=== PATIENT | female | born 1935 | race Caucasian/White ===

== ENCOUNTER 2016-10-17 10:54 | Emergency (ER) | payer MEDICARE, OTHER ==
[~2016-10-17] VITALS: Ht 167.6 cm; Wt 54.0 kg
[~2016-10-17 10:54] MED LIST: AMIO200T PO; BACT800T5 PO; CHOL400D2 PO; DOXY100C PO; HYDR-3516 PO; LOSA25TA PO
[2016-10-17 10:55] VITALS: BP 176/81; PULSE 65; RESP 15; TEMP 97.8; O2SAT 97
[2016-10-17] MEDS ORDERED: EXCETAB2 PO (12:57)
--- NOTE | 2016-10-17 13:02 | PD ---
HPI Chief Complaint: Medical Clearance Time Seen by Provider: 12:39 Travel History International Travel<30 days: No Contact w/Intl Traveler<30days: No Traveled to known affect area: No History of Present Illness HPI The patient was seen and examined in the presence of the nurse. This patient reports that she went to bed feeling fine. She woke up this morning with some bruising left side of the face. She has no injury. Not having pain. No presyncopal symptoms. She takes no blood thinners. Severity is mild. No alleviating factors. Duration 6 hours PFSH Past Medical History Arthritis: Yes Asthma: No Atrial Fibrillation: Yes Autoimmune Disease: No Blood Disorders: No Anxiety: Yes Depression: Yes Heart Rhythm Problems: Yes (AF) Cancer: Yes (skin cancer, removed) Cardiovascular Problems: Yes (AFIB) High Cholesterol: No Chemotherapy: No Chest Pain: No Congestive Heart Failure: No COPD: Yes Cerebrovascular Accident: No Diabetes: No Diminished Hearing: No Endocrine: No Gastrointestinal Disorders: Yes GERD: Yes Genitourinary: No Headaches: Yes Hiatal Hernia: No Hypertension: Yes Immune Disorder: No Kidney Stones: No Musculoskeletal: Yes (Torn rotator cuff (R)) Neurologic: No Psychiatric: Yes Reproductive: No Respiratory: Yes Migraines: No Radiation Therapy: No Renal Failure: No Seizures: No Sickle Cell Disease: No Sleep Apnea: No Thyroid Disease: No Ulcer: No Menopausal: Yes : 2 Para: 2 Past Surgical History Abdominal Surgery: No AICD: No Arteriovenous Shunt: No Cardiac Surgery: No Ear Surgery: No Endocrine Surgery: No Eye Surgery: No Genitourinary Surgery: No Gynecologic Surgery: No Insulin Pump: No Joint Replacement: Yes (BL hips) Oral Surgery: No Pacemaker: No Thoracic Surgery: No Tonsillectomy: Yes Other Surgery: Yes Social History Alcohol Use: No Tobacco Use: No (QUIT 1966) Substance Use: No Allergies-Medications (Allergen,Severity, Reaction): Coded Allergies: Codeine (Verified Allergy, Severe, Itching, 10/17/16) Reported Meds & Prescriptions Reported Meds & Active Scripts Active Reported Excedrin Extra Strength (Fvgstpl-Jwgfhxuaxvovd-Heplzvog) 250-250-65 Mg Tab 2 Tab PO DAILY PRN Vitamin D (Cholecalciferol) 400 Unit/Ml Drops 400 Units PO DAILY Losartan (Losartan Potassium) 25 Mg Tab 25 Mg PO DAILY Hydrocodone-Acetaminophen 5-325 mg Tab 1 Tab PO Q6H PRN Amiodarone (Amiodarone HCl) 200 Mg Tab 200 Mg PO DAILY Review of Systems General / Constitutional: No: Fever Eyes: No: Visual changes HENT: No: Headaches Cardiovascular: No: Chest Pain or Discomfort Respiratory: No: Shortness of Breath Gastrointestinal: No: Abdominal Pain Genitourinary: No: Dysuria Musculoskeletal: No: Pain Skin: Positive Change in Pigmentation, No Rash Neurologic: No: Weakness Psychiatric: No: Depression Endocrine: No: Polydipsia Hematologic/Lymphatic: No: Easy Bruising Physical Exam Narrative GENERAL: Well-nourished, well-developed patient in no apparent distress. SKIN: Warm and dry. HEAD: There is some left medial periorbital ecchymosis. Normocephalic. No nasal bridge or orbital tenderness. EYES: Pupils equal and round. No scleral icterus. No injection or drainage. ENT: No nasal bleeding or discharge. Mucous membranes pink and moist. NECK: Trachea midline. No JVD. CARDIOVASCULAR: Regular rate and rhythm. No murmur appreciated. RESPIRATORY: No accessory muscle use. Clear to auscultation. Breath sounds equal bilaterally. GASTROINTESTINAL: Abdomen soft, non-tender, nondistended. Hepatic and splenic margins not palpable. MUSCULOSKELETAL: No obvious deformities. No clubbing. No cyanosis. No edema. NEUROLOGICAL: Awake and alert. No obvious cranial nerve deficits. Motor grossly within normal limits. Normal speech. PSYCHIATRIC: Appropriate mood and affect; insight and judgment normal. Data Data Last Documented VS Vital Signs Date Time Temp Pulse Resp B/P Pulse Ox O2 Delivery O2 Flow Rate FiO2 10/17/16 13:21 63 18 182/86 98 Room Air 10/17/16 10:55 97.8 Orders Complete Blood Count With Diff (10/17/16 12:54) Labs Laboratory Tests Test 10/17/16 13:00 White Blood Count 5.2 TH/MM3 Red Blood Count 3.57 MIL/MM3 Hemoglobin 11.7 GM/DL Hematocrit 35.1 % Mean Corpuscular Volume 98.4 FL Mean Corpuscular Hemoglobin 32.7 PG Mean Corpuscular Hemoglobin 33.2 % Concent Red Cell Distribution Width 14.9 % Platelet Count 221 TH/MM3 Mean Platelet Volume 7.2 FL Neutrophils (%) (Auto) 59.0 % Lymphocytes (%) (Auto) 27.4 % Monocytes (%) (Auto) 8.0 % Eosinophils (%) (Auto) 5.1 % Basophils (%) (Auto) 0.5 % Neutrophils # (Auto) 3.1 TH/MM3 Lymphocytes # (Auto) 1.4 TH/MM3 Monocytes # (Auto) 0.4 TH/MM3 Eosinophils # (Auto) 0.3 TH/MM3 Basophils # (Auto) 0.0 TH/MM3 CBC Comment DIFF FINAL Differential Comment MDM Medical Decision Making Medical Screen Exam Complete: Yes Emergency Medical Condition: Yes Medical Record Reviewed: Yes Differential Diagnosis ITP, critical thrombocytopenia, spontaneous ecchymosis Narrative Course I have reviewed the patient's electronic medical record. No prior lab studies on file CBC shows normal hemoglobin and normal platelet count Patient's exam other than some spontaneous ecchymosis looks normal with no tenderness or neurologic deficit. Recommend primary care follow-up to start Diagnosis Primary Impression: Facial bruising Qualified Code: S00.83XA - Facial bruising, initial encounter Additional Instructions: The patient was advised to follow up with their physician and return if they worsen. Med/Other Pt SpecificInfo: Other Disposition: 01 DISCHARGE HOME Condition: Stable Jayson Lutz MD Oct 17, 2016 13:02
[2016-10-17 13:21] VITALS: BP 182/86; PULSE 63; RESP 18; O2SAT 98
[2016-10-17 13:28] LABS: AUTOMATED NEUTROPHIL # 3.1 TH/MM3 (1.8-7.7); BASOPHIL % 0.5 % (0.0-2.0); EOSINOPHIL # 0.3 TH/MM3 (0-0.4); EOSINOPHIL % 5.1 % (0.0-4.0); HEMATOCRIT 35.1 % (35.0-46.0); HEMO FLAGS DIFF FINAL; LYMPH % 27.4 % (9.0-44.0); LYMPHOCYTE # 1.4 TH/MM3 (1.0-4.8); MEAN CELL VOLUME 98.4 FL (80.0-100.0); MEAN CORPUSCULAR HEMOGLOBIN 32.7 PG (27.0-34.0); MEAN CORPUSCULAR HGB CONC 33.2 % (32.0-36.0); PLATELET COUNT 221 TH/MM3 (150-450); RED BLOOD COUNT 3.57 MIL/MM3 (4.00-5.30); RED CELL DISTRIBUTION WIDTH 14.9 % (11.6-17.2); WHITE BLOOD COUNT 5.2 TH/MM3 (4.0-11.0)
== END 2016-10-17 14:40 | disposition home or self-care (01) ==
LOC: NEPA 10:54
DX: S00.83XA Contusion of other part of head, initial encounter (principal); I48.91 Unspecified atrial fibrillation; F32.9 Major depressive disorder, single episode, unspecified; J44.9 Chronic obstructive pulmonary disease, unspecified; K21.9 Gastro-esophageal reflux disease without esophagitis; I10 Essential (primary) hypertension; X58.XXXA Exposure to other specified factors, initial encounter; Y92.003 Bedroom of unspecified non-institutional (private) residence as the place of occurrence of the external cause
CPT/HCPCS: 85025; 99283

== ENCOUNTER 2017-09-02 23:16 | Emergency (ER) | payer MEDICARE, OTHER ==
[~2017-09-02] VITALS: Ht 167.6 cm; Wt 55.0 kg
[~2017-09-02 23:16] MED LIST changes: -BACT800T5 PO; -DOXY100C PO; +EXCETAB2 PO
[2017-09-02 23:24] VITALS: BP 150/68; PULSE 65; RESP 18; O2SAT 97
--- NOTE | 2017-09-03 00:25 | PD ---
HPI Chief Complaint: Fall Time Seen by Provider: 00:25 Travel History International Travel<30 days: No Contact w/Intl Traveler<30days: No Traveled to known affect area: No History of Present Illness HPI 82-year-old female came to the emergency room with history of trip and fall. Patient when she fell hit her head and fell on outstretched hand. Currently patient is complaining of left wrist pain and a skin tear on her right elbow area. She also is complaining of some head and neck pain. She is otherwise awake and answering questions appropriately. She was brought in by EMS and her wrist was splinted by them in the cardboard splint. [facility] Past Medical History Narrative Medical List of her past medical, surgical, social and family history is reviewed from the nursing note. Arthritis: Yes Asthma: No Atrial Fibrillation: Yes Autoimmune Disease: No Blood Disorders: No Anxiety: Yes Depression: Yes Heart Rhythm Problems: Yes (AF) Cancer: Yes (skin cancer, removed) Cardiovascular Problems: Yes (AFIB) High Cholesterol: No Chemotherapy: No Chest Pain: No Congestive Heart Failure: No COPD: Yes Cerebrovascular Accident: No Diabetes: No Diminished Hearing: No Endocrine: No Gastrointestinal Disorders: Yes GERD: Yes Genitourinary: No Headaches: Yes Hiatal Hernia: No Hypertension: Yes Immune Disorder: No Kidney Stones: No Musculoskeletal: Yes (Torn rotator cuff (R)) Neurologic: No Psychiatric: Yes Reproductive: No Respiratory: Yes Migraines: No Radiation Therapy: No Renal Failure: No Seizures: No Sickle Cell Disease: No Sleep Apnea: No Thyroid Disease: No Ulcer: No Menopausal: Yes : 2 Para: 2 Past Surgical History Abdominal Surgery: No AICD: No Arteriovenous Shunt: No Cardiac Surgery: No Ear Surgery: No Endocrine Surgery: No Eye Surgery: No Genitourinary Surgery: No Gynecologic Surgery: No Insulin Pump: No Joint Replacement: Yes (BL hips) Oral Surgery: No Pacemaker: No Thoracic Surgery: No Tonsillectomy: Yes Other Surgery: Yes Social History Alcohol Use: No Tobacco Use: No (QUIT 1966) Substance Use: No Allergies-Medications (Allergen,Severity, Reaction): Coded Allergies: codeine (Unverified Allergy, Severe, Itching, 09/02/17) Comments List of her allergies reviewed from the nursing note. Reported Meds & Prescriptions Reported Meds & Active Scripts Active Reported Mirtazapine 7.5 Mg Tab 7.5 Mg PO HS Latanoprost Opth Drops (Latanoprost) 0.005% Drops 1 Drop EACH EYE HS Refrigerate until opened. Klor-Con 10 (Potassium Chloride) 10 Meq Tab 10 Meq PO DAILY Furosemide 20 Mg Tab 20 Mg PO DAILY Folic Acid 0.8 Mg Tab 1 Mg PO DAILY Amlodipine (Amlodipine Besylate) 10 Mg Tab 10 Mg PO DAILY Xarelto (Rivaroxaban) 20 Mg Tab 20 Mg PO DAILY Vitamin B-12 (Cyanocobalamin) 1,000 Mcg Tab 1,000 Mcg PO DAILY Losartan (Losartan Potassium) 25 Mg Tab 25 Mg PO DAILY Hydrocodone-Acetaminophen 5-325 mg Tab 1 Tab PO Q6H PRN Amiodarone (Amiodarone HCl) 200 Mg Tab 200 Mg PO DAILY Narrative Medication List of her home medications reviewed from the nursing note. Review of Systems Except as stated in HPI: all other systems reviewed are Neg Physical Exam Narrative GENERAL: Awake, alert, elderly, frail, moderate distress SKIN: Focused skin assessment warm/dry. Moderate-sized skin tear on the right elbow posteriorly with some moderate oozing HEAD: Atraumatic. Normocephalic. EYES: Pupils equal and round. No scleral icterus. No injection or drainage. ENT: No nasal bleeding or discharge. Mucous membranes pink and moist. NECK: Trachea midline. No JVD. CARDIOVASCULAR: Regular rate and rhythm. No murmur appreciated. RESPIRATORY: No accessory muscle use. Clear to auscultation. Breath sounds equal bilaterally. GASTROINTESTINAL: Abdomen soft, non-tender, nondistended. Hepatic and splenic margins not palpable. MUSCULOSKELETAL: Right wrist deformity present but distal neurovascular check intact. No clubbing. No cyanosis. No edema. NEUROLOGICAL: Awake and alert. No obvious cranial nerve deficits. Motor grossly within normal limits. Normal speech. PSYCHIATRIC: Appropriate mood and affect; insight and judgment normal. Data Data Last Documented VS Orders Orders Ct Brain W/O Iv Contrast(Rout) (09/03/17 ) Ct Cerv Spine W/O Contrast (09/03/17 ) Wrist, Complete ([id number]) (09/03/17 ) Morphine Inj (Morphine Inj) (09/03/17 00:45) Ondansetron Inj (Zofran Inj) (09/03/17 00:45) Tetanus/Diphtheria Tox Adult (Tetanus/Di (09/03/17 00:45) Splinting (09/03/17 ) Wrist, Complete (Tpi2xng) (09/03/17 ) Ed Discharge Order (09/03/17 03:39) Fiberglass Sugartong Sp Ad Arm (09/03/17 ) Sling Cradle Arm (09/03/17 ) Diet Heart Healthy (09/03/17 Breakfast) MDM Medical Decision Making Medical Screen Exam Complete: Yes Emergency Medical Condition: Yes Medical Record Reviewed: Yes Differential Diagnosis Wrist fracture, intracranial bleed, cervical fracture Narrative Course 3:36 AM x-ray of the wrist was suggestive of displaced distal radius fracture. CT scan were negative for any intracranial bleed or cervical fracture. The oral surgery technician applied the sugar tong splint along with some manipulation. Postreduction x-ray shows significant anatomic alignment of the bony fragment. I discussed the case with the orthopedist Dr. Land was okay to discharge the patient home and she would follow-up in her office and decide if any surgery needed. I will discharge her home. Patient was medicated for pain. Procedures EKG Prior to Arrival: No Physician Communication Physician Communication Dr. Land Diagnosis Primary Impression: Fall Qualified Codes: W19.XXXA - Unspecified fall, initial encounter Additional Impressions: Wrist fracture Qualified Codes: S62.102A - Fracture of unspecified carpal bone, left wrist, initial encounter for closed fracture Closed head injury Qualified Codes: S09.90XA - Unspecified injury of head, initial encounter Skin tear of elbow without complication Qualified Codes: S51.011A - Laceration without foreign body of right elbow, initial encounter Referrals: Adeola Land MD 2 days Additional Instructions: Please follow-up with the orthopedist was name and number been given to you and the discharge instruction. Keep this splint clean and dry. Take Tylenol for pain. Return to the ER if the condition worsens or any other new concerns. Keep the arm elevated above the heart level to minimize the swelling. Med/Other Pt SpecificInfo: No Change to Meds Disposition: 01 DISCHARGE HOME Condition: Stable Rut Carmen MD Sep 03, 2017 00:25
[2017-09-03] MEDS ORDERED: VITA10002 PO (00:31)
[2017-09-03] MEDS ORDERED: XARE20TA PO (00:31)
[2017-09-03] MEDS ORDERED: FOLI800T PO (00:35)
[2017-09-03] MEDS ORDERED: FURO20TA PO (00:35)
[2017-09-03] MEDS ORDERED: KLOR10TA PO (00:35)
[2017-09-03] MEDS ORDERED: AMLO10TA2 PO (00:35)
[2017-09-03] MEDS ORDERED: LATA0.002 EACH EYE (00:35)
[2017-09-03] MEDS ORDERED: MIRT1TAB PO (00:35)
[2017-09-03] MEDS ORDERED: MORPHINE SULFATE 4 MG/ML INJ IV PUSH ONE (00:45)
[2017-09-03] MEDS ORDERED: ONDANSETRON HCL 4 MG/2 ML VIAL IV PUSH ONE (00:45)
[2017-09-03] MEDS ORDERED: TETANUS/DIPHTHERIA TOXOID ADULT 0.5 ML VIAL IM ONE (00:45)
--- NOTE | 2017-09-03 00:59 | RADRPT ---
EXAM DATE/TIME: 09/03/2017 00:41 [facility] COMPARISON: No previous studies available for comparison. INDICATIONS : Left wrist pain. MEDICAL HISTORY : None. SURGICAL HISTORY : None. ENCOUNTER: Initial ACUITY: 1 day PAIN SCORE: 8/10 LOCATION: Left wrist FINDINGS: AP, lateral and oblique views of the left wrist were obtained and demonstrate a transverse fracture t hrough the distal radius with slight impaction and dorsal angulation of the distal fracture fragment of approximately 40. There is a small nondisplaced fracture through the base of the ulnar styloid. T here is diffuse moderate osteopenia. Degenerative changes noted involving the first metacarpocarpal j oint and trapezium scaphoid joint with joint space loss, sclerosis and hypertrophic change. Soft tiss ue swelling is noted over the wrist. CONCLUSION: 1. Transverse fracture through the distal radius with dorsal angulation. 2. Small nondisplaced fracture through the base of the ulnar styloid. 3. Osteopenia and osteoarthritic change. Haroon Lanier MD on September 03, 2017 at 0:55 Board Certified Radiologist. This report was verified electronically.
--- NOTE | 2017-09-03 01:36 | RADRPT ---
EXAM DATE/TIME: 09/03/2017 01:14 [facility] COMPARISON: CT BRAIN W/O CONTRAST, March 21, 2015, 10:53. INDICATIONS : Trauma, fall. Left facial bruising. RADIATION DOSE: 35.33 CTDIvol (mGy) MEDICAL HISTORY : Hypertension. A-Fib. SURGICAL HISTORY : None. ENCOUNTER: Initial ACUITY: 1 day PAIN SCALE: 3/10 LOCATION: cranial TECHNIQUE: Multiple contiguous axial images were obtained of the head. Using automated exposure control and adj ustment of the mA and/or kV according to patient size, radiation dose was kept as low as reasonably a chievable to obtain optimal diagnostic quality images. DICOM format image data is available electro nically for review and comparison. FINDINGS: CEREBRUM: The ventricles are normal for age. Chronic small vessel ischemic changes are again noted in the [place] ventricular white matter. This is not significantly changed. No evidence of midline shift, mass lesio n, hemorrhage or acute infarction. No extra-axial fluid collections are seen. POSTERIOR FOSSA: The cerebellum and brainstem are intact. The 4th ventricle is midline. The cerebellopontine angle i s unremarkable. EXTRACRANIAL: The visualized portion of the orbits is intact. SKULL: The calvaria is intact. No evidence of skull fracture. CONCLUSION: 1. Soft tissue swelling over the left frontal bone with no evidence of fracture or hemorrhage. 2. Chronic small vessel ischemic change. Some report Haroon Lanier MD on September 03, 2017 at 1:33 Board Certified Radiologist. This report was verified electronically.
--- NOTE | 2017-09-03 01:51 | RADRPT ---
EXAM DATE/TIME: 09/03/2017 01:14 [facility] COMPARISON: No previous studies available for comparison. INDICATIONS : Trauma, fall. RADIATION DOSE: 12.52 CTDIvol (mGy) MEDICAL HISTORY : Hypertension. A-Fib. SURGICAL HISTORY : None. ENCOUNTER: Initial ACUITY: 1 day PAIN SCALE: 0/10 LOCATION: neck TECHNIQUE: Volumetric scanning of the cervical spine was performed. Multiplanar reconstructions in the sagittal, coronal and oblique axial planes were performed. Using automated exposure control and adjustment o f the mA and/or kV according to patient size, radiation dose was kept as low as reasonably achievable to obtain optimal diagnostic quality images. DICOM format image data is available electronically f or review and comparison. FINDINGS: The sagittal reconstructions demonstrate normal prevertebral soft tissues. The dens is intact and the re is a normal atlantoaxial relationship. There is a mild anterior spondylolisthesis of C3 on C4 and C4 on C5 of several millimeters. There is fusion of the C5 and C6 vertebral bodies. Degenerative gil ges present at the C6-7 level with disc space narrowing and hypertrophic change. There is a mild to m oderate scoliosis. There is diffuse osteopenia. The axial images demonstrate that the vertebral bodies and posterior elements are intact. The soft ti ssues are within normal limits. There is no evidence of acute fracture or malalignment. Degenerative changes are noted involving the facet joints. CONCLUSION: 1. No acute fracture. 2. Mild anterospondylolisthesis of C4 on C5-C3 on C4. 3. Osteopenia and mild to moderate scoliosis. 4. Partial fusion of the C5 and C6 vertebral bodies. 5. Degenerative disc change at the C6-7 level. Haroon Lanier MD on September 03, 2017 at 1:47 Board Certified Radiologist. This report was verified electronically.
--- NOTE | 2017-09-03 03:04 | RADRPT ---
EXAM DATE/TIME: 09/03/2017 02:25 [facility] COMPARISON: WRIST LEFT COMPLETE ([id number]), September 03, 2017, 0:41. INDICATIONS : Post reduction left wrist fracture. Pain.. MEDICAL HISTORY : None. SURGICAL HISTORY : None. ENCOUNTER: Subsequent ACUITY: 1 day PAIN SCORE: 4/10 LOCATION: Left wrist. FINDINGS: AP, lateral oblique view is of the left wrist were obtained and demonstrate overlying casting materia l obscuring the fine bony detail. The transverse fracture through the distal radius is again noted. T he previous noted dorsal angulation of the distal fracture fragment has been reduced. A small fractur e is again noted through the ulnar styloid. There is diffuse osteopenia and degenerative joint change s. CONCLUSION: Interval reduction of previously noted angulation of the fracture fragments. The frac ture fragments are now in near-anatomic alignment. Haroon Lanier MD on September 03, 2017 at 3:01 Board Certified Radiologist. This report was verified electronically.
== END 2017-09-03 10:06 | disposition home or self-care (01) ==
LOC: NEPC 23:16
DX: S52.502A Unspecified fracture of the lower end of left radius, initial encounter for closed fracture (principal); S52.615A Nondisplaced fracture of left ulna styloid process, initial encounter for closed fracture; M85.88 Other specified disorders of bone density and structure, other site; S09.90XA Unspecified injury of head, initial encounter; S51.011A Laceration without foreign body of right elbow, initial encounter; M54.2 Cervicalgia; I10 Essential (primary) hypertension; W01.0XXA Fall on same level from slipping, tripping and stumbling without subsequent striking against object, initial encounter; Z23 Encounter for immunization
CPT/HCPCS: 70450; 72125; 73110; 90471; 90714; 96374; 96375; 99285; J2270; J2405

== ENCOUNTER 2017-09-14 20:11 | Inpatient (IN) | payer MEDICARE, OTHER ==
[~2017-09-14] VITALS: Ht 167.6 cm; Wt 52.7 kg
[~2017-09-14 20:11] MED LIST changes: +AMLO10TA2 PO; -CHOL400D2 PO; -EXCETAB2 PO; +FOLI800T PO; +FURO20TA PO; +KLOR10TA PO; +LATA0.002 EACH EYE; +MIRT1TAB PO; +VITA10002 PO; +XARE20TA PO
[2017-09-14 20:14] VITALS: PULSE 118; RESP 18; TEMP 97.6; O2SAT 89
[2017-09-14] MEDS ORDERED: cefTRIAXone INJ 2,000 MG in SODIUM CHLORIDE 0.9% INJ 100 ML IV STA (20:19)
[2017-09-14] MEDS ORDERED: AZITHROMYCIN INJ 500 MG in SODIUM CHLOR 0.9% 250 ML INJ 250 ML IV STA (20:19)
--- NOTE | 2017-09-14 20:26 | PD ---
HPI Chief Complaint: Weakness Time Seen by Provider: 20:19 Travel History International Travel<30 days: No Contact w/Intl Traveler<30days: No History of Present Illness HPI The patient's 82 years old and arrives by EMS. EMS reports general weakness over the course of the day increasingly so. Nausea also reported. EMS notes applying a nonrebreather to the patient when they arrived on scene. Her O2 sat upon arrivals in the mid 90s. She complains of feeling cold and having no other upon arrival. In essence a heart rate of about 100-120 irregular consistent with a known history of A. fib. PFSH Past Medical History Arthritis: Yes Asthma: No Atrial Fibrillation: Yes Autoimmune Disease: No Blood Disorders: No Anxiety: Yes Depression: Yes Heart Rhythm Problems: Yes (AF) Cancer: Yes (skin cancer, removed) Cardiovascular Problems: Yes (AFIB) High Cholesterol: No Chemotherapy: No Chest Pain: No Congestive Heart Failure: No COPD: Yes Cerebrovascular Accident: No Diabetes: No Diminished Hearing: No Endocrine: No Gastrointestinal Disorders: Yes GERD: Yes Genitourinary: No Headaches: Yes Hiatal Hernia: No Hypertension: Yes Immune Disorder: No Kidney Stones: No Musculoskeletal: Yes (Torn rotator cuff (R)) Neurologic: No Psychiatric: Yes Reproductive: No Respiratory: Yes Migraines: No Radiation Therapy: No Renal Failure: No Seizures: No Sickle Cell Disease: No Sleep Apnea: No Thyroid Disease: No Ulcer: No Menopausal: Yes : 2 Para: 2 Past Surgical History Abdominal Surgery: No AICD: No Arteriovenous Shunt: No Cardiac Surgery: No Ear Surgery: No Endocrine Surgery: No Eye Surgery: No Genitourinary Surgery: No Gynecologic Surgery: No Insulin Pump: No Joint Replacement: Yes (BL hips) Oral Surgery: No Pacemaker: No Thoracic Surgery: No Tonsillectomy: Yes Other Surgery: Yes Social History Alcohol Use: No Tobacco Use: No (QUIT 1966) Substance Use: No Allergies-Medications (Allergen,Severity, Reaction): Coded Allergies: codeine (Unverified Allergy, Severe, Itching, 09/02/17) Reported Meds & Prescriptions Reported Meds & Active Scripts Active Reported Mirtazapine 7.5 Mg Tab 7.5 Mg PO HS Latanoprost Opth Drops (Latanoprost) 0.005% Drops 1 Drop EACH EYE HS Refrigerate until opened. Klor-Con 10 (Potassium Chloride) 10 Meq Tab 10 Meq PO DAILY Furosemide 20 Mg Tab 20 Mg PO DAILY Folic Acid 0.8 Mg Tab 1 Mg PO DAILY Amlodipine (Amlodipine Besylate) 10 Mg Tab 10 Mg PO DAILY Xarelto (Rivaroxaban) 20 Mg Tab 20 Mg PO DAILY Vitamin B-12 (Cyanocobalamin) 1,000 Mcg Tab 1,000 Mcg PO DAILY Losartan (Losartan Potassium) 25 Mg Tab 25 Mg PO DAILY Hydrocodone-Acetaminophen 5-325 mg Tab 1 Tab PO Q6H PRN Amiodarone (Amiodarone HCl) 200 Mg Tab 200 Mg PO DAILY Review of Systems Except as stated in HPI: all other systems reviewed are Neg General / Constitutional: Positive: Fever (EMS notes warm to touch) Physical Exam Narrative GENERAL: 82 yo F, well-nourished well-developed mild distress SKIN: Focused skin assessment warm/dry. HEAD: Atraumatic. Normocephalic. EYES: Pupils equal and round. No scleral icterus. No injection or drainage. ENT: No nasal bleeding or discharge. Mucous membranes pink and moist. NECK: Trachea midline. No JVD. CARDIOVASCULAR: Irregular. Heart rate about 110. RESPIRATORY: Coarse breath sounds in the left. Lungs clear in the right. GASTROINTESTINAL: Abdomen soft, non-tender, nondistended. Hepatic and splenic margins not palpable. MUSCULOSKELETAL: No obvious deformities. No clubbing. No cyanosis. No edema. Proximal medial right arm with a 2 cm skin tear. NEUROLOGICAL: Awake and alert. No obvious cranial nerve deficits. Motor grossly within normal limits. Normal speech. PSYCHIATRIC: Appropriate mood and affect; insight and judgment normal. Data Data Last Documented VS Vital Signs Date Time Temp Pulse Resp B/P (MAP) Pulse Ox O2 Delivery O2 Flow Rate FiO2 09/14/17 20:26 92 Nasal Cannula 2.00 09/14/17 20:14 97.6 118 18 Orders Orders Sepsis Workup Initiated (09/14/17 ) Electrocardiogram (09/14/17 20:19) Complete Blood Count With Diff (09/14/17 20:19) Comprehensive Metabolic Panel (09/14/17 20:19) Lactic Acid Sepsis Protocol (09/14/17 20:19) Urinalysis - C+S If Indicated (09/14/17 20:19) Influenzae A/B Antigen (09/14/17 20:19) Blood Culture (09/14/17 20:19) Chest, Single Ap (09/14/17 20:19) Blood Glucose (09/14/17 20:19) Ecg Monitoring (09/14/17 20:19) Iv Access Insert/Monitor (09/14/17 20:19) Oximetry (09/14/17 20:19) Oxygen Administration (09/14/17 20:19) Ceftriaxone Inj (Rocephin Inj) (09/14/17 20:19) Azithromycin Inj (Zithromax Inj) (09/14/17 20:19) Acetaminophen (Tylenol) (09/14/17 20:30) ^ Straight Catheter (09/14/17 21:12) B-Type Natriuretic Peptide (09/14/17 21:37) Admit Order (Ed Use Only) (09/14/17 ) Biomedical Engineering Internship / Telemetry [place].Q8H (09/14/17 21:44) Vital Signs (Adult) Q4H (09/14/17 21:44) Diet Heart Healthy (09/15/17 Breakfast) Activity Bed Rest (09/14/17 21:44) Labs Laboratory Tests Test 09/14/17 20:30 09/14/17 21:30 White Blood Count 18.9 TH/MM3 Red Blood Count 3.33 MIL/MM3 Hemoglobin 10.6 GM/DL Hematocrit 31.9 % Mean Corpuscular Volume 95.7 FL Mean Corpuscular Hemoglobin 31.8 PG Mean Corpuscular Hemoglobin Concent 33.3 % Red Cell Distribution Width 14.3 % Platelet Count 394 TH/MM3 Mean Platelet Volume 7.7 FL Neutrophils (%) (Auto) 89.4 % Lymphocytes (%) (Auto) 5.8 % Monocytes (%) (Auto) 2.4 % Eosinophils (%) (Auto) 2.1 % Basophils (%) (Auto) 0.3 % Neutrophils # (Auto) 16.9 TH/MM3 Lymphocytes # (Auto) 1.1 TH/MM3 Monocytes # (Auto) 0.5 TH/MM3 Eosinophils # (Auto) 0.4 TH/MM3 Basophils # (Auto) 0.1 TH/MM3 CBC Comment DIFF FINAL Differential Comment Blood Urea Nitrogen 37 MG/DL Creatinine 1.54 MG/DL Random Glucose 117 MG/DL Total Protein 6.2 GM/DL Albumin 2.6 GM/DL Calcium Level 8.2 MG/DL Alkaline Phosphatase 101 U/L Aspartate Amino Transf (AST/SGOT) 19 U/L Alanine Aminotransferase (ALT/SGPT) 16 U/L Total Bilirubin 0.5 MG/DL Sodium Level 141 MEQ/L Potassium Level 3.2 MEQ/L Chloride Level 108 MEQ/L Carbon Dioxide Level 23.5 MEQ/L Anion Gap 10 MEQ/L Estimat Glomerular Filtration Rate 32 ML/MIN Lactic Acid Level 2.0 mmol/L [facility] Medical Decision Making Medical Screen Exam Complete: Yes Emergency Medical Condition: Yes Medical Record Reviewed: Yes Differential Diagnosis Pneumonia, UTI, anemia, renal failure, electrolyte imbalance Narrative Course CBC & BMP Diagram 09/14/17 20:30 Total Protein 6.2 L, Albumin 2.6 L, Calcium Level 8.2 L, Alkaline Phosphatase 101, Aspartate Amino Transf (AST/SGOT) 19, Alanine Aminotransferase (ALT/SGPT) 16, Total Bilirubin 0.5 Lactic acid 2.0 Rocephin and azithromycin started. Concern for pneumonia potentially UTI. Influenza negative. BNP added. d/w Dr Solo Diagnosis Primary Impression: Pulmonary edema Qualified Codes: J81.0 - Acute pulmonary edema Additional Impression: Nausea Admitting Information Admitting Physician Requests: Admit Devin Martinez MD Sep 14, 2017 20:26
[2017-09-14] MEDS ORDERED: ACETAMINOPHEN 325 MG TAB PO ONE (20:30)
--- NOTE | 2017-09-14 20:47 | RADRPT ---
EXAM DATE/TIME: 09/14/2017 20:37 [facility] COMPARISON: CHEST SINGLE AP, July 14, 2014, 15:17. INDICATIONS : General weakness and possible fever. MEDICAL HISTORY : None. SURGICAL HISTORY : None. ENCOUNTER: Initial ACUITY: 1 day PAIN SCORE: 0/10 LOCATION: Bilateral chest FINDINGS: The heart size is upper limits of normal. The lungs demonstrate diffuse increased interstitial markin gs. There is focal alveolar density seen at the bases bilaterally. There is also some increased densi ty at the lateral right upper lung. There is a calcified granuloma in the lateral right upper lung. T here is a dextrocurvature of the thoracic spine. CONCLUSION: Diffuse increased interstitial markings likely related to edema. There is some accompanying atelectas is or consolidation at the lung bases and lateral right upper lung. Jourdan Betancourt MD on September 14, 2017 at 20:44 Board Certified Radiologist. This report was verified electronically.
[2017-09-14 21:01] LABS: AUTOMATED NEUTROPHIL # 16.9 TH/MM3 (1.8-7.7); BASOPHIL # 0.1 TH/MM3 (0-0.2); BASOPHIL % 0.3 % (0.0-2.0); EOSINOPHIL # 0.4 TH/MM3 (0-0.4); EOSINOPHIL % 2.1 % (0.0-4.0); HEMATOCRIT 31.9 % (35.0-46.0); HEMO FLAGS DIFF FINAL; LYMPH % 5.8 % (9.0-44.0); LYMPHOCYTE # 1.1 TH/MM3 (1.0-4.8); MEAN CELL VOLUME 95.7 FL (80.0-100.0); MEAN CORPUSCULAR HEMOGLOBIN 31.8 PG (27.0-34.0); MEAN CORPUSCULAR HGB CONC 33.3 % (32.0-36.0); MONO % 2.4 % (0.0-8.0); NEUT % 89.4 % (16.0-70.0); PLATELET COUNT 394 TH/MM3 (150-450); RED BLOOD COUNT 3.33 MIL/MM3 (4.00-5.30); RED CELL DISTRIBUTION WIDTH 14.3 % (11.6-17.2); WHITE BLOOD COUNT 18.9 TH/MM3 (4.0-11.0)
[2017-09-14 21:18] LABS: ANION GAP 10 MEQ/L (5-15); AST (GOT) 19 U/L (15-37); BICARBONATE 23.5 MEQ/L (21.0-32.0); BLOOD UREA NITROGEN 37 MG/DL (7-18); CHLORIDE 108 MEQ/L (98-107); GLOMERULAR FILTRATION RATE 32 ML/MIN (>89); POTASSIUM 3.2 MEQ/L (3.5-5.1); SODIUM (NA) 141 MEQ/L (136-145)
[2017-09-14 21:22] LABS: ALKALINE PHOSPHATASE 101 U/L (45-117); ALT (GPT) 16 U/L (10-53); TOTAL BILIRUBIN ADULT 0.5 MG/DL (0.2-1.0)
[2017-09-14] MEDS ORDERED: SODIUM CHLORIDE 0.9% FLUSH 10 ML FLUSH IV FLUSH PRN (22:00)
[2017-09-14] MEDS ORDERED: BISACODYL 10 MG SUPP RECTAL PRN (22:00)
[2017-09-14] MEDS ORDERED: FUROSEMIDE 20 MG/2 ML VIAL IV PUSH ONE (22:00)
[2017-09-14] MEDS ORDERED: LACTULOSE SYRUP 20 GM/30 ML CUP PO PRN (22:00)
[2017-09-14] MEDS ORDERED: ACETAMINOPHEN 325 MG TAB PO PRN (22:00)
[2017-09-14] MEDS ORDERED: MAGNESIUM HYDROXIDE SUSP 30 ML CUP PO PRN (22:00)
[2017-09-14] MEDS ORDERED: SENNOSIDES 8.6 MG TAB PO PRN (22:00)
[2017-09-14] MEDS ORDERED: DEXT 5%-NACL 0.45% 500 ML INJ 500 ML IV ONE (22:00)
[2017-09-14] MEDS ORDERED: ONDANSETRON HCL 4 MG/2 ML VIAL IVP PRN (22:00)
--- NOTE | 2017-09-14 22:00 | HHI.HP ---
HPI Service [facility] Primary Care Physician No Primary Care Physician Admission Diagnosis PNA; CHF; Hypoxia Diagnoses: (1) PNA (pneumonia) Diagnosis: Principal (2) COPD (chronic obstructive pulmonary disease) Diagnosis: Principal (3) CHF (congestive heart failure) Diagnosis: Principal (4) Hypoxia Diagnosis: Principal (5) JH (acute kidney injury) Diagnosis: Principal (6) A-fib Diagnosis: Principal (7) Wrist fracture Diagnosis: Principal Travel History International Travel<30 Days: No Contact w/Intl Traveler <30 Da: No Traveled to Known Affected Are: No History of Present Illness This is an 82-year-old female with a PMH of HTN, A. fib on Xarelto, Anxiety, Depression and presumed CHF who was brought to the ER by EMS secondary to generalized weakness in addition to SOB. O2 sat 89% on RA upon arrival. Pt w/ no significant complaints at this time. BP 100/54, HR 118, O2 sat, 89% on RA, Afebrile. WBC 18.9. Creatinine 1.54, produces 0.901 03/07/16. BNP 163. Lactic Acid 2.0. UA positive for UTI. CXR with increased interstitial markings likely edema, possibly consolidation at the lung bases and lateral right upper lung. S/p Rocephin/Zithro in ER. Review of Systems Except as stated in HPI: all other systems reviewed are Neg ROS: 14 point review of systems otherwise negative. Past Family Social History Past Medical History PMH: HTN, A. fib on Xarelto, Anxiety, Depression and presumed CHF Past Surgical History PAST SURGICAL HISTORY: Bilateral Hip Replacements, Tonsillectomy Allergies: Coded Allergies: codeine (Unverified Allergy, Severe, Itching, 09/02/17) Family History PAST FAMILY HISTORY: Reviewed. No h/o DM or CAD Social History PAST SOCIAL HISTORY: Negative for alcohol, tobacco or drugs. Physical Exam Vital Signs Vital Signs Date Time Temp Pulse Resp B/P (MAP) Pulse Ox O2 Delivery O2 Flow Rate FiO2 09/14/17 20:26 92 Nasal Cannula 2.00 09/14/17 20:14 97.6 118 18 89 Physical Exam PE: GENERAL: Elderly white female in no acute distress, resting comfortably. HEENT: PERRLA, EOMI. No scleral icterus or conjunctival pallor. No lid lag or facial droop. CARDIOVASCULAR: A-fib, HR 90's. No obvious murmurs to auscultation. No chest tenderness to palpation. RESPIRATORY: Coarse breath sounds, few crackles. Breath sounds equal bilaterally. GASTROINTESTINAL: Abdomen soft, non-tender, nondistended. BS normal. MUSCULOSKELETAL: Extremities without clubbing, cyanosis, or edema. No obvious deformities. Right wrist fx. NEUROLOGICAL: Awake, alert. No focal neurologic deficits. Moving both upper and lower extremities spontaneously. Laboratory Laboratory Tests Test 09/14/17 20:30 White Blood Count 18.9 Red Blood Count 3.33 Hemoglobin 10.6 Hematocrit 31.9 Mean Corpuscular Volume 95.7 Mean Corpuscular Hemoglobin 31.8 Mean Corpuscular Hemoglobin Concent 33.3 Red Cell Distribution Width 14.3 Platelet Count 394 Mean Platelet Volume 7.7 Neutrophils (%) (Auto) 89.4 Lymphocytes (%) (Auto) 5.8 Monocytes (%) (Auto) 2.4 Eosinophils (%) (Auto) 2.1 Basophils (%) (Auto) 0.3 Neutrophils # (Auto) 16.9 Lymphocytes # (Auto) 1.1 Monocytes # (Auto) 0.5 Eosinophils # (Auto) 0.4 Basophils # (Auto) 0.1 CBC Comment DIFF FINAL Differential Comment Blood Urea Nitrogen 37 Creatinine 1.54 Random Glucose 117 Total Protein 6.2 Albumin 2.6 Calcium Level 8.2 Alkaline Phosphatase 101 Aspartate Amino Transf (AST/SGOT) 19 Alanine Aminotransferase (ALT/SGPT) 16 Total Bilirubin 0.5 Sodium Level 141 Potassium Level 3.2 Chloride Level 108 Carbon Dioxide Level 23.5 Anion Gap 10 Estimat Glomerular Filtration Rate 32 Lactic Acid Level 2.0 Date/Time Source Procedure Growth Status 09/14/17 20:15 Blood Peripheral Aerobic Blood Culture Pending Received 09/14/17 20:15 Blood Peripheral Anaerobic Blood Culture Pending Received 09/14/17 20:30 Nasal Aspirate Influenza Types A,B Antigen (SAMANTHA) - Final NEGATIVE FOR FLU A AND B ANTIGEN.... Complete Result Diagram: 09/14/17202909/14/172029 Caprini VTE Risk Assessment Caprini VTE Risk Assessment: Mod/High Risk (score >= 2) Caprini Risk Assessment Model Point Value = 1 Point Value = 2 Point Value = 3 Point Value = 5 Age 41-60 Minor surgery BMI > 25 kg/m2 Swollen legs Varicose veins or History of unexplained or recurrent spontaneous Oral contraceptives or hormone replacement Sepsis (< 1 month) Serious lung disease, including pneumonia (< 1 month) Abnormal pulmonary function Acute myocardial infarction Congestive heart failure (< 1 month) History of inflammatory bowel disease Medical patient at bed rest Age 61-74 Arthroscopic surgery Major open surgery (> 45 min) Laparoscopic surgery (> 45 min) Malignancy Confined to bed (> 72 hours) Immobilizing plaster cast Central venous access Age >= 75 History of VTE Family history of VTE Factor V Leiden Prothrombin 30280L Lupus anticoagulant Anticardiolipin antibodies Elevated serum homocysteine Heparin-induced thrombocytopenia Other congenital or acquired thrombophilia Stroke (< 1 month) Elective arthroplasty Hip, pelvis, or leg fracture Acute spinal cord injury (< 1 month) Prophylaxis Regimen Total Risk Factor Score Risk Level Prophylaxis Regimen 0-1 Low Early ambulation 2 Moderate Order ONE of the following: *Sequential Compression Device (SCD) *Heparin 5000 units SQ BID 3-4 Higher Order ONE of the following medications: *Heparin 5000 units SQ TID *Enoxaparin/Lovenox 40 mg SQ daily (WT < 150 kg, CrCl > 30 mL/min) *Enoxaparin/Lovenox 30 mg SQ daily (WT < 150 kg, CrCl > 10-29 mL/min) *Enoxaparin/Lovenox 30 mg SQ BID (WT < 150 kg, CrCl > 30 mL/min) AND/OR *Sequential Compression Device (SCD) 5 or more Highest Order ONE of the following medications: *Heparin 5000 units SQ TID (Preferred with Epidurals) *Enoxaparin/Lovenox 40 mg SQ daily (WT < 150 kg, CrCl > 30 mL/min) *Enoxaparin/Lovenox 30 mg SQ daily (WT < 150 kg, CrCl > 10-29 mL/min) *Enoxaparin/Lovenox 30 mg SQ BID (WT < 150 kg, CrCl > 30 mL/min) AND *Sequential Compression Device (SCD) Assessment and Plan Problem List: (1) PNA (pneumonia) ICD Code: J18.9 - Pneumonia, unspecified organism (2) COPD (chronic obstructive pulmonary disease) ICD Code: J44.9 - Chronic obstructive pulmonary disease, unspecified (3) CHF (congestive heart failure) ICD Code: I50.9 - Heart failure, unspecified (4) Hypoxia ICD Code: R09.02 - Hypoxemia (5) JH (acute kidney injury) ICD Code: N17.9 - Acute kidney failure, unspecified (6) A-fib ICD Code: I48.91 - Unspecified atrial fibrillation (7) Wrist fracture ICD Code: S62.109A - Fracture of unspecified carpal bone, unspecified wrist, initial encounter for closed fracture Assessment and Plan A/P: 1. PNA: CXR w/ likely consolidation at bases/lateral right upper lung, images reviewed by me. WBC 18. S/p Rocephin/Zithro in ER. Follow up cultures, continue w/ IV Abx. 2. COPD: Chronic Respiratory Failure per records, no wheezing on exam. Xopenex prn. 3. CHF: Echo 01/20/14 w/ EF 50-55%, on diuretics at home for recurrent edema, CXR w/ diffuse increased interstitial marking likely due to edema. Repeat Echo to eval systolic/diastolic function. Lasix 20mg IV, monitor I/O. 4. Hypoxia: Multifactorial-COPD/PNA/CHF. O2 sat 89% on RA, currently 95% on 2L NC. Monitor O2 5. JH: Creatinine 1.54, previously 0.90 on 03/07/16. Gentle IVF, caution w/ pulmonary edema. Repeat labs in am. 6. A-fib: Chronic. Resume home Metoprolol and Xarelto. 7. Wrist Fx: s/p mechanical fall 09/03/17, seen in ER at that time, Wrist X- ray w/ distal radius fx, referred to Dr. Land, plan is for surgical intervention on . Will consult for further eval. Analgesics/antiemetics as needed. 8. DVT Prophylaxis: On Xarelto. 9. Social work for d/c planning as needed. 10. Case discussed w/ ER physician at length. Physician Certification 2 Midnight Certification Type: Admission for Inpatient Services Order for Inpatient Services The services are ordered in accordance with Medicare regulations or non- Medicare payer requirements, as applicable. In the case of services not specified as inpatient-only, they are appropriately provided as inpatient services in accordance with the 2-midnight benchmark. Estimated LOS (days): 2 days is the estimated time the patient will need to remain in the hospital, assuming treatment plan goals are met and no additional complications. Post-Hospital Plan: Not yet determined Mima Solo MD Sep 14, 2017 22:00
[2017-09-14 22:14] VITALS: BP 100/54; PULSE 100; RESP 16; O2SAT 95
[2017-09-14 22:21] LABS: BACTERIA, URINE MOD /hpf; BLOOD, URINE NEG (NEG); GLUCOSE,URINE NEG (NEG); KETONE, URINE NEG (NEG); MUCUS URINE FEW /lpf (OCC); NITRITE,URINE NEG (NEG); URINE COLOR YELLOW (YELLW/STRAW)
[2017-09-14 22:22] LABS: COMMENT (UR) CATH-CULTURE IND; CULTURE IF INDICATED CATH CULTURE IND
[2017-09-14] MEDS ORDERED: RESP: LEVALBUTEROL HYDROCHLORIDE 1.25 MG/3 ML NEB (PRN) NEB (22:30)
[2017-09-14] MEDS: MIRTAZAPINE 15 MG TAB PO SCH (22:44)
[2017-09-14] MEDS ORDERED: PILL SPLITTER OTHER PRN (22:45)
[2017-09-14 23:57] VITALS: BP 111/60; PULSE 99; RESP 16; O2SAT 98
[2017-09-15] VITALS (8 sets, daily range): BP systolic 97–132; BP diastolic 50–62; PULSE 61–98; RESP 16–20; TEMP 96.1–98.7; O2SAT 94–99
[2017-09-15 05:39] LABS: AUTOMATED NEUTROPHIL # 18.8 TH/MM3 (1.8-7.7); BASOPHIL % 0.2 % (0.0-2.0); EOSINOPHIL # 0.4 TH/MM3 (0-0.4); EOSINOPHIL % 1.8 % (0.0-4.0); HEMATOCRIT 25.1 % (35.0-46.0); HEMO FLAGS DIFF FINAL; LYMPHOCYTE # 0.8 TH/MM3 (1.0-4.8); MEAN CELL VOLUME 94.2 FL (80.0-100.0); MEAN CORPUSCULAR HEMOGLOBIN 32.5 PG (27.0-34.0); MEAN CORPUSCULAR HGB CONC 34.5 % (32.0-36.0); MONO % 2.6 % (0.0-8.0); NEUT % 91.4 % (16.0-70.0); PLATELET COUNT 298 TH/MM3 (150-450); RED BLOOD COUNT 2.67 MIL/MM3 (4.00-5.30); RED CELL DISTRIBUTION WIDTH 14.7 % (11.6-17.2); WHITE BLOOD COUNT 20.5 TH/MM3 (4.0-11.0)
[2017-09-15 06:10] LABS: BICARBONATE 26.8 MEQ/L (21.0-32.0); CALCIUM-PROTEIN CORRECTED 8.7 MG/DL (8.5-10.1); POTASSIUM 3.2 MEQ/L (3.5-5.1); TOTAL BILIRUBIN ADULT 0.4 MG/DL (0.2-1.0)
--- NOTE | 2017-09-15 08:20 | PD.CONS ---
HPI Service Orthopedic Surgeons Consult Requested By Primary Care Physician No Primary Care Physician Admission Diagnosis PNA; CHF; Hypoxia Diagnoses: (1) PNA (pneumonia) Diagnosis: Principal (2) COPD (chronic obstructive pulmonary disease) (3) CHF (congestive heart failure) (4) Hypoxia (5) JH (acute kidney injury) (6) A-fib (7) Wrist fracture Diagnosis: Secondary Chief Complaint: shortness of breath and left wrist fracture History of Present Illness Patient is an 82-year-old female who presented to [place] with shortness of breath and difficulty breathing, suspicion for pneumonia. Of note, patient did have a left distal radius fracture on September 02 for which she was scheduled for surgery tomorrow, 09/16, pending medical and cardiac clearance. Patient reports she feels a little better already this morning compared to yesterday evening. Denies any new injuries. Review of Systems Constitutional: DENIES: Fever Endocrine: DENIES: Heat/cold intolerance Eyes: DENIES: Blurred vision Ears, nose, mouth, throat: DENIES: Throat pain Respiratory: COMPLAINS OF: Shortness of breath Cardiovascular: DENIES: Chest pain Gastrointestinal: DENIES: Abdominal pain Genitourinary: DENIES: Urinary incontinence Musculoskeletal: COMPLAINS OF: Joint pain, Muscle aches Integumentary: DENIES: Rash Hematologic/lymphatic: COMPLAINS OF: Bruising Immunologic/allergic: DENIES: Eczema Neurologic: DENIES: Abnormal gait Psychiatric: DENIES: Anxiety Past Family Social History Past Medical History PMH: HTN, A. fib on Xarelto, Anxiety, Depression and presumed CHF Past Surgical History PAST SURGICAL HISTORY: Bilateral Hip Replacements, Tonsillectomy Allergies: Coded Allergies: codeine (Unverified Allergy, Severe, Itching, 09/02/17) Active Ordered Medications Current Medications Medications (Trade) Dose Ordered Sig/Herlinda Route Start Time Stop Time Status Last Admin Ceftriaxone Sodium 1000 mg/ Sodium Chloride 100 ml @ 200 mls/hr Q24H IV 09/15/17 21:00 Azithromycin 500 mg/Sodium Chloride 250 ml @ 250 mls/hr Q24H IV 09/15/17 21:00 (Xopenex Neb) 1.25 mg Q4HR NEB PRN NEB 09/14/17 22:30 (Symbicort 160-4.5 Mcg Inh) 2 puff Q12HR INH 09/15/17 09:00 (NS Flush) 2 ml UNSCH PRN IV FLUSH 09/14/17 22:00 (NS Flush) 2 ml BID IV FLUSH 09/15/17 09:00 (Zofran Inj) 4 mg Q6H PRN IVP 09/14/17 22:00 (Tylenol) 650 mg Q6H PRN PO 09/14/17 22:00 (Morphine Inj) 2 mg Q3H PRN IV 09/14/17 22:45 (Velia-Colace) 1 tab BID PO 09/15/17 09:00 (Milk Of Magnesia Liq) 30 ml Q12H PRN PO 09/14/17 22:00 (Senokot) 17.2 mg Q12H PRN PO 09/14/17 22:00 (Dulcolax Supp) 10 mg DAILY PRN RECTAL 09/14/17 22:00 (Lactulose Liq) 30 ml DAILY PRN PO 09/14/17 22:00 (Cordarone) 200 mg DAILY PO 09/15/17 09:00 (Norvasc) 10 mg DAILY PO 09/15/17 09:00 (Vitamin B12) 1,000 mcg DAILY PO 09/15/17 09:00 (Folate) 1 mg DAILY PO 09/15/17 09:00 (Lasix) 20 mg DAILY PO 09/15/17 09:00 (Xalatan 0.005% Opth Soln) 1 drop HS EACH EYE 09/15/17 21:00 (Remeron) 7.5 mg HS PO 09/14/17 22:00 09/14/17 22:44 (Xarelto) 20 mg DAILY PO 09/15/17 09:00 (Pill Splitter) 1 ea UNSCH PRN OTHER 09/14/17 22:45 Reported Meds & Active Scripts Active Reported Mirtazapine 7.5 Mg Tab 7.5 Mg PO HS Latanoprost Opth Drops (Latanoprost) 0.005% Drops 1 Drop EACH EYE HS Refrigerate until opened. Klor-Con 10 (Potassium Chloride) 10 Meq Tab 10 Meq PO DAILY Furosemide 20 Mg Tab 20 Mg PO DAILY Folic Acid 0.8 Mg Tab 1 Mg PO DAILY Amlodipine (Amlodipine Besylate) 10 Mg Tab 10 Mg PO DAILY Xarelto (Rivaroxaban) 20 Mg Tab 20 Mg PO DAILY Vitamin B-12 (Cyanocobalamin) 1,000 Mcg Tab 1,000 Mcg PO DAILY Losartan (Losartan Potassium) 25 Mg Tab 25 Mg PO DAILY Hydrocodone-Acetaminophen 5-325 mg Tab 1 Tab PO Q6H PRN Amiodarone (Amiodarone HCl) 200 Mg Tab 200 Mg PO DAILY Family History PAST FAMILY HISTORY: Reviewed. No h/o DM or CAD Social History PAST SOCIAL HISTORY: Negative for alcohol, tobacco or drugs. Physical Exam Vital Signs Vital Signs Date Time Temp Pulse Resp B/P (MAP) Pulse Ox O2 Delivery O2 Flow Rate FiO2 09/15/17 03:00 98.2 84 17 123/62 (82) 94 09/15/17 02:53 09/15/17 02:51 98 16 110/60 (77) 99 Nasal Cannula 2.00 09/14/17 23:57 99 16 111/60 (77) 98 Nasal Cannula 2.00 09/14/17 22:14 100 16 100/54 (69) 95 Nasal Cannula 2.00 09/14/17 20:26 92 Nasal Cannula 2.00 09/14/17 20:14 97.6 118 18 89 Physical Exam Awake, alert, no acute distress Normocephalic with mild ecchymosis over her face, this is stable from Friday's exam in clinic Pupils equal Moist because membranes No JVD Nonlabored respirations on nasal cannula Regular rate Soft non tender abdomen Left upper extremity: In splint which remains intact. Patient does move her fingers. She has sensation intact over distal fingers. Brisk cap refill Right upper extremity and bilateral lower extremities without deformity or tenderness to palpation. Patient appears neurovascularly intact with full active range of motion and strength. Sensation intact. Radial and dorsalis pedis pulses are palpable. No rash Normal affect Laboratory Laboratory Tests Test 09/14/17 20:30 09/14/17 21:30 09/15/17 04:43 White Blood Count 18.9 20.5 Red Blood Count 3.33 2.67 Hemoglobin 10.6 8.7 Hematocrit 31.9 25.1 Mean Corpuscular Volume 95.7 94.2 Mean Corpuscular Hemoglobin 31.8 32.5 Mean Corpuscular Hemoglobin Concent 33.3 34.5 Red Cell Distribution Width 14.3 14.7 Platelet Count 394 298 Mean Platelet Volume 7.7 7.5 Neutrophils (%) (Auto) 89.4 91.4 Lymphocytes (%) (Auto) 5.8 4.0 Monocytes (%) (Auto) 2.4 2.6 Eosinophils (%) (Auto) 2.1 1.8 Basophils (%) (Auto) 0.3 0.2 Neutrophils # (Auto) 16.9 18.8 Lymphocytes # (Auto) 1.1 0.8 Monocytes # (Auto) 0.5 0.5 Eosinophils # (Auto) 0.4 0.4 Basophils # (Auto) 0.1 0.0 CBC Comment DIFF FINAL DIFF FINAL Differential Comment Blood Urea Nitrogen 37 34 Creatinine 1.54 1.50 Random Glucose 117 120 Total Protein 6.2 4.8 Albumin 2.6 1.9 Calcium Level 8.2 7.4 Alkaline Phosphatase 101 75 Aspartate Amino Transf (AST/SGOT) 19 12 Alanine Aminotransferase (ALT/SGPT) 16 12 Total Bilirubin 0.5 0.4 Sodium Level 141 143 Potassium Level 3.2 3.2 Chloride Level 108 109 Carbon Dioxide Level 23.5 26.8 Anion Gap 10 7 Estimat Glomerular Filtration Rate 32 33 Lactic Acid Level 2.0 B-Type Natriuretic Peptide 163 Urine Color YELLOW Urine Turbidity HAZY Urine pH 5.0 Urine Specific Lamont 1.009 Urine Protein TRACE Urine Glucose (UA) NEG Urine Ketones NEG Urine Occult Blood NEG Urine Nitrite NEG Urine Bilirubin NEG Urine Urobilinogen LESS THAN 2.0 Urine Leukocyte Esterase MOD Urine RBC LESS THAN 1 Urine WBC 10 Urine Amorphous Sediment FEW Urine Bacteria MOD Urine Mucus FEW Microscopic Urinalysis Comment CATH-CULTURE IND Protein Corrected Calcium 8.7 Date/Time Source Procedure Growth Status 09/14/17 20:15 Blood Peripheral Aerobic Blood Culture Pending Received 09/14/17 20:15 Blood Peripheral Anaerobic Blood Culture Pending Received 09/14/17 20:30 Nasal Aspirate Influenza Types A,B Antigen (SAMANTHA) - Final NEGATIVE FOR FLU A AND B ANTIGEN.... Complete 09/14/17 21:30 Urine Catheterized Urine Urine Culture Pending Received Result Diagram: 09/15/1744209/15/17442 Imaging Left wrist radiographs from 09/12 demonstrate a significantly dorsally angulated and displaced distal radius extra articular fracture. Assessment & Plan Assessment and Plan Patient is an 82-year-old female who presented to the hospital with shortness of breath and difficulty breathing, found to have a UTI and Pneumonia. In addition, patient does have a known distal radius fracture for which she is scheduled for surgery tomorrow. Options of management were discussed with the patient and her daughter, FAUSTINO, on Friday in my office. Decision for surgery was made at that time for open reduction internal fixation of her left distal radius. The plan was to attempt to obtain medical and cardiac clearance today. Will ask medicine to optimize and cardiology to evaluate prior to surgery, planned tomorrow afternoon. I will ask that is a relatively held with this in mind, and patient could be started on a more reversible or shorter duration half-life anticoagulation such as Lovenox or heparin. Patient will be nothing by mouth at midnight for possible surgery tomorrow. Adeola Land MD Sep 15, 2017 08:20
[2017-09-15] MEDS ORDERED: AMIODARONE 200 MG TAB PO SCH (09:00)
[2017-09-15] MEDS: BUDESONIDE-FORMOTEROL 160/4.5 MCG INHALER INH SCH ×2 (09:00→21:00)
[2017-09-15] MEDS: SODIUM CHLORIDE 0.9% FLUSH 10 ML FLUSH IV FLUSH SCH ×2 (09:00→21:00)
[2017-09-15] MEDS ORDERED: RIVAROXABAN 20 MG TAB PO SCH (09:00)
[2017-09-15] MEDS: DOCUSATE SODIUM 50 MG/SENNA 8.6 MG TAB PO SCH ×2 (09:00→22:50)
[2017-09-15] MEDS: FOLIC ACID 1 MG TAB PO SCH (10:52)
[2017-09-15] MEDS: FUROSEMIDE 20 MG TAB PO SCH (10:52)
[2017-09-15] MEDS: CYANOCOBALAMIN 1,000 MCG TAB PO SCH (10:52)
--- NOTE | 2017-09-15 14:57 | HHI.PR ---
Subjective Remarks states she was having chills - that's why she was brought in here denies any headaches, cough on admission- noted to be hypoxemic with infiltrates on XRAy with leukocytosis telemetry- episode of a fib with pause by hsitory - history of a fib S/P ablation Objective Vitals Vital Signs Date Time Temp Pulse Resp B/P (MAP) Pulse Ox O2 Delivery O2 Flow Rate FiO2 09/15/17 12:00 96.4 74 16 110/52 (71) 96 09/15/17 08:00 96.1 71 18 113/60 (77) 97 09/15/17 03:00 98.2 84 17 123/62 (82) 94 09/15/17 02:53 09/15/17 02:51 98 16 110/60 (77) 99 Nasal Cannula 2.00 09/14/17 23:57 99 16 111/60 (77) 98 Nasal Cannula 2.00 09/14/17 22:14 100 16 100/54 (69) 95 Nasal Cannula 2.00 09/14/17 20:26 92 Nasal Cannula 2.00 09/14/17 20:14 97.6 118 18 89 I/O 09/14/17 09/14/17 09/14/17 09/15/17 09/15/17 09/15/17 07:00 15:00 23:00 07:00 15:00 23:00 Intake Total 350 ml 740 ml Balance 350 ml 740 ml Intake Oral 240 ml IV Total 350 ml 500 ml # Voids 1 4 # Bowel Movements 0 Result Diagram: 09/15/17 0443 09/15/17 0443 Imaging Last Impressions Chest X-Ray 09/14/17 2019 Signed Impressions: Service Date/Time: Thursday, September 14, 2017 20:37 - CONCLUSION: Diffuse increased interstitial markings likely related to edema. There is some accompanying atelectasis or consolidation at the lung bases and lateral right upper lung. Jourdan Betancourt MD Objective Remarks awake and alert oriented to person, and place old ecchymoses left side of face + bruit left carotid anicteric decrease breath sounds, regular rhythm + 3/6 systolic murmur left sternal border abdomen soft, nontender extremities - LUE- soft cast in place LE no edema, moves both lower extremities spontanously but weak A/P Problem List: (1) PNA (pneumonia) ICD Code: J18.9 - Pneumonia, unspecified organism (2) COPD (chronic obstructive pulmonary disease) ICD Code: J44.9 - Chronic obstructive pulmonary disease, unspecified (3) CHF (congestive heart failure) ICD Code: I50.9 - Heart failure, unspecified (4) Hypoxia ICD Code: R09.02 - Hypoxemia (5) JH (acute kidney injury) ICD Code: N17.9 - Acute kidney failure, unspecified (6) A-fib ICD Code: I48.91 - Unspecified atrial fibrillation (7) Wrist fracture ICD Code: S62.109A - Fracture of unspecified carpal bone, unspecified wrist, initial encounter for closed fracture Assessment and Plan 82 years old likely with underlying dementia- she only recalls Dr. Gabriel as her PCP PNA: CXR w/ likely consolidation at bases/lateral right upper lung, images reviewed by me. WBC 18. on Rocephin/Zithro . continue w/ IV Abx. ff blood cultures UTI- gram negative rods- on IV antibiotics Leukocytosis- on IV antiibotics- ff CBC Acute respiratory failure- continue on 02 supplement CHF: Echo 01/20/14 w/ EF 50-55%, on diuretics at home for recurrent edema, CXR w / diffuse increased interstitial marking likely due to edema. Heart murmur on exam r/o History of A fib S/P ablation- RVR on admission now rate controlled on telemetry with 2 seconds pause- brief asymptomatic Repeat Echo to eval systolic/diastolic function. Lasix 20mg IV, monitor I/ O. try to get records continue on Lasix 20 mg. On Xarelto Monitor on Amiodarone d/w daughter- ff by Dr. Leon as OP - was set up to see him this week for ff up Hypoxia: Multifactorial-COPD/PNA/CHF. O2 sat 89% on RA, currently 95% on 2L NC. Monitor O2 JH: r/o underlying CKI will try to get more recent labs from clinic for comparison Creatinine 1.54, previously 0.90 on 03/07/16. - in EMR Gentle IVF, caution w/ pulmonary edema. Repeat labs in am. Anemia- drop in H- received 1L IV- recheck in am. no external signs of bleeding Hypokalemia- replace with KCL 10 meq IV x 1. KCL po x 1. BMP in am Wrist Fx: s/p mechanical fall 09/03/17, seen in ER at that time, Wrist X-ray w/ distal radius fx, referred to Dr. Land, plan is for surgical intervention. Analgesics/ antiemetics as needed. Carotid bruit Left get carotid US DVT Prophylaxis: On Xarelto. Social work for d/c planning as needed. called phone # listed on phone- no answer Bree Terrell MD Sep 15, 2017 14:57
[2017-09-15] MEDS ORDERED: POTASSIUM CHLORIDE 25 MEQ EFFERVESCENT TAB PO ONE (15:15)
[2017-09-15] MEDS ORDERED: POTASSIUM CHLOR 10 MEQ PREMIX 100 ML IV ONE (15:15)
--- NOTE | 2017-09-15 17:57 | EKG ---
Date Performed: 09/14/2017 Time Performed: 20:30:13 PTAGE: 82 years EKG: ATRIAL FIBRILLATION WITH RAPID VENTRICULAR RESPONSE NONSPECIFIC ST & T-WAVE ABNORMALITY ABN ORMAL RHYTHM ECG Since PREVIOUS TRACING , no significant change noted PREVIOUS TRACIN01/21/2014 15.36 DOCTOR: Portia Norwood Interpretating Date/Time 09/15/2017 17:55:56
--- NOTE | 2017-09-15 22:44 | RADRPT ---
EXAM DATE/TIME: 09/15/2017 18:57 [facility] COMPARISON: No previous studies available for comparison. EXTERNAL COMPARISON : [facility], MRA CAROTIDS W/ 3D PROC. W CONTRAST November 09, 2015., November 09, 2015 INDICATIONS : Bruit, left side. MEDICAL HISTORY : Chronic obstructive pulmonary disease. Hypertension. Gastroesophageal reflux disease. Atrial fibrilla tion. Dizziness. Congestive heart failure. Emphysema. Arthritis. SURGICAL HISTORY : Tonsillectomy. Bilateral hip replacement. Left knee surgery. Skin cancer removed. ENCOUNTER: Initial ACUITY: 1 day PAIN SCORE: 10/08 LOCATION: Bilateral neck PEAK SYSTOLIC VELOCITIES (cm/sec): ICA/CCA RATIO: Right: 1.1 Left: 2.2 ICA: Right: 95.0 Left: 168.9 CCA: Right: 89.1 Left: 77.4 ECA: Right: 81.4 Left: 98.8 VERTEBRAL: Right: 59.6 antegrade Left: 61.2 antegrade Elevated flow velocities and ICA/CCA ratios have been found to correlate with increased degrees of vessel stenosis, calculated as percentage of diameter relative to a normal segment of distal ICA/CCA FINDINGS: RIGHT CAROTID: No significant stenosis is visualized. The waveforms are within normal limits. LEFT CAROTID: Focal echogenic plaque in the carotid bulb and distal common carotid artery. There is mild widening of the velocity spectrum. VERTEBRAL ARTERIES: Antegrade flow is seen in both vertebral arteries. MISCELLANEOUS: None. CONCLUSION: 1. Moderate plaque formation in the left carotid bulb with hemodynamic profile characteristic of 50-6 9% stenosis. 2. Normal hemodynamic profile on the right. Enrique Wasserman MD on September 15, 2017 at 22:38 Board Certified Radiologist. This report was verified electronically.
[2017-09-15] MEDS: AZITHROMYCIN INJ 500 MG in SODIUM CHLOR 0.9% 250 ML INJ 250 ML IV SCH (22:48)
[2017-09-15] MEDS: cefTRIAXone INJ 1,000 MG in SODIUM CHLORIDE 0.9% INJ 100 ML IV SCH (22:48)
[2017-09-15] MEDS: MIRTAZAPINE 15 MG TAB PO SCH (22:49)
[2017-09-16] VITALS (9 sets, daily range): BP systolic 106–130; BP diastolic 52–57; PULSE 64–98; RESP 16–20; TEMP 96.2–98.5; O2SAT 94–98
[2017-09-16] MEDS ORDERED: LACTATED RINGER'S 1000 ML IV PRN (05:15)
[2017-09-16] MEDS ORDERED: CHLORHEXIDINE GLUCONATE 2 % 1 PACK (2 CLOTHS) TOPICAL PRN (05:15)
[2017-09-16] MEDS ORDERED: SODIUM CHLORID 0.9% 500 ML IV PRN (05:15)
[2017-09-16] MEDS ORDERED: POVIDONE IODINE 5% (ANTISEPSIS KIT) 4 APPLICATIONS EACH NARE PRN (05:15)
[2017-09-16 08:40] LABS: HEMATOCRIT 26.2 % (35.0-46.0); MEAN CORPUSCULAR HEMOGLOBIN 31.6 PG (27.0-34.0); MEAN CORPUSCULAR HGB CONC 33.6 % (32.0-36.0); PLATELET COUNT 311 TH/MM3 (150-450); RED BLOOD COUNT 2.79 MIL/MM3 (4.00-5.30); RED CELL DISTRIBUTION WIDTH 14.8 % (11.6-17.2); REVIEW FLAG FINAL; WHITE BLOOD COUNT 10.1 TH/MM3 (4.0-11.0)
[2017-09-16 08:57] LABS: BICARBONATE 28.7 MEQ/L (21.0-32.0)
[2017-09-16] MEDS: SODIUM CHLORIDE 0.9% FLUSH 10 ML FLUSH IV FLUSH SCH ×2 (09:00→21:00)
[2017-09-16] MEDS: DOCUSATE SODIUM 50 MG/SENNA 8.6 MG TAB PO SCH ×2 (09:00→20:24)
[2017-09-16 09:02] LABS: POTASSIUM 2.9 MEQ/L (3.5-5.1)
--- NOTE | 2017-09-16 09:07 | HHI.PR ---
Subjective Remarks telemetry- a fib rate controlled awake and alert, frail looking denies any pain feels weak-- agrees to sit up on chair "I would love that" Objective Vitals Vital Signs Date Time Temp Pulse Resp B/P (MAP) Pulse Ox O2 Delivery O2 Flow Rate FiO2 09/16/17 04:00 97.3 70 20 130/57 (81) 95 09/16/17 00:00 98.5 75 20 120/54 (76) 94 09/15/17 20:00 98.4 71 20 132/56 (81) 94 09/15/17 16:00 98.7 68 17 97/50 (66) 96 09/15/17 12:00 96.4 74 16 110/52 (71) 96 09/15/17 10:42 61 I/O 09/15/17 09/15/17 09/15/17 09/16/17 09/16/17 09/16/17 07:00 15:00 23:00 07:00 15:00 23:00 Intake Total 740 ml 240 ml 480 ml Balance 740 ml 240 ml 480 ml Intake Oral 240 ml 240 ml 480 ml IV Total 500 ml # Voids 4 3 3 # Bowel Movements 0 1 1 Result Diagram: 09/16/17 0757 09/15/17 0443 Imaging Last Impressions Carotid Artery Ultrasound 09/15/17 0000 Signed Impressions: Service Date/Time: Friday, September 15, 2017 18:57 - CONCLUSION: 1. Moderate plaque formation in the left carotid bulb with hemodynamic profile characteristic of 50-69%% stenosis. 2. Normal hemodynamic profile on the right. Enrique Wasserman MD Chest X-Ray 09/14/17 2019 Signed Impressions: Service Date/Time: Thursday, September 14, 2017 20:37 - CONCLUSION: Diffuse increased interstitial markings likely related to edema. There is some accompanying atelectasis or consolidation at the lung bases and lateral right upper lung. Jourdan Betancourt MD Objective Remarks awake and alert, no acute distress oriented to person, and place old ecchymoses left side of face + bruit left carotid anicteric decrease breath sounds, regular rhythm + 3/6 systolic murmur left sternal border abdomen soft, nontender extremities - LUE- soft cast in place LE no edema, moves both lower extremities spontaneously A/P Problem List: (1) PNA (pneumonia) ICD Code: J18.9 - Pneumonia, unspecified organism (2) COPD (chronic obstructive pulmonary disease) ICD Code: J44.9 - Chronic obstructive pulmonary disease, unspecified (3) CHF (congestive heart failure) ICD Code: I50.9 - Heart failure, unspecified (4) Hypoxia ICD Code: R09.02 - Hypoxemia (5) JH (acute kidney injury) ICD Code: N17.9 - Acute kidney failure, unspecified (6) A-fib ICD Code: I48.91 - Unspecified atrial fibrillation (7) Wrist fracture ICD Code: S62.109A - Fracture of unspecified carpal bone, unspecified wrist, initial encounter for closed fracture Assessment and Plan 82 years old likely with underlying dementia- she only recalls Dr. Gabriel as her PCP Sepsis-secondary to PNA: and UTI Leukocytosis improved- down to 9 from 20 CXR w/ likely consolidation at bases/lateral right upper lung, on Rocephin/Zithro . continue w/ IV Abx. ff final C and s. ID consult for recommendation repeat blood cultures UTI- gram negative rods- on IV antibiotics. ff sensitivity Acute respiratory failure- continue on supplement CHF: Echo 01/20/14 w/ EF 50-55%, on diuretics at home for recurrent edema, CXR w / diffuse increased interstitial marking likely due to edema. History of A fib S/P ablation- RVR on admission now rate controlled S/P telemetry with 2 seconds pause- brief asymptomatic- 09/15 Repeat Echo to eval systolic/diastolic function. Lasix 20mg daily, monitor I /O. continue on Lasix 20 mg. On Xarelto- held for possible surgery for the wrist Amiodarone - Discontinued - monitor Dr. Leon ff along with us- d/w him Hypokalemia- replace IV and po. check Mg level Hypoxia: Multifactorial-COPD/PNA/CHF. O2 sat 89% on RA, currently 95% on 2L NC. Monitor O2 JH: r/o underlying CKI will try to get more recent labs from clinic for comparison Creatinine 1.54, previously 0.90 on 03/07/16. - in EMR Gentle IVF, caution w/ pulmonary edema. Repeat labs this am Anemia- drop in H- received 1L IV- recheck in am. no external signs of bleeding Wrist Fx: s/p mechanical fall 09/03/17, seen in ER at that time, Wrist X-ray w/ distal radius fx, referred to Dr. Land, plan is for surgical intervention. Analgesics/ antiemetics as needed. will d/w Surgery regarding + blood cultures-- get ID consult Left carotid stenosis- on Xarelto. consider Vascular surgery consult DVT Prophylaxis: On Xarelto.- held for possible surgery. transition to [facility] for surgery Social work for d/c planning as needed. Bree Terrell MD Sep 16, 2017 09:07
[2017-09-16] MEDS ORDERED: POTASSIUM CHLOR 20 MEQ PREMIX 100 ML IV SCH (10:00)
[2017-09-16] MEDS: BUDESONIDE-FORMOTEROL 160/4.5 MCG INHALER INH SCH ×2 (10:18→20:24)
[2017-09-16] MEDS: FUROSEMIDE 20 MG TAB PO SCH (10:18)
[2017-09-16] MEDS: CYANOCOBALAMIN 1,000 MCG TAB PO SCH (10:18)
[2017-09-16] MEDS: FOLIC ACID 1 MG TAB PO SCH (10:18)
[2017-09-16] MEDS ORDERED: POTASSIUM CHLOR 10 MEQ PREMIX 100 ML IV SCH (10:30)
[2017-09-16] MEDS: POTASSIUM CHLOR 10 MEQ PREMIX 100 ML IV SCH ×3 (10:37→16:16)
--- NOTE | 2017-09-16 11:31 | MB ---
cc: KEYSHA AMIN AHMAD M.D. DATE OF CONSULTATION: 09/16/2017 REASON FOR CONSULTATION: Atrial fibrillation on Xarelto, wrist fracture, needing surgery, pneumonia, congestive heart failure. HISTORY OF PRESENT ILLNESS This is an 82 year-old female who is well-known to me, she had past medical history of chronic atrial fibrillation on Xarelto, hypertension, history of congestive heart failure, secondary to diastolic dysfunction. The patient presented after she had a fall, sustained a fracture of her left wrist. She was also found to have pneumonia and was on antibiotics. She also has history of congestive heart failure which seems to exacerbate before this admission, she is currently on Lasix. The patient denies chest pain, she also denies <<1:25>> lower extremity edema or recent weight gain. I was asked to see the patient to see if we could stop the Xarelto prior to her surgery. ALLERGIES Unknown. SOCIAL HISTORY: Nonsmoker, nondrinker. FAMILY HISTORY: Noncontributory. REVIEW OF SYSTEMS HEENT: No complaints of lightheadedness or dizziness. CARDIOVASCULAR: Episode of atrial fibrillation on coumadin and congestive heart failure secondary to diagnostic dysfunction. PULMONARY: History chronic obstructive pulmonary disease. GASTROINTESTINAL: No history of GERD or GI bleed. GENITOURINARY: History of history of polyuria, dysuria or renal failure. The remainder of her review of systems is within normal limits. PHYSICAL EXAMINATION: VITAL SIGNS: Blood pressure 100/70, with a heart rate of 60, respiratory rate 12. The patient is afebrile. NECK: Supple with no jugular venous distention. CHEST: Crackles bilateral bases. HEART: S1, normal in intensity. Irregularly irregular rate and rhythm. No S3 or S4 appreciated. No murmur heard. ABDOMEN: Benign. EXTREMITIES: No edema, clubbing or cyanosis. IMPRESSION 1. Pneumonia. 2. Positive blood culture was no fracture secondary to pneumonia. 3. History of chronic atrial fibrillation on Xarelto. 4. History of congestive heart failure secondary to diagnostic dysfunction. 5. Wrist fracture. 6. Hypertension. RECOMMENDATIONS I have discussed the case with Dr. Espinoza. We agreed to stop the Xarelto for now and amiodarone. Since the patient has bradycardia, with a heart rate in the 40s this morning. The patient is clear from a cardiovascular point to have wrist surgery when consultated. We will keep her off Xarelto for the reason. I explained the risks of having a stroke in the meantime the patient is agreeable. I will continue to follow and provide further recommendations accordingly. Ivone Leon MD / /8:01 AM /9:56 AM
--- NOTE | 2017-09-16 17:45 | ECHRPT ---
Indication: Heart Failure CONCLUSIONS The left ventricular systolic function is low normal with an estimated ejection fraction in the rang e of 50- 55%. Trace mitral valve regurgitation. There is mild to moderate tricuspid valve regurgitation. A moderate left sided pleural effusion is noted. BP: 113 / 60 HR: 71 Rhythm: MEASUREMENTS (Male / Female) Normal Values Technical Quality:Good 2D ECHO LV Diastolic Diameter PLAX 4.8 cm 4.2 - 5.9 / 3.9 - 5.3 cm LV Systolic Diameter PLAX 3.5 cm IVS Diastolic Thickness 0.7 cm 0.6 - 1.0 / 0.6 - 0.9 cm LVPW Diastolic Thickness 0.7 cm 0.6 - 1.0 / 0.6 - 0.9 cm LV Relative Wall Thickness 0.3 RV Internal Dim ED PLAX 2.1 cm LA Systolic Diameter LX 5.0 cm 3.0 - 4.0 / 2.7 - 3.8 cm M-MODE Aortic Root Diameter MM 2.9 cm AV Cusp Separation MM 1.9 cm DOPPLER AV Peak Velocity 187.0 cm/s AV Peak Gradient 14.0 mmHg LVOT Peak Velocity 118.0 cm/s LVOT Peak Gradient 5.6 mmHg Mitral E Point Velocity 88.8 cm/s Mitral A Point Velocity 97.2 cm/s Mitral E to A Ratio 0.9 TR Peak Velocity 337.0 cm/s TR Peak Gradient 45.4 mmHg Right Atrial Pressure 10.0 mmHg Pulmonary Artery Systolic Pressu 55.4 mmHg Right Ventricular Systolic Press 55.4 mmHg FINDINGS LEFT VENTRICLE Normal left ventricular size. Wall thickness is normal. The left ventricular systolic function is low normal with an estimated ejection fraction in the rang e of 50- 55%. No regional wall motion abnormalities are present. RIGHT VENTRICLE Normal right ventricular size and systolic function. LEFT ATRIUM The left atrial size is upper limits of normal. RIGHT ATRIUM The right atrial size is normal. ATRIAL SEPTUM Normal atrial septal thickness. AORTA The aortic root and proximal ascending aorta are normal in size on limited imaging. MITRAL VALVE Structurally normal mitral valve. No mitral valve stenosis. Trace mitral valve regurgitation. AORTIC VALVE No aortic valve regurgitation. No aortic valve stenosis. TRICUSPID VALVE Structurally normal tricuspid valve. There is mild to moderate tricuspid valve regurgitation. There is estimated moderate pulmonary hypertension present (55 mmHg). PULMONARY VALVE No pulmonary valve regurgitation or stenosis. VESSELS The inferior vena cava is normal in size. PERICARDIUM A moderate left sided pleural effusion is noted. Gaetano Martinez DO (Electronically Signed) Final Date:16 September 2017 17:44
[2017-09-16] MEDS: MAGNESIUM SULFATE 1 GM PREMIX 100 ML IV SCH ×2 (19:23→20:28)
[2017-09-16] MEDS: MIRTAZAPINE 15 MG TAB PO SCH (20:24)
[2017-09-16] MEDS: LATANOPROST 0.005% OPHT SOLN 2.5 ML BTL EACH EYE SCH ×2 (21:30→22:07)
[2017-09-16] MEDS: cefTRIAXone INJ 1,000 MG in SODIUM CHLORIDE 0.9% INJ 100 ML IV SCH (21:31)
[2017-09-16] MEDS: AZITHROMYCIN INJ 500 MG in SODIUM CHLOR 0.9% 250 ML INJ 250 ML IV SCH (22:07)
[2017-09-17] VITALS (13 sets, daily range): BP systolic 113–138; BP diastolic 45–59; PULSE 54–73; RESP 16–20; TEMP 97–98.4; O2SAT 95–96
--- NOTE | 2017-09-17 07:18 | PD.ORT.PN ---
Subjective Subjective Remarks Patient resting comfortably this morning. No acute events. Objective Vitals Vital Signs Date Time Temp Pulse Resp B/P (MAP) Pulse Ox O2 Delivery O2 Flow Rate FiO2 09/17/17 06:41 66 09/17/17 04:09 97.9 62 16 113/56 (75) 96 09/17/17 04:00 62 09/17/17 00:12 97.6 70 16 126/59 (81) 96 09/16/17 23:00 64 09/16/17 20:21 98.0 73 16 113/55 (74) 96 09/16/17 20:00 79 09/16/17 16:00 96.2 70 16 117/52 (73) 09/16/17 12:00 97.0 74 18 115/52 (73) 98 09/16/17 10:10 98 09/16/17 08:00 96.3 69 16 106/52 (70) 94 I/O 09/16/17 09/16/17 09/16/17 09/17/17 09/17/17 09/17/17 07:00 15:00 23:00 07:00 15:00 23:00 Intake Total 480 ml 420 ml 370 ml Balance 480 ml 420 ml 370 ml Intake Oral 480 ml 120 ml 120 ml IV Total 300 ml 250 ml # Voids 3 4 2 4 # Bowel Movements 1 0 0 0 Result Diagram: 09/16/17 0757 09/16/17 0757 Objective Remarks Drowsy but arousable. LUE: splint in place. Neuro intact over fingers, BCR Assessment & Plan Assessment and Plan Patient is an 82-year-old female who presented to the hospital with shortness of breath and difficulty breathing, found to have a UTI and Pneumonia. In addition, patient with +blood cultures yesterday. Labs improving today Will continue to plan for ORIF left hopefully tomorrow should she continue to have improvement in labs and cleared by medicine and cardiology NPO at midnight Adeola Land MD Sep 17, 2017 07:18
[2017-09-17 08:55] LABS: BICARBONATE 27.2 MEQ/L (21.0-32.0)
[2017-09-17] MEDS: BUDESONIDE-FORMOTEROL 160/4.5 MCG INHALER INH SCH ×2 (09:00→21:03)
[2017-09-17] MEDS: DOCUSATE SODIUM 50 MG/SENNA 8.6 MG TAB PO SCH ×2 (09:00→21:03)
[2017-09-17] MEDS: FUROSEMIDE 20 MG TAB PO SCH (10:43)
[2017-09-17] MEDS: SODIUM CHLORIDE 0.9% FLUSH 10 ML FLUSH IV FLUSH SCH ×2 (10:43→21:00)
[2017-09-17] MEDS: FOLIC ACID 1 MG TAB PO SCH (10:43)
[2017-09-17] MEDS: CYANOCOBALAMIN 1,000 MCG TAB PO SCH (10:43)
--- NOTE | 2017-09-17 11:29 | HHI.IDPN ---
Note Infectious Disease Note ID follow up. I saw this patient and dictated consult yesterday but the consult dictation was not recorded completely because of the phone being cut off unbeknown to me. Consult has been dictated again. Home Gandhi MD Sep 17, 2017 11:29
--- NOTE | 2017-09-17 11:37 | HHI.IDPN ---
Subjective Subjective Remarks ID follow up. I saw this patient and dictated consult yesterday but the consult dictation was not recorded completely because of the phone being cut off unbeknown to me. Patient has no complaints. Looks lethargic. Afebrile. No sputum production. No chills. Impression: Pneumonia likely secondary to aspiration. Patient has nausea and vomiting before admission per my discussion with the rn long term care at her [facility]. The positive Blood culture is most likely contamination and i do not recommend repeating it. Abnormal urinalysis - She was being treated with Macrobid at the [facility] before admission and the urine culture here has <15,000 colonies of klebsiella is resistant to Macrobid. Leukocytosis has resolved. RECOMMEND : Continue the Ceftriaxone and Zithromax and repeat the CXR on 09/18. I think she can be switched to PO antibiotic if the CXR is no worse than previous. Okay to proceed with the orthopedic surgery for the left arm fracture from ID standpoint. Antibiotics Ceftriaxone. Zithromax. Allergies: Coded Allergies: codeine (Unverified Allergy, Severe, Itching, 09/02/17) Objective . Vital Signs Date Time Temp Pulse Resp B/P (MAP) Pulse Ox O2 Delivery O2 Flow Rate FiO2 09/17/17 09:46 63 09/17/17 07:40 97.1 64 18 120/58 (78) 96 09/17/17 06:41 66 09/17/17 04:09 97.9 62 16 113/56 (75) 96 09/17/17 04:00 62 09/17/17 00:12 97.6 70 16 126/59 (81) 96 09/16/17 23:00 64 09/16/17 20:21 98.0 73 16 113/55 (74) 96 09/16/17 20:00 79 09/16/17 16:00 96.2 70 16 117/52 (73) 09/16/17 12:00 97.0 74 18 115/52 (73) 98 . Laboratory Tests Test 09/16/17 07:57 White Blood Count 10.1 TH/MM3 Red Blood Count 2.79 MIL/MM3 Hemoglobin 8.8 GM/DL Hematocrit 26.2 % Mean Corpuscular Volume 94.0 FL Mean Corpuscular Hemoglobin 31.6 PG Mean Corpuscular Hemoglobin Concent 33.6 % Red Cell Distribution Width 14.8 % Platelet Count 311 TH/MM3 Mean Platelet Volume 7.3 FL Laboratory Tests Test 09/16/17 07:57 09/17/17 07:20 Blood Urea Nitrogen 26 MG/DL 19 MG/DL Creatinine 1.12 MG/DL 0.86 MG/DL Random Glucose 73 MG/DL 71 MG/DL Calcium Level 7.7 MG/DL 7.7 MG/DL Sodium Level 146 MEQ/L 142 MEQ/L Potassium Level 2.9 MEQ/L 3.0 MEQ/L Chloride Level 108 MEQ/L 106 MEQ/L Carbon Dioxide Level 28.7 MEQ/L 27.2 MEQ/L Anion Gap 9 MEQ/L 9 MEQ/L Estimat Glomerular Filtration Rate 46 ML/MIN 63 ML/MIN Magnesium Level 1.6 MG/DL 2.0 MG/DL Microbiology Date/Time Source Procedure Growth Status 09/14/17 20:15 Blood Peripheral Aerobic Blood Culture - Preliminary NO GROWTH IN 3 DAYS Resulted 09/14/17 20:15 Blood Peripheral Anaerobic Blood Culture - Preliminary NO GROWTH IN 3 DAYS Resulted 09/14/17 20:00 Blood Peripheral Aerobic Blood Culture - Preliminary Staph Sp Coagulase Negative Resulted 09/14/17 20:00 Blood Peripheral Anaerobic Blood Culture - Preliminary NO GROWTH IN 3 DAYS Resulted 09/14/17 20:30 Nasal Aspirate Influenza Types A,B Antigen (SAMANTHA) - Final NEGATIVE FOR FLU A AND B ANTIGEN.... Complete 09/14/17 21:30 Urine Catheterized Urine Urine Culture - Final Klebsiella Pneumoniae Complete Imaging Last Impressions Carotid Artery Ultrasound 09/15/17 0000 Signed Impressions: Service Date/Time: Friday, September 15, 2017 18:57 - CONCLUSION: 1. Moderate plaque formation in the left carotid bulb with hemodynamic profile characteristic of 50-69%% stenosis. 2. Normal hemodynamic profile on the right. Enrique Wasserman MD Chest X-Ray 09/14/17 2019 Signed Impressions: Service Date/Time: Thursday, September 14, 2017 20:37 - CONCLUSION: Diffuse increased interstitial markings likely related to edema. There is some accompanying atelectasis or consolidation at the lung bases and lateral right upper lung. Jourdan Betancourt MD Physical Exam GENERAL: Frail, cachectic female in no acute distress. HEAD: Normocephalic. EYES: No scleral icterus. No injection or drainage. NECK: Supple, trachea midline. No JVD or lymphadenopathy. CARDIOVASCULAR: Irregular rate and rhythm without murmurs, gallops, or rubs. RESPIRATORY: decreased breath sounds and slight rhonchi at the left base. No accessory muscle use. GASTROINTESTINAL: Abdomen soft, non-tender, nondistended. EXTREMITIES: No cyanosis, or edema. NEUROLOGICAL: Awake, alert, and oriented x 2. Non-focal. SKIN: Warm and dry. Assessment & Plan Remarks Impression: Pneumonia likely secondary to aspiration. Patient has nausea and vomiting before admission per my discussion with the rn long term care at her [facility]. Positive Blood culture is most likely contamination and I do not recommend repeating it. Abnormal urinalysis - She was being treated with Macrobid at the [facility] before admission and the urine culture here has <15,000 colonies of klebsiella is resistant to Macrobid. Leukocytosis has resolved. RECOMMEND : Treatment for pneumonia. Continue the Ceftriaxone and Zithromax and repeat the CXR on 09/18. I think she can be switched to PO antibiotic if the CXR is no worse than previous. Okay to proceed with the orthopedic surgery for the left arm fracture from ID standpoint. Home Gandhi MD Sep 17, 2017 11:36
--- NOTE | 2017-09-17 11:37 | MB ---
cc: KEYSHA TERRELL,TYRONE Hernandez MD DATE OF CONSULTATION 09/16/[address] Terrell. REASON FOR CONSULTATION Gram-positive sepsis. Leukocytosis. Pneumonia. UTI. Antibiotic recommendation. HISTORY OF PRESENT ILLNESS This is an 82-year-old white female who was admitted to the hospital on 09/14/2017 because of weakness. The patient was brought from an assisted living facility. Prior to being brought to the emergency department on 09/14/2017 the patient had a fall on 09/02/2017 and she fractured her left ulna. She underwent splint application on that day and was returned to the assisted living facility. She subsequently was transferred to [facility] and was given hydration because she was felt to be dehydrated and was sent back again to the assisted living facility. She reportedly was on Macrobid for presumed urinary infection. She was given a seven-day course but she developed nausea and vomiting and she did not complete the seven-day course. She was evaluated this time in the emergency department on 09/14/2017 because of weakness and she also was noted to have nausea. In the emergency department she had a normal temperature, elevated heart rate, elevated white blood cell count of 18.9 and her creatinine was 1.54 with BUN of 37 and estimated GFR of 32. Work-up included urinalysis which showed 10 white cells. Urine culture was performed and showed Klebsiella pneumoniae which is resistant to Macrobid. The colony count was less than 15,000 colonies. Blood cultures on 09/14/2017 showed staph coag negative in one bottle of four. Chest x-ray on 09/14/2017 showed diffuse increased interstitial markings likely related to edema. There was some accompanying atelectasis or consolidation at the lung bases and the lateral right upper lung. The patient is lying in bed. She appears comfortable. She has no respiratory distress. She denies cough or sputum production. She states that she has difficulty holding her urine. She denies back pain. She denies chills. She states that she has had the "runs" over the past few days meaning having loose stools. She is receiving oxygen via nasal cannula and has no difficulty breathing. Her white blood cell count has decreased to normal. It is 10.1 today. PAST MEDICAL HISTORY 1. Hypertension. 2. Atrial fibrillation. 3. Anxiety. 4. Depression. 5. Bilateral hip replacement. 6. Tonsillectomy. ALLERGIES CODEINE. MEDICATIONS 1. Ceftriaxone. 2. Azithromycin. 3. Latanoprost eyedrops. 4. Symbicort. 5. Vitamin B12. 6. Norvasc. 7. Furosemide. 8. Folate. SOCIAL HISTORY No tobacco, no alcohol. No illicit drugs. FAMILY HISTORY Noncontributory. REVIEW OF SYSTEMS Nausea and vomiting and also left arm pain. Otherwise, negative on 10-point review. PHYSICAL EXAMINATION GENERAL: This is a slender frail-appearing female who is in no acute distress. She is alert and awake. VITAL SIGNS: Temperature 97.0, BP 115/52, respirations 18, heart rate 74. HEENT: Head is atraumatic. Extraocular movements grossly intact, pupils reactive to light. No icterus. No conjunctival erythema. Oropharynx moist mucosa. No visible lesions. NECK: Supple without adenopathy. LUNGS: Decreased breath sounds at the bases with slight rhonchi. HEART: Irregular rate and rhythm. No murmurs, rubs or gallops. ABDOMEN: Bowel sounds present, soft, nontender. RECTAL: Not performed. EXTREMITIES: No clubbing, cyanosis or edema. The patient has a dressing at the left forearm. SKIN: No diffuse rash. The patient has chronic brown ecchymotic changes at the tibias. PSYCHE: The patient is calm and cooperative. NEUROLOGIC: No gross focal findings. LABORATORY DATA WBC 10.1, platelets 311, hemoglobin 8.8, creatinine 0.86, BUN 19, sodium 142. LFTs normal. IMAGING STUDIES Chest x-ray on 09/14 showed diffuse interstitial markings and some accompanying atelectasis or consolidation at the lung bases and the lateral right upper lung. IMPRESSION 1. Positive blood culture with 1 of 4 bottles showing staph coagulase negative. This is very likely contamination. 2. Positive urine culture with Klebsiella pneumoniae. However, the colony count is 10-15,000 colonies. The patient however, was being treated with Macrobid but the organism is resistant to Macrobid and therefore, I would expect a higher colony count if this bacteria in the urine is significant. 3. Pneumonia based on chest x-ray findings and patient with prior elevated white blood cell count. She is currently not coughing up sputum but a chest x-ray is significant. She appears to have responded to antibiotics that has been given. 4. Left arm fracture. 5. Leukocytosis, improved and white blood cell count now down to normal. RECOMMENDATIONS 1. Continue the ceftriaxone at least until after she has surgery for the left arm. 2. Continue Zithromax. 3. Repeat the chest x-ray on 09/18 and if it is improved antibiotics can be tapered or changed to oral antibiotics. I think the patient should be stable for the orthopedic procedure that is planned for her left upper extremity fracture. Thank you for this consultation. Tyrone Gandhi MD FD/ANGELA /2:32 PM /11:33 AM
--- NOTE | 2017-09-17 12:51 | HHI.PR ---
Subjective Remarks awake and alert denies any pain "no appetite" no nausea or vomiting denies any cough , fever or chills Objective Vitals Vital Signs Date Time Temp Pulse Resp B/P (MAP) Pulse Ox O2 Delivery O2 Flow Rate FiO2 09/17/17 12:20 65 09/17/17 11:47 97.6 62 18 121/59 (79) 95 09/17/17 09:46 63 09/17/17 07:40 97.1 64 18 120/58 (78) 96 09/17/17 06:41 66 09/17/17 04:09 97.9 62 16 113/56 (75) 96 09/17/17 04:00 62 09/17/17 00:12 97.6 70 16 126/59 (81) 96 09/16/17 23:00 64 09/16/17 20:21 98.0 73 16 113/55 (74) 96 09/16/17 20:00 79 09/16/17 16:00 96.2 70 16 117/52 (73) I/O 09/16/17 09/16/17 09/16/17 09/17/17 09/17/17 09/17/17 07:00 15:00 23:00 07:00 15:00 23:00 Intake Total 480 ml 420 ml 370 ml Balance 480 ml 420 ml 370 ml Intake Oral 480 ml 120 ml 120 ml IV Total 300 ml 250 ml # Voids 3 4 2 4 # Bowel Movements 1 0 0 0 Result Diagram: 09/16/17 0757 09/17/17 0720 Imaging Last Impressions Carotid Artery Ultrasound 09/15/17 0000 Signed Impressions: Service Date/Time: Friday, September 15, 2017 18:57 - CONCLUSION: 1. Moderate plaque formation in the left carotid bulb with hemodynamic profile characteristic of 50-69%% stenosis. 2. Normal hemodynamic profile on the right. Enrique Wasserman MD Chest X-Ray 09/14/17 2019 Signed Impressions: Service Date/Time: Thursday, September 14, 2017 20:37 - CONCLUSION: Diffuse increased interstitial markings likely related to edema. There is some accompanying atelectasis or consolidation at the lung bases and lateral right upper lung. Jourdan Betancourt MD Objective Remarks awake and alert, no acute distress oriented to person, and place old ecchymoses left side of face + bruit left carotid anicteric decrease breath sounds, regular rhythm + 3/6 systolic murmur left sternal border abdomen soft, nontender extremities - LUE- soft cast in place LE no edema, moves both lower extremities spontaneously, no calf tenderness A/P Problem List: (1) PNA (pneumonia) ICD Code: J18.9 - Pneumonia, unspecified organism (2) COPD (chronic obstructive pulmonary disease) ICD Code: J44.9 - Chronic obstructive pulmonary disease, unspecified (3) CHF (congestive heart failure) ICD Code: I50.9 - Heart failure, unspecified (4) Hypoxia ICD Code: R09.02 - Hypoxemia (5) JH (acute kidney injury) ICD Code: N17.9 - Acute kidney failure, unspecified (6) A-fib ICD Code: I48.91 - Unspecified atrial fibrillation (7) Wrist fracture ICD Code: S62.109A - Fracture of unspecified carpal bone, unspecified wrist, initial encounter for closed fracture Assessment and Plan 82 years old likely with underlying dementia- she only recalls Dr. Gabriel as her PCP Sepsis-secondary to PNA: Leukocytosis improved- down to 9 CXR w/ likely consolidation at bases/lateral right upper lung, on Rocephin/Zithro . continue w/ IV Abx. repeat CXR 09/18 Pyuria - Klebsiella -- no significant colony count Acute respiratory failure- continue on supplement CHF: Echo 01/20/14 w/ EF 50-55%, on diuretics at home for recurrent edema, CXR w / diffuse increased interstitial marking likely due to edema. History of A fib S/P ablation- RVR on admission now rate controlled S/P telemetry with 2 seconds pause- brief asymptomatic- 09/15 Lasix 20mg daily, monitor I/O. continue on Lasix 20 mg. On Xarelto- held for surgery for the wrist Amiodarone - Discontinued - monitor Dr. Caroyln west along with us- d/w him 09/16 Hypokalemia- persistent replace IV and po start KCL 10 meq po bid. Mg improved- 2.0 recheck in am Hypoxia: Multifactorial-COPD/PNA/CHF. O2 sat 89% on RA, currently 95% on 2L NC. Monitor O2 JH:- resolved r/o underlying CKI creatinine improved Gentle IVF Anemia- drop in H- received 1L IV- recheck in am. no external signs of bleeding. H and H stable Wrist Fx: s/p mechanical fall 09/03/17, seen in ER at that time, Wrist X-ray w/ distal radius fx, referred to Dr. Land, plan is for surgical intervention. Analgesics/ antiemetics as needed. possibly tomorrow Left carotid stenosis. Vascular surgery consult Out of bed to chair for all meals- with assistance DVT Prophylaxis: On Xarelto.- held for possible surgery. transition to [facility] for surgery Social work for d/c planning as needed. Bree Terrell MD Sep 17, 2017 12:51
[2017-09-17] MEDS ORDERED: POTASSIUM BICARBONATE 25 MEQ EFFERVESCENT TAB PO ONE (13:00)
[2017-09-17] MEDS ORDERED: POTASSIUM CHLOR 20 MEQ PREMIX 100 ML IV ONE (13:00)
[2017-09-17] MEDS: POTASSIUM CHLOR 10 MEQ PREMIX 100 ML IV SCH ×2 (14:32→19:58)
--- NOTE | 2017-09-17 19:54 | PD.VS.CON ---
History of Present Illness Chief Complaint: carotid stenosis Consult Requested by: medical service History of Present Illness 82 yo female adm with CHF, pneumonia, UTI and L UE fracture who was incidentally found to have L carotid stenosis on duplex. Pt denies any antecedent stroke, TIA, or AF symptoms. Past/Family/Social History Past Medical History HTN A-fib CHF Pneumonia Past Surgical History tonsillectomy B hip replacement Social History lives in assisted living Family History NC Home Medications Reported Medications Mirtazapine (Mirtazapine) 7.5 Mg Tab, 7.5 MG PO HS for Depression Control, #30 TAB 0 Refills 09/03/17 Latanoprost Opth Drops (Latanoprost Opth Drops) 0.005% Drops, 1 DROP EACH EYE HS for Glaucoma, #2.5 ML 0 Refills Refrigerate until opened. 09/03/17 Potassium Chloride ER (Klor-Con 10) 10 Meq Tab, 10 MEQ PO DAILY for Electrolyte Replacement, #30 TAB 0 Refills 09/03/17 Furosemide (Furosemide) 20 Mg Tab, 20 MG PO DAILY, #30 TAB 0 Refills 09/03/17 Folic Acid (Folic Acid) 0.8 Mg Tab, 1 MG PO DAILY for Nutritional Supplement, TAB 0 Refills 09/03/17 Amlodipine (Amlodipine) 10 Mg Tab, 10 MG PO DAILY for Blood Pressure Management , #30 TAB 0 Refills 09/03/17 Rivaroxaban (Xarelto) 20 Mg Tab, 20 MG PO DAILY for Blood Clot Prevention, TAB 0 Refills 09/03/17 Cyanocobalamin (Vitamin B-12) 1,000 Mcg Tab, 1000 MCG PO DAILY for Nutritional Supplement, #1 BOTTLE 0 Refills 09/03/17 Losartan (Losartan) 25 Mg Tab, 25 MG PO DAILY for Blood Pressure Management, # 30 TAB 0 Refills 09/21/16 Hydrocodone-Acetaminophen (Hydrocodone-Acetaminophen) 5-325 mg Tab, 1 TAB PO Q6H Y for PAIN, TAB 0 Refills 09/21/16 Amiodarone (Amiodarone) 200 Mg Tab, 200 MG PO DAILY for Regulate Heart Beat, # 30 TAB 0 Refills 09/21/16 Coded Allergies: codeine (Unverified Allergy, Severe, Itching, 09/02/17) Review of Systems Eyes: DENIES: Vision loss Respiratory: COMPLAINS OF: Shortness of breath Physical Exam Vitals/I&O Date Time Temp Pulse Resp B/P (MAP) Pulse Ox O2 Delivery O2 Flow Rate FiO2 09/17/17 18:08 58 09/17/17 16:48 54 09/17/17 16:00 97.0 57 18 113/45 (67) 95 09/17/17 15:09 69 09/17/17 12:20 65 09/17/17 11:47 97.6 62 18 121/59 (79) 95 09/17/17 09:46 63 09/17/17 07:40 97.1 64 18 120/58 (78) 96 09/17/17 06:41 66 09/17/17 04:09 97.9 62 16 113/56 (75) 96 09/17/17 04:00 62 09/17/17 00:12 97.6 70 16 126/59 (81) 96 09/16/17 23:00 64 09/16/17 20:21 98.0 73 16 113/55 (74) 96 09/16/17 20:00 79 09/17/17 09/17/17 09/17/17 07:00 15:00 23:00 Intake Total 370 ml 300 ml Balance 370 ml 300 ml Neuro: elderly female, no distress, answers questions appropriately HEENT: wearing glasses, anicteric sclera Neck: no JVD Heart: irreg rate Lungs: diminished Extremities: BONILLA except L UE well because of dressing Laboratory Tests Test 09/17/17 07:20 Blood Urea Nitrogen 19 Creatinine 0.86 Random Glucose 71 Calcium Level 7.7 Magnesium Level 2.0 Sodium Level 142 Potassium Level 3.0 Chloride Level 106 Carbon Dioxide Level 27.2 Anion Gap 9 Estimat Glomerular Filtration Rate 63 Date/Time Source Procedure Growth Status 09/14/17 20:15 Blood Peripheral Aerobic Blood Culture - Preliminary NO GROWTH IN 3 DAYS Resulted 09/14/17 20:15 Blood Peripheral Anaerobic Blood Culture - Preliminary NO GROWTH IN 3 DAYS Resulted 09/14/17 20:30 Nasal Aspirate Influenza Types A,B Antigen (SAMANTHA) - Final NEGATIVE FOR FLU A AND B ANTIGEN.... Complete 09/14/17 21:30 Urine Catheterized Urine Urine Culture - Final Klebsiella Pneumoniae Complete Carotid duplex reviewed: 50-79% L ICA stenosis by velocity criteria Assessment and Plan Plan Asymptomatic mild carotid stenosis. Overall carotid based stroke rate is well less than 2% annually, and no surgical intervention needed likely ever. Best therapy is antiplatelet (ASA 81 if maintaining on anticoagulation) and statin. Please call with any questions. Jean Claude Carreno MD FACS RPVI medical assistant internal medicine [facility] - Heart and Vascular Surgery at [facility] [phone] Jean Claude Carreno MD Sep 17, 2017 19:54
[2017-09-17] MEDS: MIRTAZAPINE 15 MG TAB PO SCH (21:02)
[2017-09-17] MEDS: LATANOPROST 0.005% OPHT SOLN 2.5 ML BTL EACH EYE SCH (21:03)
[2017-09-17] MEDS: POTASSIUM CHLORIDE 10 MEQ CAP PO SCH (21:03)
[2017-09-17] MEDS: cefTRIAXone INJ 1,000 MG in SODIUM CHLORIDE 0.9% INJ 100 ML IV SCH (22:19)
[2017-09-17] MEDS: AZITHROMYCIN INJ 500 MG in SODIUM CHLOR 0.9% 250 ML INJ 250 ML IV SCH (23:07)
[2017-09-18] VITALS (11 sets, daily range): BP systolic 104–177; BP diastolic 50–64; PULSE 17–72; RESP 18–19; TEMP 95.8–99.4; O2SAT 95–98
[2017-09-18 05:10] LABS: BICARBONATE 33.8 MEQ/L (21.0-32.0); POTASSIUM 3.7 MEQ/L (3.5-5.1)
--- NOTE | 2017-09-18 08:20 | HHI.PR ---
Subjective Remarks pt denies chest pain and SOB Objective Vital Signs Date Time Temp Pulse Resp B/P (MAP) Pulse Ox O2 Delivery O2 Flow Rate FiO2 09/18/17 07:44 95.8 66 18 120/56 (77) 97 09/18/17 04:00 99.4 70 18 127/59 (81) 95 09/18/17 02:15 69 136/52 (80) 09/18/17 00:10 71 09/18/17 00:00 98.9 71 18 177/61 (99) 95 09/17/17 20:00 98.4 73 20 138/54 (82) 96 09/17/17 20:00 71 09/17/17 18:08 58 09/17/17 16:48 54 09/17/17 16:00 97.0 57 18 113/45 (67) 95 09/17/17 15:09 69 09/17/17 12:20 65 09/17/17 11:47 97.6 62 18 121/59 (79) 95 09/17/17 09:46 63 I/O 09/17/17 09/17/17 09/17/17 09/18/17 09/18/17 09/18/17 06:59 14:59 22:59 06:59 14:59 22:59 Intake Total 370 ml 300 ml 200 ml 350 ml Balance 370 ml 300 ml 200 ml 350 ml Intake Oral 120 ml 300 ml 0 ml IV Total 250 ml 200 ml 350 ml # Voids 4 3 3 # Bowel Movements 0 0 0 VSS CHEST: CTA HEART: S1,S1, AFIB ABD: ST, NT EXT: NO EDEMA Result Diagram: 09/16/17 0757 09/18/17 0417 Assessment and Plan Assessment and Plan Pt is stable cardiacwise. Xarelto is on hold. going for wrist surgery today. agree with management for PNA and UTI. I will follow Ivone Leon MD Sep 18, 2017 08:20
[2017-09-18] MEDS: DOCUSATE SODIUM 50 MG/SENNA 8.6 MG TAB PO SCH ×2 (09:00→21:00)
[2017-09-18] MEDS: CYANOCOBALAMIN 1,000 MCG TAB PO SCH (10:39)
[2017-09-18] MEDS: FOLIC ACID 1 MG TAB PO SCH (10:39)
[2017-09-18] MEDS: POTASSIUM CHLORIDE 10 MEQ CAP PO SCH ×2 (10:39→21:10)
[2017-09-18] MEDS: FUROSEMIDE 20 MG TAB PO SCH (10:40)
[2017-09-18] MEDS: SODIUM CHLORIDE 0.9% FLUSH 10 ML FLUSH IV FLUSH SCH ×3 (10:40→21:10)
[2017-09-18] MEDS: BUDESONIDE-FORMOTEROL 160/4.5 MCG INHALER INH SCH ×2 (10:41→21:11)
[2017-09-18] MEDS ORDERED: BUPIVACAINE HCL PF 0.25% 30 ML VIAL ONE (11:28)
[2017-09-18] MEDS ORDERED: GENTAMICIN SULFATE 80 MG/2 ML VIAL ONE (11:29)
[2017-09-18] MEDS ORDERED: PROPOFOL 200 MG/20 ML AMP IV ONE (12:00)
[2017-09-18] MEDS ORDERED: ONDANSETRON HCL 4 MG/2 ML VIAL IV ONE (12:00)
[2017-09-18] MEDS ORDERED: LIDOCAINE HCL 1% PF 5 ML SYRINGE OTHER ONE (12:00)
[2017-09-18] MEDS ORDERED: CHLORHEXIDINE GLUCONATE 2 % 1 PACK (2 CLOTHS) TOPICAL PRN (12:15)
[2017-09-18] MEDS ORDERED: POVIDONE IODINE 5% (ANTISEPSIS KIT) 4 APPLICATIONS EACH NARE PRN (12:15)
[2017-09-18] MEDS ORDERED: LACTATED RINGER'S 1000 ML IV PRN (12:15)
[2017-09-18] MEDS ORDERED: SODIUM CHLORID 0.9% 500 ML IV PRN (12:15)
--- NOTE | 2017-09-18 14:06 | HHI.PR ---
Subjective Remarks seen 4 pm at PACU complains of slight wrist pain no shortness of breath Objective Vitals Vital Signs Date Time Temp Pulse Resp B/P (MAP) Pulse Ox O2 Delivery O2 Flow Rate FiO2 09/18/17 11:50 96.6 70 18 114/56 (75) 97 09/18/17 10:09 70 09/18/17 07:44 95.8 66 18 120/56 (77) 97 09/18/17 04:00 99.4 70 18 127/59 (81) 95 09/18/17 02:15 69 136/52 (80) 09/18/17 00:10 71 09/18/17 00:00 98.9 71 18 177/61 (99) 95 09/17/17 20:00 98.4 73 20 138/54 (82) 96 09/17/17 20:00 71 09/17/17 18:08 58 09/17/17 16:48 54 09/17/17 16:00 97.0 57 18 113/45 (67) 95 09/17/17 15:09 69 I/O 09/17/17 09/17/17 09/17/17 09/18/17 09/18/17 09/18/17 07:00 15:00 23:00 07:00 15:00 23:00 Intake Total 370 ml 300 ml 200 ml 350 ml Balance 370 ml 300 ml 200 ml 350 ml Intake Oral 120 ml 300 ml 0 ml IV Total 250 ml 200 ml 350 ml # Voids 4 3 3 # Bowel Movements 0 0 0 Result Diagram: 09/16/17 0757 09/18/17 0417 Imaging Last Impressions Wrist X-Ray 09/18/17 0000 Signed Impressions: Service Date/Time: August 14:04 - CONCLUSION: Status post radial fracture fixation. Roque Vargas MD Carotid Artery Ultrasound 09/15/17 0000 Signed Impressions: Service Date/Time: Friday, September 15, 2017 18:57 - CONCLUSION: 1. Moderate plaque formation in the left carotid bulb with hemodynamic profile characteristic of 50-69%% stenosis. 2. Normal hemodynamic profile on the right. Enrique Wasserman MD Chest X-Ray 09/14/17 2019 Signed Impressions: Service Date/Time: Thursday, September 14, 2017 20:37 - CONCLUSION: Diffuse increased interstitial markings likely related to edema. There is some accompanying atelectasis or consolidation at the lung bases and lateral right upper lung. Jourdan Betancourt MD Objective Remarks awake and alert, no acute distress oriented to person, and place old ecchymoses left side of face + bruit left carotid anicteric decrease breath sounds, regular rhythm + 3/6 systolic murmur left sternal border abdomen soft, nontender extremities - LUE-post op dressing in place LE no edema, moves both lower extremities spontaneously, no calf tenderness A/P Problem List: (1) PNA (pneumonia) ICD Code: J18.9 - Pneumonia, unspecified organism (2) COPD (chronic obstructive pulmonary disease) ICD Code: J44.9 - Chronic obstructive pulmonary disease, unspecified (3) CHF (congestive heart failure) ICD Code: I50.9 - Heart failure, unspecified (4) Hypoxia ICD Code: R09.02 - Hypoxemia (5) JH (acute kidney injury) ICD Code: N17.9 - Acute kidney failure, unspecified (6) A-fib ICD Code: I48.91 - Unspecified atrial fibrillation (7) Wrist fracture ICD Code: S62.109A - Fracture of unspecified carpal bone, unspecified wrist, initial encounter for closed fracture Assessment and Plan 82 years old likely with underlying dementia- she only recalls Dr. Gabriel as her PCP S/P ORIF- for distal radial fracture t Fx: s/p mechanical fall 09/03/17, 09/[address] Land, plan is for surgical intervention. Analgesics/ antiemetics as needed. Sepsis-secondary to PNA: CXR w/ likely consolidation at bases/lateral right upper lung, on Rocephin/Zithro . continue w/ IV Abx. repeat CXR 09/18 Pyuria - Klebsiella -- no significant colony count Acute respiratory failure- continue on supplement CHF: Echo 01/20/14 w/ EF 50-55%, on diuretics at home for recurrent edema, CXR w / diffuse increased interstitial marking likely due to edema. History of A fib S/P ablation- RVR on admission now rate controlled- in SR S/P telemetry with 2 seconds pause- brief asymptomatic- 09/15 in sinus rhythm Lasix 20mg daily, monitor I/O. On Xarelto- held for surgery for the wrist- restart in am Amiodarone - Discontinued - monitor Dr. Leon ff along with us- d/w him 09/16 Hypokalemia- improved replace IV and po. KCL 10 meq po bid. Mg improved- 2.0 JH:- resolved r/o underlying CKI creatinine improved Gentle IVF Anemia- drop in H- received 1L IV- recheck in am. no external signs of bleeding. H and H stable Left carotid stenosis. seen by Vascular surgery consult. - mild. recommends ASa 81 mg patient on Xarelto Out of bed to chair for all meals- with assistance DVT Prophylaxis: On Xarelto.- held for possible surgery.- restart post op Social work for d/c planning as needed. Bree Terrell MD Sep 18, 2017 14:06
--- NOTE | 2017-09-18 14:35 | RADRPT ---
EXAM DATE/TIME: 09/18/2017 14:04 [facility] COMPARISON: No previous studies available for comparison. INDICATIONS : Left wrist fracture- ORIF. MEDICAL HISTORY : None. SURGICAL HISTORY : None. ENCOUNTER: Initial ACUITY: 1 day PAIN SCORE: Non-responsive. LOCATION: Left Wrist. FINDINGS: Two view examination of the left wrist demonstrates intraoperative films show placement of a distal r adial plate anteriorly with what appears to be good alignment . CONCLUSION: Status post radial fracture fixation. Roque Vargas MD on September 18, 2017 at 14:33 Board Certified Radiologist. This report was verified electronically.
[2017-09-18] MEDS ORDERED: DO NOT ADM ANY ANTICOAGULANT DRUGS PRN (14:42)
--- NOTE | 2017-09-18 16:07 | HHI.PR ---
Immediate Post Op Note Procedure Date: Sep 18, 2017 Pre Op Diagnosis: closed left distal radius fracture Post Op Diagnosis: same Surgeon: Adeola Land Judge Clerk(s): none Procedure: ORIF left distal radius fracture Complications: none Specimen(s) removed: none Estimated blood loss: minimal Anesthesia: General Drains: None IVF Patient to: PACU Patient Condition: Good Adeola Land MD Sep 18, 2017 16:07
[2017-09-18] MEDS ORDERED: SODIUM CHLORIDE 0.9% FLUSH 10 ML FLUSH IV FLUSH PRN (16:15)
[2017-09-18] MEDS ORDERED: *morphine SULFATE 4 MG/ML PERIprocedure ONLY ONE (16:18)
[2017-09-18] MEDS ORDERED: DIMETHICONE/OXYBENZONE/PADMIATE LIP BALM 4.25 GM TOPICAL ONE (16:34)
[2017-09-18] MEDS: cefTRIAXone INJ 1,000 MG in SODIUM CHLORIDE 0.9% INJ 100 ML IV SCH (21:09)
[2017-09-18] MEDS: AZITHROMYCIN INJ 500 MG in SODIUM CHLOR 0.9% 250 ML INJ 250 ML IV SCH (21:10)
[2017-09-18] MEDS: MIRTAZAPINE 15 MG TAB PO SCH (21:10)
[2017-09-18] MEDS: LATANOPROST 0.005% OPHT SOLN 2.5 ML BTL EACH EYE SCH (21:11)
[2017-09-19] VITALS (10 sets, daily range): BP systolic 112–147; BP diastolic 53–67; PULSE 52–75; RESP 17–18; TEMP 96.4–99.9; O2SAT 90–99
[2017-09-19] MEDS: MORPHINE SULFATE 2 MG/ML INJ IV PRN ×3 (01:42→17:43)
--- NOTE | 2017-09-19 08:35 | HHI.PR ---
Subjective Remarks awake and alert now states left ankle pain- states started few days ago- but never mentioned it Objective Vitals Vital Signs Date Time Temp Pulse Resp B/P (MAP) Pulse Ox O2 Delivery O2 Flow Rate FiO2 09/19/17 05:54 16 09/19/17 04:47 70 09/19/17 04:25 96.4 72 18 127/61 (83) 93 09/19/17 01:00 96.9 71 18 145/64 (91) 95 09/18/17 23:45 70 09/18/17 23:26 Nasal Cannula 2.00 09/18/17 20:15 97.7 17 19 130/64 (86) 97 09/18/17 19:47 72 09/18/17 16:55 96.7 67 18 104/50 (68) 98 09/18/17 16:28 98.4 67 15 102/52 (69) 97 Nasal Cannula 3 09/18/17 16:15 69 17 160/68 (98) 97 Nasal Cannula 3 09/18/17 15:45 71 17 156/69 (98) 97 Nasal Cannula 3 09/18/17 15:30 68 15 152/67 (95) 96 Nasal Cannula 3 09/18/17 15:15 72 17 157/68 (97) 97 Nasal Cannula 3 09/18/17 15:00 74 14 158/71 (100) 96 Nasal Cannula 3 09/18/17 14:43 97.8 74 14 163/70 (101) 96 Nasal Cannula 3 09/18/17 11:50 96.6 70 18 114/56 (75) 97 09/18/17 10:09 70 I/O 09/18/17 09/18/17 09/18/17 09/19/17 09/19/17 09/19/17 07:00 15:00 23:00 07:00 15:00 23:00 Intake Total 350 ml 0 ml 1240 ml 240 ml Output Total 10 ml Balance 350 ml 0 ml 1230 ml 240 ml Intake Oral 0 ml 0 ml 240 ml 240 ml IV Total 350 ml 350 ml Other 650 ml Estimated Blood Loss 10 ml # Voids 3 5 2 2 # Bowel Movements 0 0 0 Result Diagram: 09/16/17 0757 09/18/17 0417 Imaging Last Impressions Wrist X-Ray 09/18/17 0000 Signed Impressions: Service Date/Time: August 14:04 - CONCLUSION: Status post radial fracture fixation. Roque Vargas MD Carotid Artery Ultrasound 09/15/17 0000 Signed Impressions: Service Date/Time: Friday, September 15, 2017 18:57 - CONCLUSION: 1. Moderate plaque formation in the left carotid bulb with hemodynamic profile characteristic of 50-69%% stenosis. 2. Normal hemodynamic profile on the right. Enrique Wasserman MD Chest X-Ray 09/14/172018 Signed Impressions: Service Date/Time: Thursday, September 14, 2017 20:37 - CONCLUSION: Diffuse increased interstitial markings likely related to edema. There is some accompanying atelectasis or consolidation at the lung bases and lateral right upper lung. Jourdan Betancourt MD Objective Remarks awake and alert, no acute distress oriented to person, and place old ecchymoses left side of face + bruit left carotid anicteric decrease breath sounds, regular rhythm + 3/6 systolic murmur left sternal border abdomen soft, nontender extremities - LUE-post op dressing in place LE no edema, moves both lower extremities spontaneously, no calf tenderness -slight pain on dorsiflexion of the foot, no ankle swelling, moves toes and foot freely, able to raise foot with no difficulty Procedures 09/18- ORIF- left distal radial fracture A/P Problem List: (1) PNA (pneumonia) ICD Code: J18.9 - Pneumonia, unspecified organism (2) COPD (chronic obstructive pulmonary disease) ICD Code: J44.9 - Chronic obstructive pulmonary disease, unspecified (3) CHF (congestive heart failure) ICD Code: I50.9 - Heart failure, unspecified (4) Hypoxia ICD Code: R09.02 - Hypoxemia (5) JH (acute kidney injury) ICD Code: N17.9 - Acute kidney failure, unspecified (6) A-fib ICD Code: I48.91 - Unspecified atrial fibrillation (7) Wrist fracture ICD Code: S62.109A - Fracture of unspecified carpal bone, unspecified wrist, initial encounter for closed fracture Assessment and Plan 82 years old likely with underlying dementia- she only recalls Dr. Gabriel as her PCP S/P ORIF- for distal radial fracture t Fx: s/p mechanical fall 09/03/17, 09/[address] Lambie, plan is for surgical intervention. Analgesics/ antiemetics as needed. PT/OT consult today Left ankle pain- new complain on exam no swelling get xrays get PT consult to evaluate Sepsis-secondary to PNA: CXR w/ likely consolidation at bases/lateral right upper lung, on Rocephin/Zithro . continue w/ IV Abx. ID ff repeat CXR 09/19- today Pyuria - Klebsiella -- no significant colony count Acute respiratory failure- continue on supplement CHF: Echo 01/20/14 w/ EF 50-55%, on diuretics at home for recurrent edema, CXR w / diffuse increased interstitial marking likely due to edema. History of A fib S/P ablation- RVR on admission now rate controlled-- remains in SR since S/P telemetry with 2 seconds pause- brief asymptomatic- 09/15 in sinus rhythm Lasix 20mg daily, monitor I/O. On Xarelto- held for surgery for the wrist- restart today if cleared with Hand surgery Amiodarone - Discontinued - monitor Dr. Leon along with us- d/w him 09/16 Hypokalemia- improved KCL 10 meq po bid. Mg improved- 2.0 JH:- resolved r/o underlying CKI creatinine improved Anemia- drop in H- received 1L IV- recheck in am. no external signs of bleeding. H and H stable Left carotid stenosis. seen by Vascular surgery consult. - mild. recommends ASa 81 mg patient on Xarelto Out of bed to chair for all meals- with assistance DVT Prophylaxis: On Xarelto.- held for possible surgery.- restart post op Social work for d/c planning as needed. Bree Terrell MD Sep 19, 2017 08:35
[2017-09-19] MEDS: POTASSIUM CHLORIDE 10 MEQ CAP PO SCH ×2 (09:53→21:52)
[2017-09-19] MEDS: CYANOCOBALAMIN 1,000 MCG TAB PO SCH (09:53)
[2017-09-19] MEDS: SODIUM CHLORIDE 0.9% FLUSH 10 ML FLUSH IV FLUSH SCH ×3 (09:53→21:53)
[2017-09-19] MEDS: FOLIC ACID 1 MG TAB PO SCH (09:53)
[2017-09-19] MEDS: FUROSEMIDE 20 MG TAB PO SCH (09:53)
[2017-09-19] MEDS: DOCUSATE SODIUM 50 MG/SENNA 8.6 MG TAB PO SCH ×2 (09:53→21:53)
[2017-09-19] MEDS: BUDESONIDE-FORMOTEROL 160/4.5 MCG INHALER INH SCH ×2 (09:54→21:53)
--- NOTE | 2017-09-19 10:06 | RADRPT ---
EXAM DATE/TIME: 09/19/2017 09:35 [facility] COMPARISON: CHEST SINGLE AP, September 14, 2017, 20:37. INDICATIONS : Cough. MEDICAL HISTORY : None. SURGICAL HISTORY : Left wrist ENCOUNTER: Initial ACUITY: 3 days PAIN SCORE: 0/10 LOCATION: Bilateral chest FINDINGS: Redemonstration of bilateral lower lobe airspace disease and likely trace pleural effusions. Improved aeration in the right upper lung zone. Slightly improved interstitial prominence. Cardiomediastinal contours are stable. Remainder of exam is unchanged. CONCLUSION: 1. Slightly improved positive fluid balance. 2. Improved aeration in the lateral right upper lobe. 3. Stable bilateral lower lobe airspace disease and likely trace bilateral pleural effusions. Ivan Leahy MD on September 19, 2017 at 10:01 Board Certified Radiologist. This report was verified electronically.
--- NOTE | 2017-09-19 10:07 | RADRPT ---
EXAM DATE/TIME: 09/19/2017 09:37 [facility] COMPARISON: No previous studies available for comparison. INDICATIONS : Complains of pain in left foot when flexing. MEDICAL HISTORY : None. SURGICAL HISTORY : None. ENCOUNTER: Initial ACUITY: 3 days PAIN SCORE: 2/10 LOCATION: Left foot FINDINGS: Three view examination of the left foot demonstrates no soft tissue swelling, dislocation, or fractur e. The tarsal bones appear intact. The interphalangeal and metatarsophalangeal joints are intact. The calcaneus is intact. Mild osteopenia. CONCLUSION: 1. No acute fracture or dislocation. Ivan Leahy MD on September 19, 2017 at 10:03 Board Certified Radiologist. This report was verified electronically.
--- NOTE | 2017-09-19 11:12 | HHI.PR ---
Subjective Remarks pt denies chest pain and SOB Objective Vital Signs Date Time Temp Pulse Resp B/P (MAP) Pulse Ox O2 Delivery O2 Flow Rate FiO2 09/19/17 08:00 96.6 74 18 118/56 (76) 90 09/19/17 05:54 16 09/19/17 04:47 70 09/19/17 04:25 96.4 72 18 127/61 (83) 93 09/19/17 01:00 96.9 71 18 145/64 (91) 95 VSS 09/18/17 23:45 70 09/18/17 23:26 Nasal Cannula 2.00 09/18/17 20:15 97.7 17 19 130/64 (86) 97 09/18/17 19:47 72 09/18/17 16:55 96.7 67 18 104/50 (68) 98 09/18/17 16:28 98.4 67 15 102/52 (69) 97 Nasal Cannula 3 09/18/17 16:15 69 17 160/68 (98) 97 Nasal Cannula 3 09/18/17 15:45 71 17 156/69 (98) 97 Nasal Cannula 3 09/18/17 15:30 68 15 152/67 (95) 96 Nasal Cannula 3 09/18/17 15:15 72 17 157/68 (97) 97 Nasal Cannula 3 09/18/17 15:00 74 14 158/71 (100) 96 Nasal Cannula 3 09/18/17 14:43 97.8 74 14 163/70 (101) 96 Nasal Cannula 3 09/18/17 11:50 96.6 70 18 114/56 (75) 97 I/O 09/18/17 09/18/17 09/18/17 09/19/17 09/19/17 09/19/17 07:00 15:00 23:00 07:00 15:00 23:00 Intake Total 350 ml 0 ml 1240 ml 240 ml Output Total 10 ml Balance 350 ml 0 ml 1230 ml 240 ml Intake Oral 0 ml 0 ml 240 ml 240 ml IV Total 350 ml 350 ml Other 650 ml Estimated Blood Loss 10 ml # Voids 3 5 2 2 # Bowel Movements 0 0 0 VSS CHEST: CTA HEART: S1,S2,RRR ABD :ST,NT EXT: No edema Result Diagram: 09/16/17 0757 09/18/17 0417 Assessment and Plan Assessment and Plan Pt is stable cardiacwise. S/P wrist surgery.Xarelto is on hold, restart when OK with surgery. agree with management for PNA and UTI. I will follow as outpt. Thank you Ivone Leon MD Sep 19, 2017 11:12
[2017-09-19 11:35] LABS: BICARBONATE 29.6 MEQ/L (21.0-32.0); POTASSIUM 4.2 MEQ/L (3.5-5.1)
--- NOTE | 2017-09-19 16:36 | HHI.IDPN ---
Note Infectious Disease Note Patient says her left arm hurts. Looks much more alert. caregiver at bedside says patient has some dementia but thinks she looks very alert. Afebrile. No sputum production. No chills. Antibiotics Ceftriaxone. Zithromax. Allergies: Coded Allergies: codeine (Unverified Allergy, Severe, Itching, 09/02/17) OBJECTIVE: Vital Signs Date Time Temp Pulse Resp B/P (MAP) Pulse Ox O2 Delivery O2 Flow Rate FiO2 09/19/17 12:00 96.4 72 18 147/65 (92) 99 09/19/17 08:00 96.6 74 18 118/56 (76) 90 09/19/17 05:54 16 09/19/17 04:47 70 09/19/17 04:25 96.4 72 18 127/61 (83) 93 09/19/17 01:00 96.9 71 18 145/64 (91) 95 09/18/17 23:45 70 09/18/17 23:26 Nasal Cannula 2.00 09/18/17 20:15 97.7 17 19 130/64 (86) 97 09/18/17 19:47 72 09/18/17 16:55 96.7 67 18 104/50 (68) 98 Laboratory Tests Test 09/18/17 04:17 09/19/17 10:24 Blood Urea Nitrogen 14 MG/DL 22 MG/DL Creatinine 0.85 MG/DL 0.93 MG/DL Random Glucose 86 MG/DL 131 MG/DL Calcium Level 7.9 MG/DL 7.7 MG/DL Sodium Level 141 MEQ/L 143 MEQ/L Potassium Level 3.7 MEQ/L 4.2 MEQ/L Chloride Level 104 MEQ/L 106 MEQ/L Carbon Dioxide Level 33.8 MEQ/L 29.6 MEQ/L Anion Gap 3 MEQ/L 7 MEQ/L Estimat Glomerular Filtration Rate 64 ML/MIN 57 ML/MIN Imaging Foot X-Ray 09/19/17 0000 Signed Impressions: Service Date/Time: Tuesday, September 19, 2017 09:37 - CONCLUSION: 1. No acute fracture or dislocation. Ivan Leahy MD Chest X-Ray 09/19/17 0000 Signed Impressions: Service Date/Time: Tuesday, September 19, 2017 09:35 - CONCLUSION: 1. Slightly improved positive fluid balance. 2. Improved aeration in the lateral right upper lobe. 3. Stable bilateral lower lobe airspace disease and likely trace bilateral pleural effusions. Ivan Leahy MD Wrist X-Ray 09/18/17 0000 Signed Impressions: Service Date/Time: August 14:04 - CONCLUSION: Status post radial fracture fixation. Roque Vargas MD Carotid Artery Ultrasound 09/15/17 0000 Signed Impressions: Service Date/Time: Friday, September 15, 2017 18:57 - CONCLUSION: 1. Moderate plaque formation in the left carotid bulb with hemodynamic profile characteristic of 50-69%% stenosis. 2. Normal hemodynamic profile on the right. Enrique Wasserman MD Chest X-Ray 09/14/17 2019 Signed Impressions: Service Date/Time: Thursday, September 14, 2017 20:37 - CONCLUSION: Diffuse increased interstitial markings likely related to edema. There is some accompanying atelectasis or consolidation at the lung bases and lateral right upper lung. Jourdan Betancourt MD Physical Exam GENERAL: Frail, cachectic female in no acute distress. HEAD: Normocephalic. EYES: No scleral icterus. No injection or drainage. NECK: Supple, trachea midline. No JVD or lymphadenopathy. CARDIOVASCULAR: Irregular rate and rhythm without murmurs, gallops, or rubs. RESPIRATORY: decreased breath sounds. No accessory muscle use. GASTROINTESTINAL: Abdomen soft, non-tender, nondistended. EXTREMITIES: No cyanosis, or edema. NEUROLOGICAL: Awake, alert, and oriented x 2. Non-focal. SKIN: Warm and dry. Impression: Pneumonia likely secondary to aspiration. Patient has nausea and vomiting before admission per my discussion with the memory care director at her [facility]. Positive Blood culture is most likely contamination and I do not recommend repeating it. Abnormal urinalysis - She was being treated with Macrobid at the [facility] before admission and the urine culture here has <15,000 colonies of klebsiella is resistant to Macrobid. Leukocytosis has resolved. Stable. RECOMMEND : Treatment for pneumonia. Change antibiotic to Cefuroxime x 4 more days. I will sign off now. Home Gandhi MD Sep 19, 2017 16:36
--- NOTE | 2017-09-19 18:22 | PD.ORT.PN ---
Subjective Subjective Remarks Patient resting comfortably this morning. No acute events. Objective Vitals Vital Signs Date Time Temp Pulse Resp B/P (MAP) Pulse Ox O2 Delivery O2 Flow Rate FiO2 09/19/17 12:00 96.4 72 18 147/65 (92) 99 09/19/17 08:00 96.6 74 18 118/56 (76) 90 09/19/17 05:54 16 09/19/17 04:47 70 09/19/17 04:25 96.4 72 18 127/61 (83) 93 09/19/17 01:00 96.9 71 18 145/64 (91) 95 09/18/17 23:45 70 09/18/17 23:26 Nasal Cannula 2.00 09/18/17 20:15 97.7 17 19 130/64 (86) 97 09/18/17 19:47 72 I/O 09/18/17 09/18/17 09/18/17 09/19/17 09/19/17 09/19/17 07:00 15:00 23:00 07:00 15:00 23:00 Intake Total 350 ml 0 ml 1240 ml 240 ml Output Total 10 ml Balance 350 ml 0 ml 1230 ml 240 ml Intake Oral 0 ml 0 ml 240 ml 240 ml IV Total 350 ml 350 ml Other 650 ml Estimated Blood Loss 10 ml # Voids 3 5 2 2 # Bowel Movements 0 0 0 Result Diagram: 09/16/17 0757 09/19/17 1024 Imaging Last 24 hours Impressions Foot X-Ray 09/19/17 0000 Signed Impressions: Service Date/Time: Tuesday, September 19, 2017 09:37 - CONCLUSION: 1. No acute fracture or dislocation. Ivan Leahy MD Chest X-Ray 09/19/17 0000 Signed Impressions: Service Date/Time: Tuesday, September 19, 2017 09:35 - CONCLUSION: 1. Slightly improved positive fluid balance. 2. Improved aeration in the lateral right upper lobe. 3. Stable bilateral lower lobe airspace disease and likely trace bilateral pleural effusions. Ivan Leahy MD Objective Remarks Drowsy but arousable. LUE: splint in place. Neuro intact over fingers, BCR. Assessment & Plan Assessment and Plan Patient is an 82-year-old female who presented to the hospital feeling ill and diagnosed with UTI and PNA, now POD#1 s/p ORIF L 1. NWB LUE in splint. Splint to remain in place until follow-up 2. Encouraged patient to work on left elbow range of motion and finger motion. 3. OT/PT for mobilization 4. Ok to restart anticoagulation 5. Patient likely will require placement for rehab given her overall deconditioning and NWB LUE. Follow-up in my office in 2 weeks. Adeola Land MD Sep 19, 2017 18:22
[2017-09-19] MEDS ORDERED: ACETAMINOPHEN/HYDROcodone 325 MG/10 MG TAB PO PRN (20:30)
[2017-09-19] MEDS ORDERED: diphenhydrAMINE HCL 25 MG CAP PO PRN (20:30)
[2017-09-19] MEDS ORDERED: ACETAMINOPHEN/HYDROcodone 325 MG/5 MG TAB PO PRN (20:30)
[2017-09-19] MEDS: CEFUROXIME AXETIL 500 MG TAB PO SCH (21:52)
[2017-09-19] MEDS: LATANOPROST 0.005% OPHT SOLN 2.5 ML BTL EACH EYE SCH (21:53)
[2017-09-19] MEDS: MIRTAZAPINE 15 MG TAB PO SCH (21:53)
[2017-09-20] VITALS: BP 112/55; PULSE 57; RESP 17; TEMP 100; O2SAT 92
[2017-09-20 03:43] VITALS: PULSE 64
[2017-09-20 04:00] VITALS: BP 128/58; PULSE 67; RESP 17; TEMP 96.6; O2SAT 94
[2017-09-20 08:00] VITALS: BP 99/49; PULSE 51; RESP 17; TEMP 97.8; O2SAT 94
--- NOTE | 2017-09-20 08:12 | HHI.PR ---
Subjective Remarks no pain complains awake and alert on telemetry- sinus rhythm- rate 60s Objective Vitals Vital Signs Date Time Temp Pulse Resp B/P (MAP) Pulse Ox O2 Delivery O2 Flow Rate FiO2 09/20/17 04:23 17 09/20/17 04:00 96.6 67 17 128/58 (81) 94 09/20/17 03:43 64 09/20/17 00:00 100.0 57 17 112/55 (74) 92 09/19/17 23:46 56 09/19/17 22:22 Nasal Cannula 2.00 09/19/17 20:42 52 09/19/17 20:00 99.9 57 17 112/53 (72) 95 09/19/17 16:00 97.3 58 18 130/67 (88) 93 09/19/17 12:00 96.4 72 18 147/65 (92) 99 09/19/17 10:30 75 I/O 09/19/17 09/19/17 09/19/17 09/20/17 09/20/17 09/20/17 06:59 14:59 22:59 06:59 14:59 22:59 Intake Total 240 ml 480 ml 90 ml Balance 240 ml 480 ml 90 ml Intake Oral 240 ml 480 ml 90 ml # Voids 2 3 5 # Bowel Movements 0 Result Diagram: 09/16/17 0757 09/19/17 1024 Imaging Last Impressions Foot X-Ray 09/19/17 0000 Signed Impressions: Service Date/Time: Tuesday, September 19, 2017 09:37 - CONCLUSION: 1. No acute fracture or dislocation. Ivan Leahy MD Chest X-Ray 09/19/17 0000 Signed Impressions: Service Date/Time: Tuesday, September 19, 2017 09:35 - CONCLUSION: 1. Slightly improved positive fluid balance. 2. Improved aeration in the lateral right upper lobe. 3. Stable bilateral lower lobe airspace disease and likely trace bilateral pleural effusions. Ivan Leahy MD Wrist X-Ray 09/18/17 0000 Signed Impressions: Service Date/Time: August 14:04 - CONCLUSION: Status post radial fracture fixation. Roque Vargas MD Carotid Artery Ultrasound 09/15/17 0000 Signed Impressions: Service Date/Time: Friday, September 15, 2017 18:57 - CONCLUSION: 1. Moderate plaque formation in the left carotid bulb with hemodynamic profile characteristic of 50-69%% stenosis. 2. Normal hemodynamic profile on the right. Enrique Wasserman MD Objective Remarks awake and alert, no acute distress oriented to person, and place old ecchymoses left side of face + bruit left carotid anicteric decrease breath sounds, regular rhythm + 3/6 systolic murmur left sternal border abdomen soft, nontender extremities - LUE-post op dressing in place LE no edema, moves both lower extremities spontaneously, no calf tenderness Procedures 09/18- ORIF- left distal radial fracture A/P Problem List: (1) PNA (pneumonia) ICD Code: J18.9 - Pneumonia, unspecified organism (2) COPD (chronic obstructive pulmonary disease) ICD Code: J44.9 - Chronic obstructive pulmonary disease, unspecified (3) CHF (congestive heart failure) ICD Code: I50.9 - Heart failure, unspecified (4) Hypoxia ICD Code: R09.02 - Hypoxemia (5) JH (acute kidney injury) ICD Code: N17.9 - Acute kidney failure, unspecified (6) A-fib ICD Code: I48.91 - Unspecified atrial fibrillation (7) Wrist fracture ICD Code: S62.109A - Fracture of unspecified carpal bone, unspecified wrist, initial encounter for closed fracture Assessment and Plan 82 years old likely with underlying dementia- she only recalls Dr. Gabriel as her PCP S/P ORIF- for distal radial fracture t Fx: s/p mechanical fall 09/03/17, 09/18 1. NWB LUE in splint. Splint to remain in place until follow-up 2. Encouraged patient to work on left elbow range of motion and finger motion. 3. OT/PT for mobilization 4. Ok to restart anticoagulation 5. Patient likely will require placement for rehab given her overall deconditioning and NWB LUE. Follow-up in my office in 2 weeks. OP ff up with Dr. Land in 1 week Left ankle pain- resolved Sepsis-secondary to PNA: CXR w/ likely consolidation at bases/lateral right upper lung, on Rocephin/Zithro . continue w/ IV Abx. ID ff repeat CXR 09/19- - improved DC on Ceftin 500 mg po bid till 09/23 Pyuria - Klebsiella -- no significant colony count Acute respiratory failure- continue on 02 supplement CHF: Echo 01/20/14 w/ EF 50-55%, on diuretics at home for recurrent edema, CXR w / diffuse increased interstitial marking likely due to edema. History of A fib S/P ablation- RVR on admission now rate controlled-- remains in SR since S/P telemetry with 2 seconds pause- brief asymptomatic- 09/15 in sinus rhythm Lasix 20mg daily, monitor I/O. On Xarelto- restart Amiodarone - Discontinued - monitor Dr. Leon ff along with us- d/w him 09/16- OP ff up with him Hypokalemia- improved KCL 10 meq po bid. Mg improved- 2.0 JH:- resolved r/o underlying CKI creatinine improved Anemia- drop in H- received 1L IV- recheck in am. no external signs of bleeding. H and H stable Left carotid stenosis. seen by Vascular surgery consult. - mild. patient on Xarelto Out of bed to chair for all meals- with assistance DVT Prophylaxis: On Xarelto. Social work for d/c planning- will need Bree Terrell MD Sep 20, 2017 08:12
[2017-09-20] MEDS ORDERED: CEFU1TAB20 PO (08:19)
[2017-09-20] MEDS ORDERED: Budeson-Formot 160-4.5 Mcg Inh INH (08:25)
[2017-09-20] MEDS ORDERED: HYDR-3516 PO ×2 (08:25→08:28)
--- NOTE | 2017-09-20 08:32 | HHI.DS ---
Discharge Summary Admission Date Sep 14, 2017 at 21:46 Discharge Date: Sep 20, 2017 Admitting Diagnosis PNA; CHF; Hypoxia (1) PNA (pneumonia) ICD Code: J18.9 - Pneumonia, unspecified organism Diagnosis: Principal (2) COPD (chronic obstructive pulmonary disease) ICD Code: J44.9 - Chronic obstructive pulmonary disease, unspecified (3) CHF (congestive heart failure) ICD Code: I50.9 - Heart failure, unspecified (4) Hypoxia ICD Code: R09.02 - Hypoxemia (5) JH (acute kidney injury) ICD Code: N17.9 - Acute kidney failure, unspecified (6) A-fib ICD Code: I48.91 - Unspecified atrial fibrillation (7) Wrist fracture ICD Code: S62.109A - Fracture of unspecified carpal bone, unspecified wrist, initial encounter for closed fracture Diagnosis: Secondary Procedures 09/18- ORIF- left distal radial fracture Brief History - From Admission This is an 82-year-old female with a PMH of HTN, A. fib on Xarelto, Anxiety, Depression and presumed CHF who was brought to the ER by EMS secondary to generalized weakness in addition to SOB. O2 sat 89% on RA upon arrival. Pt w/ no significant complaints at this time. BP 100/54, HR 118, O2 sat, 89% on RA, Afebrile. WBC 18.9. Creatinine 1.54, produces 0.901 03/07/16. BNP 163. Lactic Acid 2.0. UA positive for UTI. CXR with increased interstitial markings likely edema, possibly consolidation at the lung bases and lateral right upper lung. S/p Rocephin/Zithro in ER. CBC/BMP: 09/16/17 0757 09/19/17 1024 Significant Findings Laboratory Tests Test 09/18/17 04:17 09/19/17 10:24 Calcium Level 7.9 MG/DL (8.5-10.1) 7.7 MG/DL (8.5-10.1) Carbon Dioxide Level 33.8 MEQ/L (21.0-32.0) Anion Gap 3 MEQ/L (5-15) Estimat Glomerular Filtration Rate 64 ML/MIN (>89) 57 ML/MIN (>89) Blood Urea Nitrogen 22 MG/DL (7-18) Random Glucose 131 MG/DL (74-106) PE at Discharge awake and alert, no acute distress oriented to person, and place old ecchymoses left side of face + bruit left carotid anicteric decrease breath sounds, regular rhythm + 3/6 systolic murmur left sternal border abdomen soft, nontender extremities - LUE-post op dressing in place LE no edema, moves both lower extremities spontaneously, no calf tenderness Pt update on day of discharge awake and alert in SR pain controlled Hospital Course 82 years old likely with underlying dementia- she only recalls Dr. Gabriel as her PCP S/P ORIF- for distal radial fracture t Fx: s/p mechanical fall 09/03/17, 09/18 1. NWB LUE in splint. Splint to remain in place until follow-up 2. Encouraged patient to work on left elbow range of motion and finger motion. 3. OT/PT for mobilization 4. Ok to restart anticoagulation 5. Patient likely will require placement for rehab given her overall deconditioning and NWB LUE. Follow-up in my office in 2 weeks. OP ff up with Dr. Land in 1 week Left ankle pain- resolved Sepsis-secondary to PNA: CXR w/ likely consolidation at bases/lateral right upper lung, on Rocephin/Zithro . continue w/ IV Abx. ID ff repeat CXR 09/19- - improved DC on Ceftin 500 mg po bid till 09/23 Pyuria - Klebsiella -- no significant colony count Acute respiratory failure- continue on supplement CHF: Echo 01/20/14 w/ EF 50-55%, on diuretics at home for recurrent edema, CXR w / diffuse increased interstitial marking likely due to edema. History of A fib S/P ablation- RVR on admission now rate controlled-- remains in SR since S/P telemetry with 2 seconds pause- brief asymptomatic- 09/15 in sinus rhythm Lasix 20mg daily, monitor I/O. On Xarelto- restart Amiodarone - Discontinued - monitor Dr. Leon ff along with us- d/w him 09/16- OP ff up with him Hypokalemia- improved KCL 10 meq po bid. Mg improved- 2.0 JH:- resolved r/o underlying CKI creatinine improved Anemia- drop in H- received 1L IV- recheck in am. no external signs of bleeding. H and H stable Left carotid stenosis. seen by Vascular surgery consult. - mild. patient on Xarelto Out of bed to chair for all meals- with assistance DVT Prophylaxis: On Xarelto. Social work for d/c planning- will need SNF Pt Condition on Discharge: Stable Discharge Disposition: Discharge to SNF Discharge Time: <= 30 minutes Discharge Instructions DIET: Follow Instructions for: As Tolerated, No Restrictions, Heart Healthy Diet Activities you can perform: See Additionl Instruction Other Activity Instructions: 1. NWB LUE in splint. Splint to remain in place until follow-up 2. Encouraged patient to work on left elbow range of motion and finger motion. 3. OT/PT for mobilization Follow up Referrals: Orthopedics - 2 Weeks @ [facility] with Adeola Land MD New Medications: Cefuroxime (Cefuroxime) 500 Mg Tab 500 MG PO Q12HR for PNA for 4 Days, #7 TAB Hydrocodone/Acetaminophen (Hydrocodone-Acetamin 5-325 mg) 5 Mg-325 Mg Tablet 1 TAB PO Q8HR PRN for PAIN SCALE 4 TO 10, #15 TAB [Budeson-Formot 160-4.5 Mcg Inh] () 60 PUFF AERO 2 PUFF INH Q12HR for RESP for 10 Days Continued Medications: Amlodipine (Amlodipine) 10 Mg Tab 10 MG PO DAILY for Blood Pressure Management, #30 TAB 0 Refills Cyanocobalamin (Vitamin B-12) 1,000 Mcg Tab 1000 MCG PO DAILY for Nutritional Supplement, #1 BOTTLE 0 Refills Folic Acid (Folic Acid) 0.8 Mg Tab 1 MG PO DAILY for Nutritional Supplement, TAB 0 Refills Furosemide (Furosemide) 20 Mg Tab 20 MG PO DAILY, #30 TAB 0 Refills Hydrocodone-Acetaminophen (Hydrocodone-Acetaminophen) 5-325 mg Tab 1 TAB PO Q6H PRN for PAIN, #15 TAB 0 Refills (This prescription has been renewed ) Latanoprost Opth Drops (Latanoprost Opth Drops) 0.005% Drops 1 DROP EACH EYE HS for Glaucoma, #2.5 ML 0 Refills Refrigerate until opened. Potassium Chloride ER (Klor-Con 10) 10 Meq Tab 10 MEQ PO DAILY for Electrolyte Replacement, #30 TAB 0 Refills Rivaroxaban (Xarelto) 20 Mg Tab 20 MG PO DAILY for Blood Clot Prevention, TAB 0 Refills Discontinued Medications: Amiodarone (Amiodarone) 200 Mg Tab 200 MG PO DAILY for Regulate Heart Beat, #30 TAB 0 Refills Losartan (Losartan) 25 Mg Tab 25 MG PO DAILY for Blood Pressure Management, #30 TAB 0 Refills Mirtazapine (Mirtazapine) 7.5 Mg Tab 7.5 MG PO HS for Depression Control, #30 TAB 0 Refills Bree Terrell MD Sep 20, 2017 08:32
[2017-09-20] MEDS: BUDESONIDE-FORMOTEROL 160/4.5 MCG INHALER INH SCH (09:00)
[2017-09-20] MEDS ORDERED: ACETAMINOPHEN/HYDROcodone 325 MG/5 MG TAB PO PRN (09:00)
[2017-09-20] MEDS: SODIUM CHLORIDE 0.9% FLUSH 10 ML FLUSH IV FLUSH SCH (09:00)
[2017-09-20] MEDS ORDERED: RIVAROXABAN 10 MG TAB PO SCH ×2 (09:00)
[2017-09-20] MEDS: CEFUROXIME AXETIL 500 MG TAB PO SCH (09:21)
[2017-09-20] MEDS: DOCUSATE SODIUM 50 MG/SENNA 8.6 MG TAB PO SCH (09:21)
[2017-09-20] MEDS: POTASSIUM CHLORIDE 10 MEQ CAP PO SCH (09:22)
[2017-09-20] MEDS: FUROSEMIDE 20 MG TAB PO SCH (09:22)
[2017-09-20] MEDS: FOLIC ACID 1 MG TAB PO SCH (09:22)
[2017-09-20] MEDS: CYANOCOBALAMIN 1,000 MCG TAB PO SCH (09:22)
[2017-09-20 12:00] VITALS: BP 104/50; PULSE 63; RESP 18; TEMP 97.1; O2SAT 97
== END 2017-09-20 15:20 | DRG 853 ==
LOC: NEPC 20:11 → NEDA 21:46 → N06B 09-15 02:39
PROVIDERS: ADMIT Internal Medicine; ATTEND Internal Medicine
PROC: 0PSJ04Z Reposition Left Radius with Internal Fixation Device, Open Approach (ICD-10-PCS; principal; 2017-09-18 12:34)
DX: A41.9 Sepsis, unspecified organism (principal); J96.21 Acute and chronic respiratory failure with hypoxia; J69.0 Pneumonitis due to inhalation of food and vomit; N17.9 Acute kidney failure, unspecified; I11.0 Hypertensive heart disease with heart failure; I50.32 Chronic diastolic (congestive) heart failure; S52.502A Unspecified fracture of the lower end of left radius, initial encounter for closed fracture; D64.9 Anemia, unspecified; N39.0 Urinary tract infection, site not specified; J98.11 Atelectasis; R64 Cachexia; Z68.1 Body mass index [BMI] 19.9 or less, adult; I48.2 Chronic atrial fibrillation; E87.6 Hypokalemia; I65.22 Occlusion and stenosis of left carotid artery; J44.9 Chronic obstructive pulmonary disease, unspecified; K21.9 Gastro-esophageal reflux disease without esophagitis; M25.572 Pain in left ankle and joints of left foot; M19.90 Unspecified osteoarthritis, unspecified site; F03.90 Unspecified dementia, unspecified severity, without behavioral disturbance, psychotic disturbance, mood disturbance, and anxiety; F32.9 Major depressive disorder, single episode, unspecified; F41.9 Anxiety disorder, unspecified; B96.1 Klebsiella pneumoniae [K. pneumoniae] as the cause of diseases classified elsewhere; W18.30XA Fall on same level, unspecified, initial encounter; Z79.01 Long term (current) use of anticoagulants; Z85.828 Personal history of other malignant neoplasm of skin; Z87.891 Personal history of nicotine dependence; Z88.5 Allergy status to narcotic agent; Z96.643 Presence of artificial hip joint, bilateral
CPT/HCPCS: 71010; 73100; 73630; 76000; 80048; 80053; 81001; 83605; 83735; 83880; 85025; 85027; 86850; 86900; 86901; 87040; 87077; 87086; 87186; 87205; 87804; 93005; 93306; 93880; 96365; J0456; J0696; J1580; J1940; J2270; J2405; J3475; J3480; J7050

== ENCOUNTER 2017-10-07 15:22 | Inpatient (IN) | payer MEDICARE, OTHER ==
[~2017-10-07] VITALS: Ht 172.7 cm; Wt 52.2 kg
[~2017-10-07 15:22] MED LIST changes: +AMLO10 PO; +APIX5TAB PO; +Budeson-Formot 160-4.5 Mcg Inh INH; +CEFU1TAB20 PO; +FOLI400T PO; -LOSA25TA PO; +THERM PO
[2017-10-07 15:45] VITALS: BP 102/53; PULSE 72; RESP 15; TEMP 97.8; O2SAT 92; O2SAT 95
[2017-10-07] MEDS ORDERED: SODIUM CHLORIDE 0.9% FLUSH 10 ML FLUSH IV FLUSH PRN ×2 (16:15→18:00)
--- NOTE | 2017-10-07 16:27 | RADRPT ---
EXAM DATE/TIME: 10/07/2017 16:17 [facility] COMPARISON: CHEST SINGLE AP, September 19, 2017, 9:35. INDICATIONS : Short of breath. MEDICAL HISTORY : Chronic obstructive pulmonary disease. Congestive heart failure. hypertension, emphysema atrial fibrillation SURGICAL HISTORY : skin cancer removed ENCOUNTER: Initial ACUITY: 1 day PAIN SCORE: Non-responsive. LOCATION: Bilateral chest FINDINGS: There is dense consolidation in the left lung base with moderate associated effusion. Mild hazy paren chymal opacity in the right base is similar to prior with small right effusion again noted. Accountin g for significant rotation, the visualized mediastinal contours are grossly unchanged. CONCLUSION: Interval development of extensive left base consolidation and effusion. Jourdan Romeo MD on October 07, 2017 at 16:24 Board Certified Radiologist. This report was verified electronically.
--- NOTE | 2017-10-07 16:33 | PD ---
HPI Chief Complaint: AMS Time Seen by Provider: 15:39 Travel History International Travel<30 days: No Contact w/Intl Traveler<30days: No History of Present Illness HPI 82-year-old female presents to the emergency department for evaluation of decreased oral intake, increased confusion. Patient has past medical history of COPD, CHF, dysphagia, muscle weakness, atrial fibrillation on Xarelto, pneumonia, pulmonary edema, anxiety. Patient has had issues with pneumonia recently. According to the nursing facility staff, they're concerned she may be aspirating. She is currently on Levaquin for pneumonia. According to the staff at the senior care, she also has spontaneous bruising that is new for her as well. Patient was recently admitted here for pneumonia, CHF, hypoxia. She was discharged on September 20. Patient is alert and oriented to person, time. However, she was not oriented to place. No exacerbating or alleviating factors. Moderate severity. PFSH Past Medical History Arthritis: Yes Asthma: No Atrial Fibrillation: Yes Autoimmune Disease: No Blood Disorders: No Anxiety: Yes Depression: Yes Heart Rhythm Problems: Yes (AFIB) Cancer: Yes (skin cancer, removed) Cardiovascular Problems: Yes (AFIB) High Cholesterol: No Chemotherapy: No Chest Pain: No Congestive Heart Failure: Yes COPD: Yes Cerebrovascular Accident: No Diabetes: No Diminished Hearing: No Endocrine: No Gastrointestinal Disorders: Yes GERD: Yes Genitourinary: No Headaches: Yes Hiatal Hernia: No Hypertension: Yes Immune Disorder: No Kidney Stones: No Musculoskeletal: Yes (Torn rotator cuff (R)) Neurologic: No Psychiatric: Yes Reproductive: No Respiratory: Yes Migraines: No Radiation Therapy: No Renal Failure: No Seizures: No Sickle Cell Disease: No Sleep Apnea: No Thyroid Disease: No Ulcer: No Menopausal: Yes : 2 Para: 2 Past Surgical History Abdominal Surgery: No AICD: No Arteriovenous Shunt: No Cardiac Surgery: No Ear Surgery: No Endocrine Surgery: No Eye Surgery: No Genitourinary Surgery: No Gynecologic Surgery: No Insulin Pump: No Joint Replacement: Yes (BL hips) Oral Surgery: No Pacemaker: No Thoracic Surgery: No Tonsillectomy: Yes Other Surgery: Yes Social History Alcohol Use: No Tobacco Use: No (QUIT 1966) Substance Use: No Allergies-Medications (Allergen,Severity, Reaction): Coded Allergies: codeine (Unverified Allergy, Severe, Itching, 09/02/17) Reported Meds & Prescriptions Reported Meds & Active Scripts Active Hydrocodone-Acetamin 5-325 mg (Hydrocodone/Acetaminophen) 5 Mg-325 Mg Tablet 1 Tab PO Q8HR PRN Reported Mirtazapine 7.5 Mg Tab 7.5 Mg PO HS Buspirone (Buspirone HCl) 5 Mg Tab 5 Mg PO BID Latanoprost Opth Drops (Latanoprost) 0.005% Drops 1 Drop EACH EYE HS Refrigerate until opened. Klor-Con 10 (Potassium Chloride) 10 Meq Tab 10 Meq PO DAILY Furosemide 20 Mg Tab 20 Mg PO DAILY Folic Acid 0.8 Mg Tab 1 Mg PO DAILY Amlodipine (Amlodipine Besylate) 10 Mg Tab 10 Mg PO DAILY Xarelto (Rivaroxaban) 20 Mg Tab 20 Mg PO DAILY Vitamin B-12 (Cyanocobalamin) 1,000 Mcg Tab 1,000 Mcg PO DAILY Non-Aspirin Pain Relief (Acetaminophen) 325 Mg Tab 325 Mg PO Q4-6H PRN Review of Systems Except as stated in HPI: all other systems reviewed are Neg Physical Exam Narrative GENERAL: Thin, elderly female patient, afebrile. SKIN: Focused skin assessment warm/dry. Patient has ecchymosis noted to bilateral upper and lower extremities. Patient has splint noted to left arm. HEAD: Normocephalic. Atraumatic. EYES: No scleral icterus. No injection or drainage. NECK: Supple, trachea midline. No JVD or lymphadenopathy. CARDIOVASCULAR: Regular rate and rhythm without murmurs, gallops, or rubs. RESPIRATORY: Breath sounds equal bilaterally. No accessory muscle use. Lungs sounds clear to auscultation. GASTROINTESTINAL: Abdomen soft, non-tender, nondistended. MUSCULOSKELETAL: No cyanosis, or edema. BACK: Nontender without obvious deformity. No CVA tenderness. Data Data Last Documented VS Vital Signs Date Time Temp Pulse Resp B/P (MAP) Pulse Ox O2 Delivery O2 Flow Rate FiO2 10/07/17 17:01 15 96 Nasal Cannula 2.00 10/07/17 15:45 72 102/53 (69) 10/07/17 15:45 97.8 Orders Orders Electrocardiogram (10/07/17 16:05) Ammonia (10/07/17 16:05) Complete Blood Count With Diff (10/07/17 16:05) Comprehensive Metabolic Panel (10/07/17 16:05) Creatine Kinase (Cpk) (10/07/17 16:05) Prothrombin Time / Inr (Pt) (10/07/17 16:05) Act Partial Throm Time (Ptt) (10/07/17 16:05) Troponin I (10/07/17 16:05) Urinalysis - C+S If Indicated (10/07/17 16:05) Lactic Acid Sepsis Protocol (10/07/17 16:05) Blood Culture (10/07/17 16:05) Chest, Single Ap (10/07/17 16:05) Ct Brain W/O Iv Contrast(Rout) (10/07/17 16:05) Blood Glucose (10/07/17 16:05) Ecg Monitoring (10/07/17 16:05) Iv Access Insert/Monitor (10/07/17 16:05) Cath For Specimen (10/07/17 16:05) Oximetry (10/07/17 16:05) Sodium Chloride 0.9% Flush (Ns Flush) (10/07/17 16:15) B-Type Natriuretic Peptide (10/07/17 16:22) Sodium Chlor 0.9% 1000 Ml Inj (Ns 1000 M (10/07/17 17:45) Vancomycin Inj (Vancomycin Inj) (10/07/17 17:40) Piperacil-Tazo 3.375 Gm Premix (Zosyn 3. (10/07/17 17:45) Sodium Chlorid 0.9% 500 Ml Inj (Ns 500 M (10/07/17 18:00) Admit Order (Ed Use Only) (10/07/17 17:56) Labs Laboratory Tests Test 10/07/17 16:30 White Blood Count 9.7 TH/MM3 Red Blood Count 2.99 MIL/MM3 Hemoglobin 9.4 GM/DL Hematocrit 28.4 % Mean Corpuscular Volume 94.9 FL Mean Corpuscular Hemoglobin 31.3 PG Mean Corpuscular Hemoglobin Concent 32.9 % Red Cell Distribution Width 16.7 % Platelet Count 342 TH/MM3 Mean Platelet Volume 7.0 FL Neutrophils (%) (Auto) 73.6 % Lymphocytes (%) (Auto) 17.9 % Monocytes (%) (Auto) 6.8 % Eosinophils (%) (Auto) 1.5 % Basophils (%) (Auto) 0.2 % Neutrophils # (Auto) 7.1 TH/MM3 Lymphocytes # (Auto) 1.7 TH/MM3 Monocytes # (Auto) 0.7 TH/MM3 Eosinophils # (Auto) 0.1 TH/MM3 Basophils # (Auto) 0.0 TH/MM3 CBC Comment DIFF FINAL Differential Comment Prothrombin Time 17.6 SEC Prothromb Time International Ratio 1.7 RATIO Activated Partial Thromboplast Time 40.1 SEC Blood Urea Nitrogen 55 MG/DL Creatinine 2.14 MG/DL Random Glucose 104 MG/DL Total Protein 7.2 GM/DL Albumin 2.5 GM/DL Calcium Level 8.4 MG/DL Alkaline Phosphatase 90 U/L Aspartate Amino Transf (AST/SGOT) 8 U/L Alanine Aminotransferase (ALT/SGPT) 13 U/L Total Bilirubin 0.5 MG/DL Sodium Level 143 MEQ/L Potassium Level 4.9 MEQ/L Chloride Level 110 MEQ/L Carbon Dioxide Level 24.6 MEQ/L Anion Gap 8 MEQ/L Estimat Glomerular Filtration Rate 22 ML/MIN Lactic Acid Level 1.6 mmol/L Ammonia 15 MCMOL/L Total Creatine Kinase 33 U/L Troponin I LESS THAN 0.02 NG/ML B-Type Natriuretic Peptide 142 PG/ML MDM Medical Decision Making Medical Screen Exam Complete: Yes Emergency Medical Condition: Yes Medical Record Reviewed: Yes Interpretation(s) chest x-ray - CONCLUSION: Interval development of extensive left base consolidation and effusion. CT brain - stable appearance with no acute hemorrhage or mass effect Differential Diagnosis Election abnormality versus dehydration versus pneumonia versus UTI versus sepsis versus intracranial abnormality Narrative Course 82-year-old female presents to the emergency department sent from nursing facility for evaluation of increased confusion, overall decline, decreased oral intake. EKG shows sinus rhythm, heart rate 73, no acute ST changes. CBC, CMP, CK, troponin, lactic acid, BNP, ammonia level, PTT, PT/INR, UA, blood cultures 2 are ordered and pending. Chest x-ray and CT of the brain are ordered and pending. CBC shows anemia hemoglobin 9.4, hematocrit 28.4. CMP shows elevated BUN and creatinine, 25/2.14. This is increased from labs on September 19 with a BUN of 22 and a creatinine of 0.93. CK is 33. Troponin is less than 0.02. Lactic acid is 1.6. BNP is 142. Ammonia level is 15. Coags show no acute abnormality. UA is pending. Chest x-ray shows interval development of extensive left base consolidation and effusion. CT of the brain shows no acute intracranial abnormality. Patient is given normal saline 500 mL bolus. She started on the vancomycin 1 g IV, Zosyn 3.[address] Campuzano accepted admission. Diagnosis Primary Impression: PNA (pneumonia) Qualified Codes: J69.0 - Pneumonitis due to inhalation of food and vomit Additional Impressions: JH (acute kidney injury) Altered mental status Qualified Codes: R41.82 - Altered mental status, unspecified Admitting Information Admitting Physician Requests: Admit Charlotte Erickson Oct 07, 2017 16:33
--- NOTE | 2017-10-07 17:00 | RADRPT ---
EXAM DATE/TIME: 10/07/2017 16:36 [facility] COMPARISON: CT BRAIN W/O CONTRAST, September 03, 2017, 1:14. INDICATIONS : Altered mental status. RADIATION DOSE: 56.35 CTDIvol (mGy) MEDICAL HISTORY : Hypertension. Chronic obstructive pulmonary disease. Emphysema. Skin cancer, cardiac. SURGICAL HISTORY : None. ENCOUNTER: Initial ACUITY: 1 day PAIN SCALE: 2/10 LOCATION: Bilateral cranial TECHNIQUE: Multiple contiguous axial images were obtained of the head. Using automated exposure control and adj ustment of the mA and/or kV according to patient size, radiation dose was kept as low as reasonably a chievable to obtain optimal diagnostic quality images. DICOM format image data is available electro nically for review and comparison. FINDINGS: CEREBRUM: The ventricles are normal for age with moderate atrophic change. Chronic small vessel ischemic change s are again noted. There are small lacunar infarcts in the right basal ganglia. No evidence of midlin e shift, mass lesion, hemorrhage or acute infarction. No extra-axial fluid collections are seen. POSTERIOR FOSSA: The cerebellum and brainstem are intact. The 4th ventricle is midline. The cerebellopontine angle i s unremarkable. EXTRACRANIAL: The visualized portion of the orbits is intact. SKULL: The calvaria is intact. No evidence of skull fracture. CONCLUSION: Stable appearance with no acute hemorrhage or mass effect. Haroon Lanier MD on October 07, 2017 at 16:56 Board Certified Radiologist. This report was verified electronically.
[2017-10-07] MEDS ORDERED: MIRT1TAB PO (17:01)
[2017-10-07] MEDS ORDERED: BUSP5TAB PO (17:01)
[2017-10-07] MEDS ORDERED: NON-325T6 PO (17:01)
[2017-10-07 17:12] LABS: AUTOMATED NEUTROPHIL # 7.1 TH/MM3 (1.8-7.7); BASOPHIL % 0.2 % (0.0-2.0); EOSINOPHIL # 0.1 TH/MM3 (0-0.4); EOSINOPHIL % 1.5 % (0.0-4.0); HEMATOCRIT 28.4 % (35.0-46.0); HEMOGLOBIN 9.4 GM/DL (11.6-15.3); LYMPH % 17.9 % (9.0-44.0); LYMPHOCYTE # 1.7 TH/MM3 (1.0-4.8); MEAN CELL VOLUME 94.9 FL (80.0-100.0); MEAN CORPUSCULAR HEMOGLOBIN 31.3 PG (27.0-34.0); MEAN CORPUSCULAR HGB CONC 32.9 % (32.0-36.0); MONO % 6.8 % (0.0-8.0); MONOCYTE # 0.7 TH/MM3 (0-0.9); NEUT % 73.6 % (16.0-70.0); PLATELET COUNT 342 TH/MM3 (150-450); RED BLOOD COUNT 2.99 MIL/MM3 (4.00-5.30); RED CELL DISTRIBUTION WIDTH 16.7 % (11.6-17.2); WHITE BLOOD COUNT 9.7 TH/MM3 (4.0-11.0)
[2017-10-07 17:31] LABS: INTERNATIONAL NORMALIZED RATIO 1.7 RATIO; PROTHROMBIN TIME - PATIENT 17.6 SEC (9.8-11.6)
[2017-10-07 17:37] LABS: ALBUMIN 2.5 GM/DL (3.4-5.0); AST (GOT) 8 U/L (15-37); BICARBONATE 24.6 MEQ/L (21.0-32.0); BLOOD UREA NITROGEN 55 MG/DL (7-18); CALCIUM 8.4 MG/DL (8.5-10.1); CHLORIDE 110 MEQ/L (98-107); CREATININE 2.14 MG/DL (0.50-1.00); GLOMERULAR FILTRATION RATE 22 ML/MIN (>89); GLUCOSE,RANDOM 104 MG/DL (74-106); SODIUM (NA) 143 MEQ/L (136-145)
[2017-10-07] MEDS ORDERED: VANCOMYCIN INJ 1 MG in SODIUM CHLOR 0.9% 250 ML INJ 250 ML IV STA (17:40)
--- NOTE | 2017-10-07 17:43 | PD ---
Data Data Last Documented VS Vital Signs Date Time Temp Pulse Resp B/P (MAP) Pulse Ox O2 Delivery O2 Flow Rate FiO2 10/07/17 17:01 15 96 Nasal Cannula 2.00 10/07/17 15:45 72 102/53 (69) 10/07/17 15:45 97.8 Orders Orders Electrocardiogram (10/07/17 16:05) Ammonia (10/07/17 16:05) Complete Blood Count With Diff (10/07/17 16:05) Comprehensive Metabolic Panel (10/07/17 16:05) Creatine Kinase (Cpk) (10/07/17 16:05) Prothrombin Time / Inr (Pt) (10/07/17 16:05) Act Partial Throm Time (Ptt) (10/07/17 16:05) Troponin I (10/07/17 16:05) Urinalysis - C+S If Indicated (10/07/17 16:05) Lactic Acid Sepsis Protocol (10/07/17 16:05) Blood Culture (10/07/17 16:05) Chest, Single Ap (10/07/17 16:05) Ct Brain W/O Iv Contrast(Rout) (10/07/17 16:05) Blood Glucose (10/07/17 16:05) Ecg Monitoring (10/07/17 16:05) Iv Access Insert/Monitor (10/07/17 16:05) Cath For Specimen (10/07/17 16:05) Oximetry (10/07/17 16:05) Sodium Chloride 0.9% Flush (Ns Flush) (10/07/17 16:15) B-Type Natriuretic Peptide (10/07/17 16:22) Sodium Chlor 0.9% 1000 Ml Inj (Ns 1000 M (10/07/17 17:45) Vancomycin Inj (Vancomycin Inj) (10/07/17 17:40) Piperacil-Tazo 3.375 Gm Premix (Zosyn 3. (10/07/17 17:45) Sodium Chlorid 0.9% 500 Ml Inj (Ns 500 M (10/07/17 18:00) Admit Order (Ed Use Only) (10/07/17 17:56) Labs Laboratory Tests Test 10/07/17 16:30 White Blood Count 9.7 TH/MM3 Red Blood Count 2.99 MIL/MM3 Hemoglobin 9.4 GM/DL Hematocrit 28.4 % Mean Corpuscular Volume 94.9 FL Mean Corpuscular Hemoglobin 31.3 PG Mean Corpuscular Hemoglobin Concent 32.9 % Red Cell Distribution Width 16.7 % Platelet Count 342 TH/MM3 Mean Platelet Volume 7.0 FL Neutrophils (%) (Auto) 73.6 % Lymphocytes (%) (Auto) 17.9 % Monocytes (%) (Auto) 6.8 % Eosinophils (%) (Auto) 1.5 % Basophils (%) (Auto) 0.2 % Neutrophils # (Auto) 7.1 TH/MM3 Lymphocytes # (Auto) 1.7 TH/MM3 Monocytes # (Auto) 0.7 TH/MM3 Eosinophils # (Auto) 0.1 TH/MM3 Basophils # (Auto) 0.0 TH/MM3 CBC Comment DIFF FINAL Differential Comment Prothrombin Time 17.6 SEC Prothromb Time International Ratio 1.7 RATIO Activated Partial Thromboplast Time 40.1 SEC Blood Urea Nitrogen 55 MG/DL Creatinine 2.14 MG/DL Random Glucose 104 MG/DL Total Protein 7.2 GM/DL Albumin 2.5 GM/DL Calcium Level 8.4 MG/DL Alkaline Phosphatase 90 U/L Aspartate Amino Transf (AST/SGOT) 8 U/L Alanine Aminotransferase (ALT/SGPT) 13 U/L Total Bilirubin 0.5 MG/DL Sodium Level 143 MEQ/L Potassium Level 4.9 MEQ/L Chloride Level 110 MEQ/L Carbon Dioxide Level 24.6 MEQ/L Anion Gap 8 MEQ/L Estimat Glomerular Filtration Rate 22 ML/MIN Lactic Acid Level 1.6 mmol/L Ammonia 15 MCMOL/L Total Creatine Kinase 33 U/L Troponin I LESS THAN 0.02 NG/ML B-Type Natriuretic Peptide 142 PG/ML [facility] Medical Record Reviewed: Yes Supervised Visit with SRIDEVI: Yes Narrative Course I, Dr. Martinez, have reviewed the advance practice practitioner's documentation and am in agreement, met with the patient face to face, made the diagnosis, and the medical decision making was done by me. *My assessment and Findings: Please refer to the mid-level note. The patient has pneumonia. Antibiotics started. Admission for IV antibiotics and physical therapy. Diagnosis Primary Impression: PNA (pneumonia) Qualified Codes: J69.0 - Pneumonitis due to inhalation of food and vomit Admitting Information Admitting Physician Requests: Admit Devin Martinez MD Oct 07, 2017 17:43
[2017-10-07 17:44] LABS: ALKALINE PHOSPHATASE 90 U/L (45-117); ALT (GPT) 13 U/L (10-53); TOTAL BILIRUBIN ADULT 0.5 MG/DL (0.2-1.0); TOTAL PROTEIN 7.2 GM/DL (6.4-8.2); TROPONIN I LESS THAN 0.02 NG/ML (0.02-0.05)
[2017-10-07] MEDS ORDERED: PIPERACIL-TAZO 3.375 GM PREMIX 50 ML IV ONE (17:45)
[2017-10-07] MEDS ORDERED: SODIUM CHLOR 0.9% 1000 ML INJ 1,000 ML IV ONE (17:45)
[2017-10-07] MEDS ORDERED: MAGNESIUM HYDROXIDE SUSP 30 ML CUP PO PRN (18:00)
[2017-10-07] MEDS ORDERED: ONDANSETRON HCL 4 MG/2 ML VIAL IVP PRN (18:00)
[2017-10-07] MEDS ORDERED: BISACODYL 10 MG SUPP RECTAL PRN (18:00)
[2017-10-07] MEDS ORDERED: LACTULOSE SYRUP 20 GM/30 ML CUP PO PRN (18:00)
[2017-10-07] MEDS ORDERED: SODIUM CHLORID 0.9% 500 ML INJ 500 ML IV ONE (18:00)
[2017-10-07] MEDS ORDERED: SENNOSIDES 8.6 MG TAB PO PRN (18:00)
[2017-10-07] MEDS ORDERED: HEPARIN SODIUM - SQ 10,000 UNITS/ML VIAL SQ SCH (18:00)
[2017-10-07] MEDS ORDERED: NALOXONE HCL 0.4 MG/ML AMP IV PUSH PRN (18:00)
[2017-10-07 19:02] VITALS: BP 99/51; PULSE 76; RESP 16; TEMP 97.6; O2SAT 88
[2017-10-07 19:23] VITALS: RESP 16; O2SAT 94
[2017-10-07 20:26] LABS: AMORPHOUS SEDIMENT, URINE OCC; BILIRUBIN, URINE NEG (NEG); BLOOD, URINE NEG (NEG); GLUCOSE,URINE NEG (NEG); HYALINE CAST, URINE 6 /lpf (RARE); KETONE, URINE NEG (NEG); MUCUS URINE FEW /lpf (OCC); NITRITE,URINE NEG (NEG); PH, URINE 5.5 (5.0-8.5); URINE COLOR YELLOW (YELLW/STRAW); URINE LEUKOCYTE ESTERASE NEG (NEG)
[2017-10-07] MEDS: SODIUM CHLORIDE 0.9% FLUSH 10 ML FLUSH IV FLUSH SCH (21:30)
[2017-10-07 22:00] VITALS: BP 95/51; PULSE 70; RESP 16; TEMP 97.8; O2SAT 92
[2017-10-07] MEDS: SODIUM CHLOR 0.9% 1000 ML INJ 1,000 ML IV SCH (22:10)
[2017-10-07 23:48] VITALS: PULSE 68
[2017-10-08] VITALS (10 sets, daily range): BP systolic 90–128; BP diastolic 53–94; PULSE 68–91; RESP 16–19; TEMP 97.3–98.2; O2SAT 72–93
--- NOTE | 2017-10-08 02:23 | HHI.HP ---
[facility] Service [facility] Primary Care Physician Endy Pugh MD Admission Diagnosis aspiration pneumonia, JH, confusion Diagnoses: Travel History International Travel<30 Days: No Contact w/Intl Traveler <30 Da: No Traveled to Known Affected Are: No History of Present Illness History from the ER notes, alf transfer notes, and review of medical records. Patient is extremely poor historian. She states that she may have fallen down. But she does not remember how long ago. She is noted to have multiple ecchymosis on her bilateral arms. Her left upper extremity is in a cast. Again she is not able to tell how this happened. Apart from the above, she denies any symptoms such as fevers/chest pain/nausea/ vomiting/diarrhea/blood in urine or blood in stool. She does however state that she thinks she may have been short of breath. Not able to qualify her symptoms better As per ER triage notes: PER JOCELYN AT [facility] PT HAS SUFFERED A GENERAL DECLINE OVER THE PAST SEVERAL DAYS TO WEEKS. PT NO LONGER WILLING TO TAKE PO FOOD/MEDS, PT MENTATION IS DECLINING-NO LONGER ABLE TO REORIENT PT. PT ALSO HAS HAD SPONTANEOUS BRUISING APPEAR BILATERAL ARMS/LEGS OVER THE PAST 3 DAYS Imaging study reports sent by alf: Chest x-ray. Bilateral prominent interstitial markings. Opacities in the left lung. Also opacities in the right lung. Large left pleural effusion. Bilateral pulmonary edema Right hand x-ray Possible nondisplaced fracture of the neck of second proximal phalanx there are no gross lytic or blastic lesions Right forearm: No acute fractures. No lytic or blastic lesions. Right elbow x-ray. No dislocation. No fracture. Fixation hardware is intact in the distal humerus. Per ER notes, nursing facility was worried that patient may have had aspiration. Patient is on Levaquin for pneumonia there. Patient was recently discharged from our hospital on September 20, 2017. At that time, she was managed for pneumonia. Review of Systems ROS Limitations: Altered Mental Status, Poor Historian Past Family Social History Past Medical History Hypertension COPD CHF Atrial fibrillation on Xarelto History of pneumonia Muscle weakness Dysphagia Pulmonary edema Anxiety Past Surgical History Right rotator cuff surgery Bilateral hip replacements Left knee surgery Skin cancer removed Allergies: Coded Allergies: codeine (Unverified Allergy, Severe, Itching, 09/02/17) Social History He is to smoke cigarettes, quit in 1966. No history of alcohol abuse or drug abuse. USP patient. She has a daughter who lives in [place]. That daughter is coming here in the morning. Physical Exam Vital Signs Vital Signs Date Time Temp Pulse Resp B/P (MAP) Pulse Ox O2 Delivery O2 Flow Rate FiO2 10/07/17 22:00 97.8 70 16 95/51 (66) 92 10/07/17 21:38 10/07/17 19:23 16 94 Nasal Cannula 4.00 10/07/17 19:02 97.6 76 16 99/51 (67) 88 Nasal Cannula 2.00 10/07/17 17:01 15 96 Nasal Cannula 2.00 10/07/17 15:45 72 102/53 (69) 10/07/17 15:45 97.8 72 15 102/53 (69) 92 10/07/17 15:45 97.8 72 15 102/53 (69) 95 Nasal Cannula 2.00 Physical Exam GENERAL: This is ultimately lady, thin, frail, not in acute distress SKIN: Multiple superficial large ecchymosis in bilateral arms. HEAD: Atraumatic. Normocephalic. No temporal or scalp tenderness. EYES: No scleral icterus. No injection or drainage. ENT: Nose without bleeding, purulent drainage or septal hematoma.ne. Airway patent. NECK: Trachea midline. Supple, nontender, no meningeal signs. CARDIOVASCULAR: Regular rate and rhythm without murmurs, gallops, or rubs. RESPIRATORY: Bilateral basilar crepitations coarse rales GASTROINTESTINAL: Abdomen soft, non-tender, nondistended. No guarding. MUSCULOSKELETAL: Extremities without clubbing, cyanosis, or edema.No calf tenderness. NEUROLOGICAL: Awake and alert. Motor and sensory grossly within normal limits Normal speech. Laboratory Laboratory Tests Test 10/07/17 16:30 10/07/17 19:19 White Blood Count 9.7 Red Blood Count 2.99 Hemoglobin 9.4 Hematocrit 28.4 Mean Corpuscular Volume 94.9 Mean Corpuscular Hemoglobin 31.3 Mean Corpuscular Hemoglobin Concent 32.9 Red Cell Distribution Width 16.7 Platelet Count 342 Mean Platelet Volume 7.0 Neutrophils (%) (Auto) 73.6 Lymphocytes (%) (Auto) 17.9 Monocytes (%) (Auto) 6.8 Eosinophils (%) (Auto) 1.5 Basophils (%) (Auto) 0.2 Neutrophils # (Auto) 7.1 Lymphocytes # (Auto) 1.7 Monocytes # (Auto) 0.7 Eosinophils # (Auto) 0.1 Basophils # (Auto) 0.0 CBC Comment DIFF FINAL Differential Comment Prothrombin Time 17.6 Prothromb Time International Ratio 1.7 Activated Partial Thromboplast Time 40.1 Blood Urea Nitrogen 55 Creatinine 2.14 Random Glucose 104 Total Protein 7.2 Albumin 2.5 Calcium Level 8.4 Alkaline Phosphatase 90 Aspartate Amino Transf (AST/SGOT) 8 Alanine Aminotransferase (ALT/SGPT) 13 Total Bilirubin 0.5 Sodium Level 143 Potassium Level 4.9 Chloride Level 110 Carbon Dioxide Level 24.6 Anion Gap 8 Estimat Glomerular Filtration Rate 22 Lactic Acid Level 1.6 Ammonia 15 Total Creatine Kinase 33 Troponin I LESS THAN 0.02 B-Type Natriuretic Peptide 142 Urine Color YELLOW Urine Turbidity HAZY Urine pH 5.5 Urine Specific [place] 1.013 Urine Protein 30 Urine Glucose (UA) NEG Urine Ketones NEG Urine Occult Blood NEG Urine Nitrite NEG Urine Bilirubin NEG Urine Urobilinogen LESS THAN 2.0 Urine Leukocyte Esterase NEG Urine WBC 1 Urine Amorphous Sediment OCC Urine Hyaline Casts 6 Urine Mucus FEW Microscopic Urinalysis Comment CATH-CULT NOT IND Date/Time Source Procedure Growth Status 10/07/17 16:30 Blood Peripheral Aerobic Blood Culture Pending Received 10/07/17 16:30 Blood Peripheral Anaerobic Blood Culture Pending Received Result Diagram: 10/07/17 1630 10/07/17 1630 Imaging Last [address] 10/07/17 1605 Signed Impressions: Service Date/Time: Saturday, October 07, 2017 16:36 - CONCLUSION: Stable appearance with no acute hemorrhage or mass effect. Haroon Lanier MD Chest X-Ray 10/07/17 1605 Signed Impressions: Service Date/Time: Saturday, October 07, 2017 16:17 - CONCLUSION: Interval development of extensive left base consolidation and effusion. MD Silver Hamm VTE Risk Assessment Silver VTE Risk Assessment: Mod/High Risk (score >= 2) Caprini Risk Assessment Model Point Value = 1 Point Value = 2 Point Value = 3 Point Value = 5 Age 41-60 Minor surgery BMI > 25 kg/m2 Swollen legs Varicose veins or History of unexplained or recurrent spontaneous Oral contraceptives or hormone replacement Sepsis (< 1 month) Serious lung disease, including pneumonia (< 1 month) Abnormal pulmonary function Acute myocardial infarction Congestive heart failure (< 1 month) History of inflammatory bowel disease Medical patient at bed rest Age 61-74 Arthroscopic surgery Major open surgery (> 45 min) Laparoscopic surgery (> 45 min) Malignancy Confined to bed (> 72 hours) Immobilizing plaster cast Central venous access Age >= 75 History of VTE Family history of VTE Factor V Leiden Prothrombin [id number] Lupus anticoagulant Anticardiolipin antibodies Elevated serum homocysteine Heparin-induced thrombocytopenia Other congenital or acquired thrombophilia Stroke (< 1 month) Elective arthroplasty Hip, pelvis, or leg fracture Acute spinal cord injury (< 1 month) Prophylaxis Regimen Total Risk Factor Score Risk Level Prophylaxis Regimen 0-1 Low Early ambulation 2 Moderate Order ONE of the following: *Sequential Compression Device (SCD) *Heparin 5000 units SQ BID 3-4 Higher Order ONE of the following medications: *Heparin 5000 units SQ TID *Enoxaparin/Lovenox 40 mg SQ daily (WT < 150 kg, CrCl > 30 mL/min) *Enoxaparin/Lovenox 30 mg SQ daily (WT < 150 kg, CrCl > 10-29 mL/min) *Enoxaparin/Lovenox 30 mg SQ BID (WT < 150 kg, CrCl > 30 mL/min) AND/OR *Sequential Compression Device (SCD) 5 or more Highest Order ONE of the following medications: *Heparin 5000 units SQ TID (Preferred with Epidurals) *Enoxaparin/Lovenox 40 mg SQ daily (WT < 150 kg, CrCl > 30 mL/min) *Enoxaparin/Lovenox 30 mg SQ daily (WT < 150 kg, CrCl > 10-29 mL/min) *Enoxaparin/Lovenox 30 mg SQ BID (WT < 150 kg, CrCl > 30 mL/min) AND *Sequential Compression Device (SCD) Assessment and Plan Assessment and Plan Impression: Bilateral large pleural effusions Pneumonia Generalized weakness/inability to eat. Likely from acute illness. Possible there is also dysphagia component. Possible aspiration per alf report Encephalopathy and acute. Likely secondary to acute illness with infection/ possible aspiration. Plan: Decrease IV fluids to 42 cc per hour. Chest ultrasound to better evaluate for pleural effusions. Patient received vancomycin and Zosyn in ER. We'll continue levofloxacin by mouth dosing. Speech and swallow evaluation. Head CT. Personally reviewed. No acute intracranial abnormality. Resume home meds. Hold sedatives and [employer]ATOR depressant medications. DVT prophylaxis with heparin. Discussed Condition With Patient, nursing staff Physician Certification 2 Midnight Certification Type: Admission for Inpatient Services Order for Inpatient Services The services are ordered in accordance with Medicare regulations or non- Medicare payer requirements, as applicable. In the case of services not specified as inpatient-only, they are appropriately provided as inpatient services in accordance with the 2-midnight benchmark. Estimated LOS (days): 2 days is the estimated time the patient will need to remain in the hospital, assuming treatment plan goals are met and no additional complications. Post-Hospital Plan: [facility] Tatyana López MD Oct 08, 2017 02:23
[2017-10-08 10:20] LABS: AUTOMATED NEUTROPHIL # 7.9 TH/MM3 (1.8-7.7); BASOPHIL % 0.3 % (0.0-2.0); EOSINOPHIL # 0.2 TH/MM3 (0-0.4); EOSINOPHIL % 2.1 % (0.0-4.0); HEMATOCRIT 25.9 % (35.0-46.0); HEMOGLOBIN 8.6 GM/DL (11.6-15.3); LYMPHOCYTE # 1.6 TH/MM3 (1.0-4.8); MEAN CELL VOLUME 94.9 FL (80.0-100.0); MEAN CORPUSCULAR HEMOGLOBIN 31.5 PG (27.0-34.0); MEAN CORPUSCULAR HGB CONC 33.2 % (32.0-36.0); MEAN PLATELET VOLUME 6.9 FL (7.0-11.0); MONO % 6.7 % (0.0-8.0); MONOCYTE # 0.7 TH/MM3 (0-0.9); NEUT % 75.9 % (16.0-70.0); PLATELET COUNT 302 TH/MM3 (150-450); RED BLOOD COUNT 2.73 MIL/MM3 (4.00-5.30); RED CELL DISTRIBUTION WIDTH 16.7 % (11.6-17.2); WHITE BLOOD COUNT 10.4 TH/MM3 (4.0-11.0)
[2017-10-08 10:38] LABS: BICARBONATE 22.3 MEQ/L (21.0-32.0); CREATININE 1.76 MG/DL (0.50-1.00)
[2017-10-08] MEDS: SODIUM CHLOR 0.9% 1000 ML INJ 1,000 ML IV SCH (10:40)
--- NOTE | 2017-10-08 10:46 | RADRPT ---
EXAM DATE/TIME: 10/08/2017 08:18 [facility] COMPARISON: No previous studies available for comparison. INDICATIONS : Left pleural effusion. MEDICAL HISTORY : Congestive heart failure. Emphysema. Arthritis. Afib. HTN. COPD. Pneumonia. Dyspnea. GERD. Torn right rotator cuff. Skin cancer. Depression. Anxiety. SURGICAL HISTORY : Tonsillectomy. Bilateral hip replacement. Left knee surgery. ENCOUNTER: Initial ACUITY: 1 day PAIN SCORE: 0/10 LOCATION: Left chest MEASUREMENTS: SKIN TO PARIETAL PLEURA: 1.5 cm SKIN TO MAX SAFE DEPTH: 3.2 cm ESTIMATED FLUID VOLUME: 659.95 cc FLUID COMPOSITION: simple FINDINGS: Pleural effusion as above. A cassi was placed on the skin surface superficial to the pleural fluid col lection. CONCLUSION: Left pleural effusion as described above. Garett Howell MD on October 08, 2017 at 10:43 Board Certified Radiologist. This report was verified electronically.
[2017-10-08] MEDS: FOLIC ACID 1 MG TAB PO SCH (11:54)
[2017-10-08] MEDS: POTASSIUM CHLORIDE 10 MEQ CONTROLLED RELEASE TAB PO SCH (11:54)
[2017-10-08] MEDS: CYANOCOBALAMIN 1,000 MCG TAB PO SCH (11:54)
[2017-10-08] MEDS: LEVOFLOXACIN 750 MG TAB PO SCH (11:54)
[2017-10-08] MEDS: busPIRone HCL 5 MG TAB PO SCH ×2 (11:54→21:01)
[2017-10-08] MEDS: RIVAROXABAN 20 MG TAB PO SCH (11:55)
[2017-10-08] MEDS: SODIUM CHLORIDE 0.9% FLUSH 10 ML FLUSH IV FLUSH SCH ×2 (11:55→21:00)
--- NOTE | 2017-10-08 12:07 | HHI.PR ---
Objective Vitals Vital Signs Date Time Temp Pulse Resp B/P (MAP) Pulse Ox O2 Delivery O2 Flow Rate FiO2 10/08/17 05:01 Nasal Cannula 4.00 10/08/17 04:00 98.0 91 16 128/94 (105) 72 10/08/17 03:47 68 10/08/17 00:00 97.4 78 16 98/58 (71) 92 10/07/17 23:48 68 10/07/17 22:00 97.8 70 16 95/51 (66) 92 10/07/17 21:38 10/07/17 19:23 16 94 Nasal Cannula 4.00 10/07/17 19:02 97.6 76 16 99/51 (67) 88 Nasal Cannula 2.00 10/07/17 17:01 15 96 Nasal Cannula 2.00 10/07/17 15:45 72 102/53 (69) 10/07/17 15:45 97.8 72 15 102/53 (69) 92 10/07/17 15:45 97.8 72 15 102/53 (69) 95 Nasal Cannula 2.00 I/O 10/07/17 10/07/17 10/07/17 10/08/17 10/08/17 10/08/17 07:00 15:00 23:00 07:00 15:00 23:00 Intake Total 800 ml 472 ml Balance 800 ml 472 ml Intake IV Total 800 ml 472 ml Result Diagram: 10/08/17 0844 10/08/17 0844 Darien Wiseman MD Oct 08, 2017 12:07
[2017-10-08] MEDS: LATANOPROST 0.005% OPHT SOLN 2.5 ML BTL EACH EYE SCH (21:01)
--- NOTE | 2017-10-08 22:04 | EKG ---
Date Performed: 10/07/2017 Time Performed: 16:25:55 PTAGE: 82 years EKG: ATRIAL FIBRILLATION NONSPECIFIC T-WAVE ABNORMALITY ABNORMAL ECG PREVIOUS TRACING : 09/14/2017 20.30 Compared to the previous tracing rate slower DOCTOR: Kirsten Rueda Interpretating Date/Time 10/08/2017 22:02:52
[2017-10-09] VITALS (11 sets, daily range): BP systolic 86–118; BP diastolic 38–57; PULSE 57–75; RESP 16–23; TEMP 97.1–98.6; O2SAT 90–97
--- NOTE | 2017-10-09 02:09 | HHI.PR ---
Addendum to Inpatient Note Addendum Reason: Additional Documentation Additional Information Deferred entry - patient seen at 11;40 am on 10/08/17 Patient is very confused. Daughter is at bedside. O2 sats recorded at 72%. Patient awake and alert but confused. Lungs show diminished air entry on left hemithorax. US of chest showed moderate to arge left pleural effusion - ordered us guided thoracentesis. Will hold Xarelto. Darien Wiseman MD Oct 09, 2017 02:09
[2017-10-09] MEDS: FOLIC ACID 1 MG TAB PO SCH (08:10)
[2017-10-09] MEDS: ACETAMINOPHEN 325 MG TAB PO PRN (08:10)
[2017-10-09] MEDS: POTASSIUM CHLORIDE 10 MEQ CONTROLLED RELEASE TAB PO SCH (08:10)
[2017-10-09] MEDS: CYANOCOBALAMIN 1,000 MCG TAB PO SCH (08:11)
[2017-10-09] MEDS: busPIRone HCL 5 MG TAB PO SCH ×2 (08:11→22:08)
[2017-10-09] MEDS: SODIUM CHLORIDE 0.9% FLUSH 10 ML FLUSH IV FLUSH SCH ×2 (08:11→22:08)
--- NOTE | 2017-10-09 12:18 | RADRPT ---
EXAM DATE/TIME: 10/09/2017 11:13 [facility] COMPARISON: CHEST SINGLE AP, October 07, 2017, 16:17. INDICATIONS : Post left side thoracentesis. MEDICAL HISTORY : Congestive heart failure. Emphysema. Arthritis. Afib. HTN. COPD. Pneumonia. SURGICAL HISTORY : Tonsillectomy. Bilateral hip replacement. Left knee surgery. ENCOUNTER: Subsequent ACUITY: 1 day PAIN SCORE: 0/10 LOCATION: Bilateral chest FINDINGS: A single frontal expiratory view of the chest was performed. There is much better aeration of the le ft lung base. I don't see any visible pneumothorax. Small consolidation remains in the right lower lo be.. No evidence of pneumothorax. Mediastinal structures are in the midline. The cardio-mediastinal contours and bronchopulmonary markings are unremarkable for an expiratory exam . Osseous structures are intact. There is a pronounced rightward thoracic scoliosis CONCLUSION: Better aeration left lung base. No visible pneumothorax. Status post thoracentesis. Roque Vargas MD on October 09, 2017 at 12:14 Board Certified Radiologist. This report was verified electronically.
--- NOTE | 2017-10-09 12:19 | RADRPT ---
EXAM DATE/TIME: 10/09/2017 09:59 [facility] COMPARISON: No previous studies available for comparison. INDICATIONS : Left pleural effusion. MEDICAL HISTORY : Congestive heart failure. Emphysema. Arthritis. Afib. HTN. COPD. Pneumonia. Dyspnea. GERD. Torn right rotator cuff. Skin cancer. Depression. Anxiety. SURGICAL HISTORY : Tonsillectomy. Bilateral hip replacement. Left knee surgery. ENCOUNTER: Initial ACUITY: 1 day PAIN SCORE: 0/10 LOCATION: Left chest FLUID: Total volume of 950 cc of anthony fluid was removed. Fluid was sent to lab for ordered studies. TECHNIQUE: 1. Ultrasound guidance for thoracentesis. 2. Thoracentesis. The risks, benefits, and alternatives to ultrasound guided thoracentesis were explained to the patien t in lay simple terms, including the risk of bleeding and infection. Written and verbal informed con sent was obtained. Appropriate area for thoracentesis was marked under ultrasound guidance with the patient in the uprig ht position. Overlying skin was prepped and draped in the usual sterile fashion and with local anest hetic, a dermatotomy was made with an 11 blade scalpel. A 6 Scottish thoracentesis catheter was placed in the pleural space and fluid was removed. Catheter was then removed and a sterile dressing applie d. There were no immediate complications. The patient tolerated the procedure well and the left the ultrasound suite in stable condition. Chest radiograph is to be obtained. CONCLUSION: Uncomplicated ultrasound guided thoracentesis. Garett Howell MD on October 09, 2017 at 12:16 Board Certified Radiologist. This report was verified electronically.
[2017-10-09 13:03] LABS: PLEURAL FLUID BASO 3 %; PLEURAL FLUID EOS 2 %; PLEURAL FLUID LYMPHS 33 %; PLEURAL FLUID MONOS 3 %; PLEURAL FLUID POLYS (SEGS) 59 %; PLEURAL FLUID RBC 3211 /MM3 (0-0); PLEURAL FLUID WBC 460 /MM3 (0-10)
--- NOTE | 2017-10-09 19:25 | HHI.PR ---
Subjective Remarks sp left thoracentesis. Sob is improving. Denies cp. Had to be placed on a nonrebreather this am, now on nasal canula. Objective Vitals Vital Signs Date Time Temp Pulse Resp B/P (MAP) Pulse Ox O2 Delivery O2 Flow Rate FiO2 10/09/17 16:00 97.6 70 18 104/54 (71) 90 10/09/17 15:00 70 10/09/17 12:00 97.6 73 18 98/57 (71) 91 10/09/17 11:40 97.6 75 16 90/54 (66) 97 10/09/17 11:30 Non-Rebreather 6.00 10/09/17 11:25 97.6 75 16 86/44 (58) 90 10/09/17 10:55 97.1 74 20 108/38 (61) 10/09/17 09:10 18 10/09/17 08:00 95 Nasal Cannula 3.00 10/09/17 08:00 97.7 72 18 118/54 (75) 95 10/09/17 07:00 69 10/09/17 04:00 97.5 72 20 98/57 (71) 92 10/09/17 00:00 97.5 71 20 98/52 (67) 92 10/09/17 00:00 70 10/08/17 20:30 Room Air 10/08/17 20:00 98.2 68 16 90/53 (65) 93 I/O 10/08/17 10/08/17 10/08/17 10/09/17 10/09/17 10/09/17 07:00 15:00 23:00 07:00 15:00 23:00 Intake Total 472 ml 240 ml 120 ml 1015 ml Output Total 401 ml Balance 472 ml 240 ml 120 ml 614 ml Intake Oral 240 ml 120 ml 1015 ml IV Total 472 ml Output Urine Total 400 ml Stool Total 1 ml # Voids 4 2 2 # Bowel Movements 1 0 0 Result Diagram: 10/08/1744 10/08/17 0844 Imaging Last Impressions Thoracentesis Ultrasound 10/09/17 0000 Signed Impressions: Service Date/Time: September 09:59 - CONCLUSION: Uncomplicated ultrasound guided thoracentesis. Garett Howell MD Chest X-Ray 10/09/17 0000 Signed Impressions: Service Date/Time: September 11:13 - CONCLUSION: Better aeration left lung base. No visible pneumothorax. Status post thoracentesis. Roque Vargas MD Chest Ultrasound 10/08/17 0000 Signed Impressions: Service Date/Time: Sunday, October 08, 2017 08:18 - CONCLUSION: Left pleural effusion as described above. Garett Howell MD Head CT 10/07/17 1605 Signed Impressions: Service Date/Time: Saturday, October 07, 2017 16:36 - CONCLUSION: Stable appearance with no acute hemorrhage or mass effect. Haroon Lanier MD Objective Remarks GENERAL: Cachectic thin female. Not in acute distress. SKIN: Warm and dry. HEAD: Normocephalic. EYES: No scleral icterus. No injection or drainage. NECK: Supple, trachea midline. No JVD or lymphadenopathy. CARDIOVASCULAR: Regular rate and rhythm without murmurs, gallops, or rubs. RESPIRATORY: Breath sounds equal bilaterally but decreased at the bases. No wheezing or rhonchi auscultated. GASTROINTESTINAL: Abdomen soft, non-tender, nondistended. MUSCULOSKELETAL: No cyanosis, or edema. BACK: Nontender without obvious deformity. No CVA tenderness. Medications and IVs Current Medications Medications (Trade) Dose Ordered Sig/Herlinda Route Start Time Stop Time Status Last Admin (NS Flush) 2 ml UNSCH PRN IV FLUSH 10/07/17 16:15 Sodium Chloride 1,000 ml @ 42 mls/hr [id number] IV 10/07/17 17:55 10/08/17 10:40 (NS Flush) 2 ml UNSCH PRN IV FLUSH 10/07/17 18:00 (NS Flush) 2 ml BID IV FLUSH 10/07/17 21:00 10/08/17 11:55 (Tylenol) 650 mg Q4H PRN PO 10/07/17 18:00 10/09/17 08:10 (Zofran Inj) 4 mg Q6H PRN IVP 10/07/17 18:00 (Narcan Inj) 0.4 mg UNSCH PRN IV PUSH 10/07/17 18:00 (Milk Of Magnesia Liq) 30 ml Q12H PRN PO 10/07/17 18:00 (Senokot) 17.2 mg Q12H PRN PO 10/07/17 18:00 (Dulcolax Supp) 10 mg DAILY PRN RECTAL 10/07/17 18:00 (Lactulose Liq) 30 ml DAILY PRN PO 10/07/17 18:00 (Levaquin) 750 mg Q48H PO 10/08/17 09:00 10/08/17 11:54 (Norvasc) 10 mg DAILY PO 10/08/17 09:00 10/09/17 08:10 (Buspar) 5 mg BID PO 10/08/17 09:00 10/09/17 08:11 (Vitamin B12) 1,000 mcg DAILY PO 10/08/17 09:00 10/09/17 08:11 (Folate) 1 mg DAILY PO 10/08/17 09:00 10/09/17 08:10 (Xalatan 0.005% Opth Soln) 1 drop HS EACH EYE 10/08/17 21:00 10/08/17 21:01 (KCl) 10 meq DAILY PO 10/08/17 09:00 10/09/17 08:10 (Xarelto) 20 mg DAILY PO 10/08/17 09:00 Future Hold 10/08/17 11:55 A/P Problem List: (1) Acute hypoxemic respiratory failure ICD Code: J96.01 - Acute respiratory failure with hypoxia Plan: The patient was admitted to the medical floor Chest x-ray on admission and reviewed by me showed diffuse increased interstitial markings likely related to edema. There was also some accompanying atelectasis or consolidation at the lung bases and lateral right upper lung. The patient was started on IV Levaquin. I will add IV Flagyl and IV vancomycin to cover for hospital-acquired pneumonia and possible aspiration pneumonia as well. Will check streptococcal pneumonia antigen and Legionella urine antigen if not previously done. The patient was ventilated by speech therapy. Patient initially placed nothing by mouth for question of aspiration at half-way. The patient able to have a mechanical soft diet. (2) Pneumonia ICD Code: J18.9 - Pneumonia, unspecified organism Status: Acute Plan: As above. Continue supplemental oxygen to keep oxygen saturation more than 92%. (3) JH (acute kidney injury) ICD Code: N17.9 - Acute kidney failure, unspecified Plan: Creatinine 2.14 on admission. Lasix held. Creatinine trending down to 1.76 on 10/08. Likely due to prerenal septemia. Creatinine improving with IV fluids, continue with gentle IV fluids. Continue to monitor BUN and creatinine, strict I's and O 's and avoid nephrotoxins. (4) Metabolic encephalopathy ICD Code: G93.41 - Metabolic encephalopathy Plan: Likely related to sepsis due to pneumonia. (5) Pleural effusion on left ICD Code: J90 - Pleural effusion, not elsewhere classified Status: Acute Plan: As shown on chest x-ray described above. The patient status post ultrasound-guided thoracentesis with extraction of 950 cc of anthony fluid. Likely related to parapneumonic effusion. Continue IV antibiotics as above. (6) A-fib ICD Code: I48.91 - Unspecified atrial fibrillation Status: Chronic Plan: Xarelto was held for procedure. Will resume Xarelto today. Rate is controlled. BP borderline low for antihypertensive medication. (7) Hypotension ICD Code: I95.9 - Hypotension, unspecified Plan: The patient was hypotensive overnight with a blood pressures levels as 86 /44. I will hold antihypertensive medications and continue to monitor vital signs. If needed may give small IV fluid boluses. Assessment and Plan DVT prophylaxis: SCDs, will resume Xarelto. Discharge Planning Pending clinical improvement. The patient is still on elevated levels of oxygen. I will order PT eval and treat. Problem Qualifiers (1) Pneumonia: (2) A-fib: Qualified Codes: I48.1 - Persistent atrial fibrillation (3) Hypotension: Qualified Codes: I95.9 - Hypotension, unspecified Darien Wiseman MD Oct 09, 2017 19:25
[2017-10-09] MEDS ORDERED: PILL SPLITTER OTHER PRN (20:00)
[2017-10-09] MEDS: LATANOPROST 0.005% OPHT SOLN 2.5 ML BTL EACH EYE SCH (22:08)
[2017-10-09] MEDS: metroNIDAZOLE 500 MG INJ 100 ML IV SCH (22:08)
[2017-10-09] MEDS: MIRTAZAPINE 15 MG TAB PO SCH (22:08)
[2017-10-09] MEDS: SODIUM CHLOR 0.9% 1000 ML INJ 1,000 ML IV SCH (22:09)
[2017-10-10] VITALS (9 sets, daily range): BP systolic 87–166; BP diastolic 52–57; PULSE 67–79; RESP 18–26; TEMP 97.3–98.1; O2SAT 90–98
[2017-10-10] MEDS: metroNIDAZOLE 500 MG INJ 100 ML IV SCH ×3 (04:28→17:13)
[2017-10-10] MEDS: SODIUM CHLORIDE 0.9% FLUSH 10 ML FLUSH IV FLUSH SCH ×2 (08:29→23:22)
[2017-10-10] MEDS: busPIRone HCL 5 MG TAB PO SCH ×2 (08:30→23:21)
[2017-10-10] MEDS: RIVAROXABAN 20 MG TAB PO SCH (08:30)
[2017-10-10] MEDS: POTASSIUM CHLORIDE 10 MEQ CONTROLLED RELEASE TAB PO SCH (08:30)
[2017-10-10] MEDS: LEVOFLOXACIN 750 MG TAB PO SCH (08:30)
[2017-10-10] MEDS: CYANOCOBALAMIN 1,000 MCG TAB PO SCH (08:30)
[2017-10-10] MEDS: FOLIC ACID 1 MG TAB PO SCH (08:30)
[2017-10-10 10:27] LABS: AUTOMATED NEUTROPHIL # 9.6 TH/MM3 (1.8-7.7); BASOPHIL % 0.3 % (0.0-2.0); EOSINOPHIL # 0.2 TH/MM3 (0-0.4); EOSINOPHIL % 1.8 % (0.0-4.0); HEMOGLOBIN 8.1 GM/DL (11.6-15.3); LYMPH % 10.8 % (9.0-44.0); LYMPHOCYTE # 1.3 TH/MM3 (1.0-4.8); MEAN CELL VOLUME 95.3 FL (80.0-100.0); MEAN CORPUSCULAR HGB CONC 32.5 % (32.0-36.0); MEAN PLATELET VOLUME 7.1 FL (7.0-11.0); MONO % 6.2 % (0.0-8.0); MONOCYTE # 0.7 TH/MM3 (0-0.9); NEUT % 80.9 % (16.0-70.0); PLATELET COUNT 227 TH/MM3 (150-450); RED BLOOD COUNT 2.63 MIL/MM3 (4.00-5.30); RED CELL DISTRIBUTION WIDTH 16.5 % (11.6-17.2); WHITE BLOOD COUNT 11.9 TH/MM3 (4.0-11.0)
[2017-10-10 10:53] LABS: ALT (GPT) 10 U/L (10-53); AST (GOT) 9 U/L (15-37); BICARBONATE 23.5 MEQ/L (21.0-32.0); BLOOD UREA NITROGEN 47 MG/DL (7-18); CALCIUM 7.8 MG/DL (8.5-10.1); CHLORIDE 119 MEQ/L (98-107); CREATININE 1.57 MG/DL (0.50-1.00); GLOMERULAR FILTRATION RATE 31 ML/MIN (>89); GLUCOSE,RANDOM 105 MG/DL (74-106); MAGNESIUM 2.5 MG/DL (1.5-2.5); PHOSPHORUS 2.2 MG/DL (2.5-4.9); SODIUM (NA) 149 MEQ/L (136-145)
[2017-10-10 11:02] LABS: ALKALINE PHOSPHATASE 77 U/L (45-117); TOTAL BILIRUBIN ADULT 0.7 MG/DL (0.2-1.0)
--- NOTE | 2017-10-10 12:37 | PD.PN.STU ---
Subjective Remarks Patient is an 82 y/o female with history of HTN, COPD, CHF, and fib on HD 3 who was admitted for possible aspiration pneumonia and acute respiratory distress. Patient is being treated with metronidazole, levofloxacin. Patient today complains of worsening SOB, cough, and a headache. Patient expresses fatigue. Patient denies fever chills nausea, vomiting, or diarrhea. Per nurse patient was having difficulty breathing and maintaing O2 sat. WAs put on nonreabreather breifly but now on canula 5L Objective Vitals Vital Signs Date Time Temp Pulse Resp B/P (MAP) Pulse Ox O2 Delivery O2 Flow Rate FiO2 10/10/17 12:13 Nasal Cannula 5.00 90 10/10/17 09:42 Nasal Cannula 4.00 10/10/17 08:00 97.6 75 26 166/56 (92) 91 10/10/17 04:00 98.1 70 23 97/54 (68) 98 10/10/17 04:00 67 10/10/17 00:00 67 10/10/17 00:00 98.0 70 22 103/55 (71) 93 10/09/17 20:00 98.6 57 23 102/52 (69) 93 10/09/17 16:00 97.6 70 18 104/54 (71) 90 10/09/17 15:00 70 I/O 10/09/17 10/09/17 10/09/17 10/10/17 10/10/17 10/10/17 07:00 15:00 23:00 07:00 15:00 23:00 Intake Total 120 ml 2014 ml 180 ml Output Total 401 ml Balance 120 ml 1613 ml 180 ml Intake Oral 120 ml 1015 ml 180 ml IV Total 999 ml Output Urine Total 400 ml Stool Total 1 ml # Voids 2 2 3 # Bowel Movements 0 0 0 Result Diagram: 10/10/1792210/10/17922 Objective Remarks GENERAL: Pleasant female. thin; mildly ill appearing. sleepy SKIN: Warm and dry. HEAD: Normocephalic. EYES: No scleral icterus. No injection or drainage. NECK: Supple, trachea midline. No JVD or lymphadenopathy. CARDIOVASCULAR: Regular rate with irregular rhythm RESPIRATORY: Diminished breath sounds on L compared to R. Mild wheezing R GASTROINTESTINAL: Abdomen soft, non-tender, nondistended. MUSCULOSKELETAL: No cyanosis, or edema. BACK: Nontender without obvious deformity. No CVA tenderness. A/P Assessment and Plan 82 year old female with history of HTN COPD CHF and A Fib was admitted for possible aspiration pneumonia and acute respiratory failure 1) Hypoxia 2/2 acute respiratory failure - patient is having more difficulty maintaining O2 sats. Diminished breath sounds on L. Will order CXR STAT to assess status. COntinue to monitor O2 sat and supplement O2 as needed. 2) Pneumonia - will add zozyn to antibiotic coverage 3) JH - most likely due to septicemia. Cr and Bun continue to be increased but stable. 4) Metabolic Encephalopathy - cognition appears to be improved. but baseline is unknown 5) PE - s/p thoracentesis. results showed 950 mL of mainly RBC's. noninfectious. 6) A Fib - xarelto was resumed for anticoagulation for procedure. Rate is controlled 7) HTN - will restart on home medication of amlodipine 10 mg PO qd Nazario Landrum M3 Oct 10, 2017 12:37
--- NOTE | 2017-10-10 12:41 | PD.ORT.PN ---
Subjective Subjective Remarks Patient resting comfortably this morning. Denies significant shortness of breath or chest pain. Reports she's had the splint on her left wrist since surgery. Denies any significant discomfort. Denies numbness and tingling. Objective Vitals Vital Signs Date Time Temp Pulse Resp B/P (MAP) Pulse Ox O2 Delivery O2 Flow Rate FiO2 10/10/17 12:13 Nasal Cannula 5.00 90 10/10/17 09:42 Nasal Cannula 4.00 10/10/17 08:00 97.6 75 26 166/56 (92) 91 10/10/17 04:00 98.1 70 23 97/54 (68) 98 10/10/17 04:00 67 10/10/17 00:00 67 10/10/17 00:00 98.0 70 22 103/55 (71) 93 10/09/17 20:00 98.6 57 23 102/52 (69) 93 10/09/17 16:00 97.6 70 18 104/54 (71) 90 10/09/17 15:00 70 I/O 10/09/17 10/09/17 10/09/17 10/10/17 10/10/17 10/10/17 07:00 15:00 23:00 07:00 15:00 23:00 Intake Total 120 ml 2014 ml 180 ml Output Total 401 ml Balance 120 ml 1613 ml 180 ml Intake Oral 120 ml 1015 ml 180 ml IV Total 999 ml Output Urine Total 400 ml Stool Total 1 ml # Voids 2 2 3 # Bowel Movements 0 0 0 Result Diagram: 10/10/1792210/10/17922 Objective Remarks Awake, alert, no acute distress Nonlabored respirations Left upper extremity: Splint removed. Incision healing well without signs of infection. Sutures still in place. Small skin tear on dorsum of hand is healing well. Patient does not complete full neuro exam but does spontaneously move fingers without difficulty. Reports sensation is intact. Radial pulse palpable. Assessment & Plan Assessment and Plan Patient is 82-year-old female who is now partially three-week status post open reduction internal fixation of her left distal radius fracture. Patient was supposed follow-up in my office today. 1. Splint removed. I will ask nursing staff to remove sutures as incision is healing well. Steri-Strips should be placed. 2. X-rays have been obtained of the left wrist. 3. I will see [facility] to place a new volar splint. 4. Ortho stable. Patient can follow-up in my office in approximately 3 weeks Adeola Land MD Oct 10, 2017 12:41
--- NOTE | 2017-10-10 12:53 | RADRPT ---
EXAM DATE/TIME: 10/10/2017 12:27 [facility] COMPARISON: CHEST SINGLE AP, October 07, 2017, 16:17. INDICATIONS : Shortness of breath. MEDICAL HISTORY : Congestive heart failure. Emphysema. Arthritis. Afib. HTN. COPD. Pneumonia. SURGICAL HISTORY : Tonsillectomy. Bilateral hip replacement. Left knee surgery. ENCOUNTER: Initial ACUITY: 1 day PAIN SCORE: 0/10 LOCATION: Bilateral chest FINDINGS: There is global cardiomegaly. Bilateral effusions and basilar airspace disease, left greater than rig ht similar to October 07. No pneumothorax. Previous fixation right humerus. CONCLUSION: 1. Relatively stable changes of cardiomegaly, basilar airspace disease and bilateral effusions. Diffe rential diagnosis includes congestive heart failure, possibly with superimposed infection or aspirati on. Henrry Martínez MD on October 10, 2017 at 12:50 Board Certified Radiologist. This report was verified electronically.
--- NOTE | 2017-10-10 12:57 | RADRPT ---
EXAM DATE/TIME: 10/10/2017 12:34 [facility] COMPARISON: WRIST LEFT COMPLETE ([id number]), September 03, 2017, 2:25. INDICATIONS : Three week post operative wrist. MEDICAL HISTORY : Congestive heart failure. Emphysema. Arthritis. Afib. HTN. COPD. Pneumonia. Dyspnea. GERD. Torn right rotator cuff. Skin cancer. Depression. Anxiety. SURGICAL HISTORY : Tonsillectomy. Bilateral hip replacement. Left knee surgery. ENCOUNTER: Subsequent ACUITY: 3 weeks PAIN SCORE: 0/10 LOCATION: Left wrist FINDINGS: There is plate and screw fixation of a fracture through the distal radius with mild residual displace ment. Ulnar styloid fracture also present. 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 CONCLUSION: 1. Fixation distal left radius. No complications identified. Henrry Martínez MD on October 10, 2017 at 12:53 Board Certified Radiologist. This report was verified electronically.
[2017-10-10] MEDS ORDERED: VANCOMYCIN INJ 200 ML IV SCH (14:00)
[2017-10-10] MEDS ORDERED: FUROSEMIDE 40 MG/4 ML VIAL IV PUSH ONE (14:30)
[2017-10-10] MEDS ORDERED: VANCOMYCIN 1,000 MG/NS 250 ML IV SCH ×2 (15:00)
--- NOTE | 2017-10-10 18:48 | HHI.PR ---
Subjective Remarks Deferred entry - patient seen at 12:30 pm Patient on moderate respiratory distress, tachypneic. Denies cp, c/o sob Denies fevers or chills states does not feel to well. Patient on 5 L nasal cannula. Objective Vitals Vital Signs Date Time Temp Pulse Resp B/P (MAP) Pulse Ox O2 Delivery O2 Flow Rate FiO2 10/10/17 12:13 Nasal Cannula 5.00 90 10/10/17 12:00 97.3 74 22 97/57 (70) 91 10/10/17 09:42 Nasal Cannula 4.00 10/10/17 08:00 97.6 75 26 166/56 (92) 91 10/10/17 04:00 98.1 70 23 97/54 (68) 98 10/10/17 04:00 67 10/10/17 00:00 67 10/10/17 00:00 98.0 70 22 103/55 (71) 93 10/09/17 20:00 98.6 57 23 102/52 (69) 93 I/O 10/09/17 10/09/17 10/09/17 10/10/17 10/10/17 10/10/17 07:00 15:00 23:00 07:00 15:00 23:00 Intake Total 120 ml 2014 ml 180 ml Output Total 401 ml Balance 120 ml 1613 ml 180 ml Intake Oral 120 ml 1015 ml 180 ml IV Total 999 ml Output Urine Total 400 ml Stool Total 1 ml # Voids 2 2 3 # Bowel Movements 0 0 0 Result Diagram: 10/10/17 0923 10/10/17 0923 Imaging Last Impressions Wrist X-Ray 10/10/17 0000 Signed Impressions: Service Date/Time: Tuesday, October 10, 2017 12:34 - CONCLUSION: 1. Fixation distal left radius. No complications identified. Henrry Martínez MD Chest X-Ray 10/10/17 0000 Signed Impressions: Service Date/Time: Tuesday, October 10, 2017 12:27 - CONCLUSION: 1. Relatively stable changes of cardiomegaly, basilar airspace disease and bilateral effusions. Differential diagnosis includes congestive heart failure, possibly with superimposed infection or aspiration. Henrry Martínez MD Thoracentesis Ultrasound 10/09/17 0000 Signed Impressions: Service Date/Time: September 09:59 - CONCLUSION: Uncomplicated ultrasound guided thoracentesis. Garett Howell MD Chest Ultrasound 10/08/17 0000 Signed Impressions: Service Date/Time: Sunday, October 08, 2017 08:18 - CONCLUSION: Left pleural effusion as described above. Garett Howell MD Head CT 10/07/17 1605 Signed Impressions: Service Date/Time: Saturday, October 07, 2017 16:36 - CONCLUSION: Stable appearance with no acute hemorrhage or mass effect. Haroon Lanier MD Objective Remarks GENERAL: Cachectic thin female. moderate respiratory distress. tachypneic SKIN: Warm and dry. HEAD: Normocephalic. EYES: No scleral icterus. No injection or drainage. NECK: Supple, trachea midline. No JVD or lymphadenopathy. CARDIOVASCULAR: Regular rate and rhythm without murmurs, gallops, or rubs. RESPIRATORY: Breath sounds equal bilaterally but decreased at the bases. No wheezing or rhonchi auscultated. GASTROINTESTINAL: Abdomen soft, non-tender, nondistended. MUSCULOSKELETAL: No cyanosis, or edema. BACK: Nontender without obvious deformity. No CVA tenderness. Medications and IVs Current Medications Medications (Trade) Dose Ordered Sig/Herlinda Route Start Time Stop Time Status Last Admin (NS Flush) 2 ml UNSCH PRN IV FLUSH 10/07/17 16:15 (NS Flush) 2 ml UNSCH PRN IV FLUSH 10/07/17 18:00 (NS Flush) 2 ml BID IV FLUSH 10/07/17 21:00 10/10/17 08:29 (Tylenol) 650 mg Q4H PRN PO 10/07/17 18:00 10/09/17 08:10 (Zofran Inj) 4 mg Q6H PRN IVP 10/07/17 18:00 (Narcan Inj) 0.4 mg UNSCH PRN IV PUSH 10/07/17 18:00 (Milk Of Magnesia Liq) 30 ml Q12H PRN PO 10/07/17 18:00 (Senokot) 17.2 mg Q12H PRN PO 10/07/17 18:00 (Dulcolax Supp) 10 mg DAILY PRN RECTAL 10/07/17 18:00 (Lactulose Liq) 30 ml DAILY PRN PO 10/07/17 18:00 (Norvasc) 10 mg DAILY PO 10/08/17 09:00 Future Hold 10/09/17 08:10 (Buspar) 5 mg BID PO 10/08/17 09:00 10/10/17 08:30 (Vitamin B12) 1,000 mcg DAILY PO 10/08/17 09:00 10/10/17 08:30 (Folate) 1 mg DAILY PO 10/08/17 09:00 10/10/17 08:30 (Xalatan 0.005% Opth Soln) 1 drop HS EACH EYE 10/08/17 21:00 10/09/17 22:08 (KCl) 10 meq DAILY PO 10/08/17 09:00 10/10/17 08:30 (Xarelto) 20 mg DAILY PO 10/08/17 09:00 Future hold 10/10/17 08:30 (Remeron) 7.5 mg HS PO 10/09/17 21:00 10/09/17 22:08 (Pill Splitter) 1 ea UNSCH PRN OTHER 10/09/17 20:00 Levofloxacin/ Dextrose 150 ml @ 100 mls/hr Q48H IV 10/12/17 09:00 Metronidazole 100 ml @ 100 mls/hr Q8H IV 10/10/17 18:00 10/10/17 17:13 Vancomycin HCl 1000 mg/Sodium Chloride 250 ml @ 250 mls/hr Q24H IV 10/10/17 15:00 10/10/17 15:18 A/P Problem List: (1) Acute hypoxemic respiratory failure ICD Code: J96.01 - Acute respiratory failure with hypoxia Plan: The patient was admitted to the medical floor Chest x-ray on admission and reviewed by me showed diffuse increased interstitial markings likely related to edema. There was also some accompanying atelectasis or consolidation at the lung bases and lateral right upper lung. The patient was started on IV Levaquin. I will add IV Flagyl and IV vancomycin to cover for hospital-acquired pneumonia and possible aspiration pneumonia as well. Will check streptococcal pneumonia antigen and Legionella urine antigen if not previously done. The patient was evaluated by speech therapy. Patient initially placed nothing by mouth for question of aspiration at [facility]. The patient able to have a mechanical soft diet. 10/10 patient with moderate respiratory distress. Obtain chest x-ray which showed cardiomegaly, basilar airspace disease and bilateral effusions. Suspect changes seen in chest x-ray likely secondary to aspiration pneumonia and congestive heart failure. Patient had an echocardiogram 0n 09/16/17 which showed a low-normal ejection fraction estimated in the range of 50-55%. Trace MR and mild to moderate tricuspid valve regurgitation. I will order a dose of 40 minutes of IV Lasix and placed on standing Lasix for acute on chronic diastolic congestive heart failure. Discontinue IV fluids. (2) Pneumonia ICD Code: J18.9 - Pneumonia, unspecified organism Status: Acute Plan: Patient likely with aspiration pneumonia versus hospital-acquired pneumonia since the patient has been recently admitted to the hospital on . Continue supplemental oxygen to keep oxygen saturation more than 92%. 10/10 I will add IV vancomycin. Continue IV Levaquin and IV Flagyl. (3) JH (acute kidney injury) ICD Code: N17.9 - Acute kidney failure, unspecified Plan: Creatinine 2.14 on admission. Lasix held. Creatinine trending down to 1.76 on 10/08. Likely due to prerenal azotemia. Creatinine improving with IV fluids, continue with gentle IV fluids. Continue to monitor BUN and creatinine, strict I's and O 's and avoid nephrotoxins. 10/10 discontinue IV fluids given fluid overload seen on chest x-ray. (4) Metabolic encephalopathy ICD Code: G93.41 - Metabolic encephalopathy Plan: Likely related to sepsis due to pneumonia. (5) Pleural effusion on left ICD Code: J90 - Pleural effusion, not elsewhere classified Status: Acute Plan: As shown on chest x-ray described above. The patient status post ultrasound-guided thoracentesis with extraction of 950 cc of anthony fluid. Likely related to parapneumonic effusion. Continue IV antibiotics as above. 10/10 patient now with bilateral pleural effusions. Likely related to fluid overload due to CHF. (6) A-fib ICD Code: I48.91 - Unspecified atrial fibrillation Status: Chronic Plan: Xarelto was held for procedure. Will resume Xarelto today. Rate is controlled. BP borderline low for antihypertensive medication. (7) Hypotension ICD Code: I95.9 - Hypotension, unspecified Plan: The patient was hypotensive overnight with a blood pressures levels as 86 /44. Continue to hold antihypertensive medications and continue to monitor vital signs. (8) Acute on chronic diastolic (congestive) heart failure ICD Code: I50.33 - Acute on chronic diastolic (congestive) heart failure Plan: I will start the patient IV Lasix. Assessment and Plan DVT prophylaxis: SCDs, will resume Xarelto. Discharge Planning Pending clinical improvement. The patient is still on elevated levels of oxygen. I will order PT eval and treat. Problem Qualifiers (1) Pneumonia: (2) A-fib: Qualified Codes: I48.1 - Persistent atrial fibrillation (3) Hypotension: Qualified Codes: I95.9 - Hypotension, unspecified Darien Wiseman MD Oct 10, 2017 18:48
[2017-10-10] MEDS ORDERED: FUROSEMIDE 20 MG/2 ML VIAL IV PUSH ONE (19:45)
[2017-10-10] MEDS ORDERED: RESP: ALBUTEROL 2.5 MG/IPRATROPIUM 0.5 MG NEB (SCH) NEB ONE (19:45)
[2017-10-10] MEDS ORDERED: RESP: ALBUTEROL 2.5 MG/3 ML NEB (SCH) ONE (19:47)
[2017-10-10] MEDS ORDERED: RESP: ALBUTEROL 2.5 MG/IPRATROPIUM 0.5 MG NEB (PRN) NEB (20:00)
[2017-10-10] MEDS ORDERED: MORPHINE SULFATE 2 MG/ML INJ IV PUSH ONE (20:15)
--- NOTE | 2017-10-10 20:36 | RADRPT ---
EXAM DATE/TIME: 10/10/2017 19:43 [facility] COMPARISON: CHEST SINGLE AP, October 10, 2017, 12:27. INDICATIONS : Shortness of breath. MEDICAL HISTORY : Congestive heart failure. Emphysema. Arthritis. Afib. HTN. COPD. Pneumonia. SURGICAL HISTORY : Tonsillectomy. Bilateral hip replacement. Left knee surgery. ENCOUNTER: Initial ACUITY: 1 day PAIN SCORE: 0/10 LOCATION: Bilateral chest FINDINGS: Single AP view of the chest. Left greater than right pulmonary parenchymal opacity unchanged. Cardiom ediastinal silhouette unchanged. No evidence of the thorax. Possible small left pleural effusion unch anged. CONCLUSION: No significant change. Left greater than right pulmonary opacity again seen. Adam Cleaning MD on October 10, 2017 at 20:32 Board Certified Radiologist. This report was verified electronically.
[2017-10-10] MEDS: MIRTAZAPINE 15 MG TAB PO SCH (23:21)
[2017-10-10] MEDS: POTASSIUM PHOSPHATE/SODIUM PHOSPHATE 250 MG TAB PO SCH (23:21)
[2017-10-10] MEDS: LATANOPROST 0.005% OPHT SOLN 2.5 ML BTL EACH EYE SCH (23:22)
[2017-10-11] VITALS (13 sets, daily range): BP systolic 93–102; BP diastolic 44–62; PULSE 75–83; RESP 22–26; TEMP 97–100.1; O2SAT 74–95
[2017-10-11] MEDS: metroNIDAZOLE 500 MG INJ 100 ML IV SCH ×3 (01:45→18:30)
[2017-10-11] MEDS: ACETAMINOPHEN 325 MG TAB PO PRN (01:45)
[2017-10-11] MEDS: POTASSIUM PHOSPHATE/SODIUM PHOSPHATE 250 MG TAB PO SCH ×2 (01:45→05:02)
[2017-10-11 03:31] LABS: AUTOMATED NEUTROPHIL # 14.4 TH/MM3 (1.8-7.7); BASOPHIL % 0.2 % (0.0-2.0); EOSINOPHIL % 0.2 % (0.0-4.0); HEMATOCRIT 24.8 % (35.0-46.0); HEMOGLOBIN 8.2 GM/DL (11.6-15.3); LYMPH % 5.1 % (9.0-44.0); LYMPHOCYTE # 0.8 TH/MM3 (1.0-4.8); MEAN CELL VOLUME 94.8 FL (80.0-100.0); MEAN CORPUSCULAR HEMOGLOBIN 31.2 PG (27.0-34.0); MEAN CORPUSCULAR HGB CONC 32.9 % (32.0-36.0); MEAN PLATELET VOLUME 7.6 FL (7.0-11.0); MONO % 4.8 % (0.0-8.0); MONOCYTE # 0.8 TH/MM3 (0-0.9); NEUT % 89.7 % (16.0-70.0); PLATELET COUNT 215 TH/MM3 (150-450); RED BLOOD COUNT 2.62 MIL/MM3 (4.00-5.30); RED CELL DISTRIBUTION WIDTH 16.8 % (11.6-17.2)
[2017-10-11 03:46] LABS: ALBUMIN 2.1 GM/DL (3.4-5.0); ALT (GPT) 10 U/L (10-53); AST (GOT) 10 U/L (15-37); BICARBONATE 24.6 MEQ/L (21.0-32.0); BLOOD UREA NITROGEN 49 MG/DL (7-18); CALCIUM 7.8 MG/DL (8.5-10.1); CHLORIDE 119 MEQ/L (98-107); GLOMERULAR FILTRATION RATE 27 ML/MIN (>89); GLUCOSE,RANDOM 131 MG/DL (74-106); PHOSPHORUS 2.1 MG/DL (2.5-4.9); SODIUM (NA) 151 MEQ/L (136-145)
[2017-10-11 03:48] LABS: ALKALINE PHOSPHATASE 73 U/L (45-117); TOTAL BILIRUBIN ADULT 0.8 MG/DL (0.2-1.0); TOTAL PROTEIN 6.1 GM/DL (6.4-8.2)
[2017-10-11] MEDS ORDERED: FUROSEMIDE 20 MG/2 ML VIAL IV PUSH SCH (09:00)
[2017-10-11] MEDS: busPIRone HCL 5 MG TAB PO SCH ×2 (10:22→21:00)
[2017-10-11] MEDS: POTASSIUM CHLORIDE 10 MEQ CONTROLLED RELEASE TAB PO SCH (10:22)
[2017-10-11] MEDS: FOLIC ACID 1 MG TAB PO SCH (10:22)
[2017-10-11] MEDS: SODIUM CHLORIDE 0.9% FLUSH 10 ML FLUSH IV FLUSH SCH ×2 (10:27→21:00)
[2017-10-11] MEDS ORDERED: metroNIDAZOLE 500 MG INJ 100 ML IV SCH (10:45)
--- NOTE | 2017-10-11 11:40 | PD.CONS ---
HPI Service Nephrology Consult Requested By Reason for Consult Acute kidney injury, hypernatremia Primary Care Physician History of Present Illness Presented to ER on the . Creatinine was 2.15 on that day. In August her creatinine was less than 1. Patient was transferred from a SNF with general decline in status, weight loss and possible aspiration. Creatinine improved to 1.57 as of yesterday. She demonstrated respiratory distress yesterday. Given Lasix. Her creatinine has increased to 1.8 today. She is also hypernatremic. CXR findings are consistent with bilateral infiltrates. On antibiotics for pneumonia. Vancomycin started yesterday. Review of Systems ROS Limitations: Clinical Condition, Altered Mental Status Past Family Social History Allergies: Coded Allergies: codeine (Unverified Allergy, Severe, Itching, 09/02/17) Penicillins (Verified Allergy, Unknown, 10/10/17) Past Medical History Hypertension COPD CHF Atrial fibrillation on Xarelto History of pneumonia Muscle weakness Dysphagia Pulmonary edema Anxiety Past Surgical History Right rotator cuff surgery Bilateral hip replacements Left knee surgery Skin cancer removed Reported Medications Mirtazapine 7.5 Mg Tab 7.5 Mg PO HS Buspirone (Buspirone HCl) 5 Mg Tab 5 Mg PO BID Latanoprost Opth Drops (Latanoprost) 0.005% Drops 1 Drop EACH EYE HS Refrigerate until opened. Klor-Con 10 (Potassium Chloride) 10 Meq Tab 10 Meq PO DAILY Furosemide 20 Mg Tab 20 Mg PO DAILY Folic Acid 0.8 Mg Tab 1 Mg PO DAILY Amlodipine (Amlodipine Besylate) 10 Mg Tab 10 Mg PO DAILY Xarelto (Rivaroxaban) 20 Mg Tab 20 Mg PO DAILY Vitamin B-12 (Cyanocobalamin) 1,000 Mcg Tab 1,000 Mcg PO DAILY Non-Aspirin Pain Relief (Acetaminophen) 325 Mg Tab 325 Mg PO Q4-6H PRN Active Ordered Medications Current Medications Medications (Trade) Dose Ordered Sig/Herlinda Route Start Time Stop Time Status Last Admin (NS Flush) 2 ml UNSCH PRN IV FLUSH 10/07/17 16:15 (NS Flush) 2 ml UNSCH PRN IV FLUSH 10/07/17 18:00 (NS Flush) 2 ml BID IV FLUSH 10/07/17 21:00 10/11/17 10:27 (Tylenol) 650 mg Q4H PRN PO 1/9/18 18:00 10/11/17 01:45 (Zofran Inj) 4 mg Q6H PRN IVP 10/07/17 18:00 (Narcan Inj) 0.4 mg UNSCH PRN IV PUSH 10/07/17 18:00 (Milk Of Magnesia Liq) 30 ml Q12H PRN PO 10/07/17 18:00 (Senokot) 17.2 mg Q12H PRN PO 10/07/17 18:00 (Dulcolax Supp) 10 mg DAILY PRN RECTAL 10/07/17 18:00 (Lactulose Liq) 30 ml DAILY PRN PO 10/07/17 18:00 (Norvasc) 10 mg DAILY PO 10/08/17 09:00 Future Hold 10/09/17 08:10 (Buspar) 5 mg BID PO 10/08/17 09:00 10/11/17 10:22 (Vitamin B12) 1,000 mcg DAILY PO 10/08/17 09:00 10/10/17 08:30 (Folate) 1 mg DAILY PO 10/08/17 09:00 10/11/17 10:22 (Xalatan 0.005% Opth Soln) 1 drop HS EACH EYE 10/08/17 21:00 10/10/17 23:22 (KCl) 10 meq DAILY PO 10/08/17 09:00 10/11/17 10:22 (Xarelto) 20 mg DAILY PO 10/08/17 09:00 Future hold 10/10/17 08:30 (Remeron) 7.5 mg HS PO 10/09/17 21:00 10/10/17 23:21 (Pill Splitter) 1 ea UNSCH PRN OTHER 10/09/17 20:00 Levofloxacin/ Dextrose 150 ml @ 100 mls/hr Q48H IV 10/12/17 09:00 Metronidazole 100 ml @ 100 mls/hr Q8H IV 10/10/17 18:00 10/11/17 10:23 Vancomycin HCl 1000 mg/Sodium Chloride 250 ml @ 250 mls/hr Q24H IV 10/10/17 15:00 10/10/17 15:18 (K-Phos Neutral) 250 mg Q6HR PO 10/10/17 19:00 10/11/17 05:02 (Lasix Inj) 20 mg BID@18 IV PUSH 10/11/17 09:00 10/11/17 10:23 (Duoneb Neb) 1 ampule Q2HR NEB PRN NEB 10/10/17 20:00 Sodium Chloride 38.5 meq/Sterile Water 1,009.625 ml @ 42 mls/hr Q24H IV 10/11/17 13:00 Aztreonam 2000 mg/ Sodium Chloride 100 ml @ 200 mls/hr ONCE ONCE IV 10/11/17 12:00 10/11/17 12:29 Aztreonam 1000 mg/ Sodium Chloride 100 ml @ 200 mls/hr Q8H IV 10/11/17 20:00 Family History reviewed, non contributory Social History Former smoker. No history of alcohol abuse or drug abuse. USP patient. She has a daughter who lives in [place]. Physical Exam Vital Signs Vital Signs Date Time Temp Pulse Resp B/P (MAP) Pulse Ox O2 Delivery O2 Flow Rate FiO2 10/11/17 08:24 94 80 10/11/17 08:10 75 10/11/17 08:10 92 Bi-Pap 80 10/11/17 08:10 98.9 75 22 102/47 (65) 93 10/11/17 04:11 92 60 10/11/17 04:11 92 BiPAP 60 10/11/17 04:00 98.3 75 22 93/53 (66) 94 10/11/17 04:00 75 10/11/17 00:00 100.1 78 22 102/52 (69) 93 10/11/17 00:00 76 10/10/17 20:30 98 Bi-Pap 10/10/17 20:20 93 60 10/10/17 20:00 73 10/10/17 20:00 98.0 79 18 102/52 (69) 95 10/10/17 19:37 95 Non-Rebreather 15.00 10/10/17 19:36 97 15.00 100 10/10/17 19:30 Non-Rebreather 15.00 95 10/10/17 16:00 97.4 69 24 87/55 (66) 90 10/10/17 12:13 Nasal Cannula 5.00 90 10/10/17 12:00 97.3 74 22 97/57 (70) 91 Physical Exam GENERAL: frail, elderly, on BIPAP SKIN: Warm and dry. HEAD: Normocephalic. EYES: No scleral icterus. No injection or drainage. NECK: Supple, trachea midline. No JVD or lymphadenopathy. CARDIOVASCULAR: Regular rate and rhythm without murmurs, gallops, or rubs. RESPIRATORY: bilateral rales, rhonchi GASTROINTESTINAL: Abdomen soft, non-tender, nondistended. MUSCULOSKELETAL: no edema, discoloration of the lower extremities, ecchymoses. Laboratory Laboratory Tests Test 10/10/17 19:45 10/11/17 03:12 10/11/17 06:15 Blood Gas Puncture Site RT RADIAL RT RADIAL Blood Gas Patient Temperature 98.6 98.6 Blood Gas HCO3 22 23 Blood Gas Base Excess -2.0 -0.1 Blood Gas Oxygen Saturation 94 87 Arterial Blood pH 7.41 7.47 Arterial Blood Partial Pressure CO2 36 32 Arterial Blood Partial Pressure O2 77 55 Arterial Blood Oxygen Content 11.0 14.8 Arterial Blood Carboxyhemoglobin 1.5 1.4 Arterial Blood Methemoglobin 0.8 0.9 Blood Gas Hemoglobin 8.2 12.2 Oxygen Delivery Device NRB BiPAP Blood Gas Liter Flow 15 Blood Gas Inspired Oxygen 100 60 White Blood Count 16.0 Red Blood Count 2.62 Hemoglobin 8.2 Hematocrit 24.8 Mean Corpuscular Volume 94.8 Mean Corpuscular Hemoglobin 31.2 Mean Corpuscular Hemoglobin Concent 32.9 Red Cell Distribution Width 16.8 Platelet Count 215 Mean Platelet Volume 7.6 Neutrophils (%) (Auto) 89.7 Lymphocytes (%) (Auto) 5.1 Monocytes (%) (Auto) 4.8 Eosinophils (%) (Auto) 0.2 Basophils (%) (Auto) 0.2 Neutrophils # (Auto) 14.4 Lymphocytes # (Auto) 0.8 Monocytes # (Auto) 0.8 Eosinophils # (Auto) 0.0 Basophils # (Auto) 0.0 CBC Comment DIFF FINAL Differential Comment Blood Urea Nitrogen 49 Creatinine 1.80 Random Glucose 131 Total Protein 6.1 Albumin 2.1 Calcium Level 7.8 Phosphorus Level 2.1 Alkaline Phosphatase 73 Aspartate Amino Transf (AST/SGOT) 10 Alanine Aminotransferase (ALT/SGPT) 10 Total Bilirubin 0.8 Sodium Level 151 Potassium Level 4.0 Chloride Level 119 Carbon Dioxide Level 24.6 Anion Gap 7 Estimat Glomerular Filtration Rate 27 Lactic Acid Level 2.2 Blood Gas Ventilator Setting IPAP 10/EPAP 5 Date/Time Source Procedure Growth Status 10/11/17 06:35 Blood Peripheral Aerobic Blood Culture Pending Received 10/11/17 06:35 Blood Peripheral Anaerobic Blood Culture Pending Received 10/09/17 11:10 Fluid Pleural Fluid Fungal Smear - Final NO FUNGAL ELEMENTS SEEN. Resulted 10/09/17 11:10 Fluid Pleural Fluid Fungal Culture Pending Resulted Result Diagram: 10/11/1731110/11/17311 Assessment and Plan Problem List: (1) JH (acute kidney injury) ICD Codes: N17.9 - Acute kidney failure, unspecified Plan: could be due to intravascular volume depletion and pre-renal azotemia. Also could be due to ATN from sepsis. Renal function declined with diuretics. Also has developed hypernatremia. Agree with /4NS. Suspend diuretics. Avoid nephrotoxic agents. (2) Hypernatremia ICD Codes: E87.0 - Hyperosmolality and hypernatremia Plan: due to lack of access to free water, use of loop diuretics. Continue 1/4 NS (3) Altered mental status ICD Codes: R41.82 - Altered mental status, unspecified Status: Acute Plan: metabolic encephalopathy. Prognosis is poor. (4) History of atrial fibrillation ICD Codes: Z86.79 - History of atrial fibrillation Status: Acute Plan: Recommend to suspend Xarelto due to JH (5) Pneumonia ICD Codes: J18.9 - Pneumonia, unspecified organism Status: Acute Plan: ID has been consulted. Carefully monitor Vancomycin dosing and levels Assessment and Plan Thanks for the consult. Problem Qualifiers (1) Altered mental status: Qualified Codes: R41.82 - Altered mental status, unspecified (2) Pneumonia: Remberto Fernandez MD Oct 11, 2017 11:40
[2017-10-11] MEDS: RIVAROXABAN 20 MG TAB PO SCH (11:54)
[2017-10-11] MEDS: CYANOCOBALAMIN 1,000 MCG TAB PO SCH (11:54)
[2017-10-11] MEDS ORDERED: AZTREONAM INJ 2,000 MG in SODIUM CHLORIDE 0.9% INJ 100 ML IV ONE (12:00)
[2017-10-11] MEDS ORDERED: SODIUM CHLORIDE 23.4% INJ 38.5 MEQ in WATER STERILE FOR INJ 1,000 ML IV SCH (13:00)
[2017-10-11 13:16] LABS: BILIRUBIN, URINE NEG (NEG); BLOOD, URINE SMALL (NEG); GLUCOSE,URINE NEG (NEG); KETONE, URINE NEG (NEG); MUCUS URINE FEW /lpf (OCC); NITRITE,URINE NEG (NEG); URINE COLOR YELLOW (YELLW/STRAW); URINE LEUKOCYTE ESTERASE LARGE (NEG); WHITE BLOOD CELL CLUMPS MOD
[2017-10-11] MEDS ORDERED: ETOMIDATE 40 MG/20 ML VIAL ONE (13:33)
--- NOTE | 2017-10-11 13:42 | PD.ID.CON ---
History of Present Illness Service ID Consult Requested By Reason for Consult Evaluation and Mment of Sepsis, New Pneumonia. Primary Care Physician Not known Diagnoses: History of Present Illness is a 82 y/o CF with PMHx of COPD, CHF, Afib on Xarelto, recurrent aspiration per review of records, h/o pneumonia, recent h/o fall with fracture distal radius fracture and ORIF of this fracture. Patient reportedly is a resident of [facility]. She presented to the ED on 10/07/2017 due to decreased oral intake, ongoing aspiration (was on Levaquin), increased confusion. Reportedly, pt was recently admitted here for pneumonia, CHF, hypoxia and discharged on Sep 20. Upon presentation her Cr was 2.15 (In Dec was less than 1). Patient was evaluated for possible sepsis on admission and underwent workup. She has a left side pneumonia and infiltrate. She underwent thoracentesis of left side. She has been on antibiotics and reportedly was on a semi solid diet when she again began to deteriorate. She was found to be in moderate resp distress and subsequently a Halicat was called and patient transferred to the ICU. In ICU patient is on BiPAP /, FIO2 100% and her sats are 94-95%. She is in resp distress using accessory muscles of respiration and appears to be clinically fatigued from her work of breathing. An ABG is pending. I placed a call to [facility] but code status is not determined. I placed a call to the daughter and explained to her that due to deteriorating resp status intubation and mechanical ventilation is needed and we want to respect her mothers wishes and wish to know the code status. She replied she is on her way to hospital. I also d.w the case in further details concern for ongoing aspiration and possibility that intubation now could likely lead to trach and PEG in future. At the time of my eval pt is in ICU not on pressors. Resp status as described. UO ok. Pt oriented to self only. ID consulted for eval and Mment of Sepsis, New pneumonia. Review of Systems ROS Limitations: Clinical Condition, Altered Mental Status Past Family Social History Allergies: Coded Allergies: codeine (Unverified Allergy, Severe, Itching, 09/02/17) Penicillins (Verified Allergy, Unknown, 10/10/17) Past Medical History Hypertension COPD CHF Atrial fibrillation on Xarelto History of pneumonia Muscle weakness Dysphagia Pulmonary edema Anxiety Past Surgical History Right rotator cuff surgery Bilateral hip replacements Left knee surgery Skin cancer removed Reported Medications Reported Meds & Active Scripts Active Hydrocodone-Acetamin 5-325 mg (Hydrocodone/Acetaminophen) 5 Mg-325 Mg Tablet 1 Tab PO Q8HR PRN Eliquis (Apixaban) 5 Mg Tab 5 Mg PO BID Hydrocodone-Acetaminophen 5-325 mg Tab 1 Tab PO Q6HR PRN Norvasc (Amlodipine Besylate) 10 Mg Tab 10 Mg PO DAILY Reported Non-Aspirin Pain Relief (Acetaminophen) 325 Mg Tab 325 Mg PO Q4-6H PRN Mirtazapine 7.5 Mg Tab 7.5 Mg PO HS Buspirone (Buspirone HCl) 5 Mg Tab 5 Mg PO BID Latanoprost Opth Drops (Latanoprost) 0.005% Drops 1 Drop EACH EYE HS Refrigerate until opened. Klor-Con 10 (Potassium Chloride) 10 Meq Tab 10 Meq PO DAILY Furosemide 20 Mg Tab 20 Mg PO DAILY Folic Acid 0.8 Mg Tab 1 Mg PO DAILY Amlodipine (Amlodipine Besylate) 10 Mg Tab 10 Mg PO DAILY Xarelto (Rivaroxaban) 20 Mg Tab 20 Mg PO DAILY Vitamin B-12 (Cyanocobalamin) 1,000 Mcg Tab 1,000 Mcg PO DAILY Vitamin B-12 (Cyanocobalamin) 1,000 Mcg Tab 1,000 Mcg PO DAILY Thera M Plus (Multivitamins/Minerals Therapeutic) 1 Tab 1 Tab PO DAILY Mirtazapine 7.5 Mg Tab 7.5 Mg PO HS Latanoprost Opth Drops (Latanoprost) 0.005% Drops 1 Drop EACH EYE HS Refrigerate until opened. Folic Acid 0.4 Mg Tab 1 Mg PO DAILY Amiodarone (Amiodarone HCl) 200 Mg Tab 200 Mg PO DAILY Active Ordered Medications Current Medications Medications (Trade) Dose Ordered Sig/Herlinda Route Start Time Stop Time Status Last Admin (NS Flush) 2 ml UNSCH PRN IV FLUSH 10/07/17 16:15 (NS Flush) 2 ml UNSCH PRN IV FLUSH 10/07/17 18:00 (NS Flush) 2 ml BID IV FLUSH 10/07/17 21:00 10/11/17 10:27 (Tylenol) 650 mg Q4H PRN PO 10/07/17 18:00 10/11/17 01:45 (Zofran Inj) 4 mg Q6H PRN IVP 10/07/17 18:00 (Narcan Inj) 0.4 mg UNSCH PRN IV PUSH 10/07/17 18:00 (Milk Of Magnesia Liq) 30 ml Q12H PRN PO 10/07/17 18:00 (Senokot) 17.2 mg Q12H PRN PO 10/07/17 18:00 (Dulcolax Supp) 10 mg DAILY PRN RECTAL 10/07/17 18:00 (Lactulose Liq) 30 ml DAILY PRN PO 10/07/17 18:00 (Norvasc) 10 mg DAILY PO 10/08/17 09:00 Future Hold 10/09/17 08:10 (Buspar) 5 mg BID PO 10/08/17 09:00 10/11/17 10:22 (Vitamin B12) 1,000 mcg DAILY PO 10/08/17 09:00 10/11/17 11:54 (Folate) 1 mg DAILY PO 10/08/17 09:00 10/11/17 10:22 (Xalatan 0.005% Opth Soln) 1 drop HS EACH EYE 10/08/17 21:00 10/10/17 23:22 (KCl) 10 meq DAILY PO 10/08/17 09:00 10/11/17 10:22 (Xarelto) 20 mg DAILY PO 10/08/17 09:00 Future hold 10/11/17 11:54 (Remeron) 7.5 mg HS PO 10/09/17 21:00 10/10/17 23:21 (Pill Splitter) 1 ea UNSCH PRN OTHER 10/09/17 20:00 Levofloxacin/ Dextrose 150 ml @ 100 mls/hr Q48H IV 10/12/17 09:00 Metronidazole 100 ml @ 100 mls/hr Q8H IV 10/10/17 18:00 10/11/17 10:23 Vancomycin HCl 1000 mg/Sodium Chloride 250 ml @ 250 mls/hr Q24H IV 10/10/17 15:00 10/10/17 15:18 (Duoneb Neb) 1 ampule Q2HR NEB PRN NEB 10/10/17 20:00 Aztreonam 1000 mg/ Sodium Chloride 100 ml @ 200 mls/hr Q8H IV 10/11/17 20:00 (Morphine Inj) 2 mg Q3H PRN IV PUSH 10/11/17 14:00 UNV Family History reviewed and NC to current problems. Social History Former smoker per records. No history of alcohol abuse or drug abuse. FDC patient. She has a daughter who lives in [place]. Used to be a teacher by profession. No exposure to chemicals. Resident of [facility]. Physical Exam Vital Signs Vital Signs Date Time Temp Pulse Resp B/P (MAP) Pulse Ox O2 Delivery O2 Flow Rate FiO2 10/11/17 12:31 92 100 10/11/17 08:24 94 80 10/11/17 08:10 75 10/11/17 08:10 92 Bi-Pap 80 10/11/17 08:10 98.9 75 22 102/47 (65) 93 10/11/17 04:11 92 60 10/11/17 04:11 92 BiPAP 60 10/11/17 04:00 98.3 75 22 93/53 (66) 94 10/11/17 04:00 75 10/11/17 00:00 100.1 78 22 102/52 (69) 93 10/11/17 00:00 76 10/10/17 20:30 98 Bi-Pap 10/10/17 20:20 93 60 10/10/17 20:00 73 10/10/17 20:00 98.0 79 18 102/52 (69) 95 10/10/17 19:37 95 Non-Rebreather 15.00 10/10/17 19:36 97 15.00 100 10/10/17 19:30 Non-Rebreather 15.00 95 10/10/17 16:00 97.4 69 24 87/55 (66) 90 Physical Exam GENERAL: Thin built,poorly nourished patient, in moderate to severe resp distress using accessory muscles of respiration. SKIN: No rashes. Areas of bruising noted. Cool and dry. HEAD: Atraumatic. Normocephalic. No temporal or scalp tenderness. EYES: Pupils equal round and reactive. Extraocular motions intact. No scleral icterus. No injection or drainage. ENT: BiPAP mask on. NECK: Trachea midline. Supple, nontender, no meningeal signs. CARDIOVASCULAR: HS audible. RESPIRATORY: Decreased air entry left side. Occ wheezes. No rales. GASTROINTESTINAL: Abdomen soft, non-tender, nondistended. MUSCULOSKELETAL: Left UE in dressing. LE ok NEUROLOGICAL: Lethargic but arousable. Moaning. Not responding verbally to me. Psych could not be assessed. IV line sites with no e.o infection. Laboratory Laboratory Tests Test 10/10/17 19:45 10/11/17 03:12 10/11/17 06:15 10/11/17 11:45 Blood Gas Puncture Site RT RADIAL RT RADIAL Blood Gas Patient Temperature 98.6 98.6 Blood Gas HCO3 22 23 Blood Gas Base Excess -2.0 -0.1 Blood Gas Oxygen Saturation 94 87 Arterial Blood pH 7.41 7.47 Arterial Blood Partial Pressure CO2 36 32 Arterial Blood Partial Pressure O2 77 55 Arterial Blood Oxygen Content 11.0 14.8 Arterial Blood Carboxyhemoglobin 1.5 1.4 Arterial Blood Methemoglobin 0.8 0.9 Blood Gas Hemoglobin 8.2 12.2 Oxygen Delivery Device NRB BiPAP Blood Gas Liter Flow 15 Blood Gas Inspired Oxygen 100 60 White Blood Count 16.0 Red Blood Count 2.62 Hemoglobin 8.2 Hematocrit 24.8 Mean Corpuscular Volume 94.8 Mean Corpuscular Hemoglobin 31.2 Mean Corpuscular Hemoglobin Concent 32.9 Red Cell Distribution Width 16.8 Platelet Count 215 Mean Platelet Volume 7.6 Neutrophils (%) (Auto) 89.7 Lymphocytes (%) (Auto) 5.1 Monocytes (%) (Auto) 4.8 Eosinophils (%) (Auto) 0.2 Basophils (%) (Auto) 0.2 Neutrophils # (Auto) 14.4 Lymphocytes # (Auto) 0.8 Monocytes # (Auto) 0.8 Eosinophils # (Auto) 0.0 Basophils # (Auto) 0.0 CBC Comment DIFF FINAL Differential Comment Blood Urea Nitrogen 49 Creatinine 1.80 Random Glucose 131 Total Protein 6.1 Albumin 2.1 Calcium Level 7.8 Phosphorus Level 2.1 Alkaline Phosphatase 73 Aspartate Amino Transf (AST/SGOT) 10 Alanine Aminotransferase (ALT/SGPT) 10 Total Bilirubin 0.8 Sodium Level 151 Potassium Level 4.0 Chloride Level 119 Carbon Dioxide Level 24.6 Anion Gap 7 Estimat Glomerular Filtration Rate 27 Lactic Acid Level 2.2 Blood Gas Ventilator Setting IPAP 10/EPAP 5 Urine Color YELLOW Urine Turbidity HAZY Urine pH 5.0 Urine Specific Mora 1.009 Urine Protein NEG Urine Glucose (UA) NEG Urine Ketones NEG Urine Occult Blood SMALL Urine Nitrite NEG Urine Bilirubin NEG Urine Urobilinogen LESS THAN 2.0 Urine Leukocyte Esterase LARGE Urine RBC 18 Urine WBC 125 Urine WBC Clumps MOD Urine Mucus FEW Urine Yeast (Budding) MANY Microscopic Urinalysis Comment CATH-CULTURE IND Test 10/11/17 13:19 Blood Gas Puncture Site RT RADIAL Blood Gas Patient Temperature 98.6 Blood Gas HCO3 23 Blood Gas Base Excess -0.5 Blood Gas Oxygen Saturation 93 Arterial Blood pH 7.44 Arterial Blood Partial Pressure CO2 35 Arterial Blood Partial Pressure O2 74 Arterial Blood Oxygen Content 10.2 Arterial Blood Carboxyhemoglobin 1.3 Arterial Blood Methemoglobin 1.3 Blood Gas Hemoglobin 7.7 Oxygen Delivery Device BIPAP Blood Gas Ventilator Setting IPAP10/[id number] Blood Gas Inspired Oxygen 100 Date/Time Source Procedure Growth Status 10/11/17 06:35 Blood Peripheral Aerobic Blood Culture Pending Received 10/11/17 06:35 Blood Peripheral Anaerobic Blood Culture Pending Received 10/09/17 11:10 Fluid Pleural Fluid Fungal Smear - Final NO FUNGAL ELEMENTS SEEN. Resulted 10/09/17 11:10 Fluid Pleural Fluid Fungal Culture Pending Resulted 10/11/17 11:45 Urine Catheterized Urine Urine Culture Pending Received Result Diagram: 10/11/17 0312 10/11/17 0312 Imaging Last Impressions Wrist X-Ray 10/10/17 0000 Signed Impressions: Service Date/Time: Tuesday, October 10, 2017 12:34 - CONCLUSION: 1. Fixation distal left radius. No complications identified. Henrry Martínez MD Chest X-Ray 10/10/17 0000 Signed Impressions: Service Date/Time: Tuesday, October 10, 2017 19:43 - CONCLUSION: No significant change. Left greater than right pulmonary opacity again seen. Adam Cleaning MD Thoracentesis Ultrasound 10/09/17 0000 Signed Impressions: Service Date/Time: September 09:59 - CONCLUSION: Uncomplicated ultrasound guided thoracentesis. Garett Howell MD Chest Ultrasound 10/08/17 0000 Signed Impressions: Service Date/Time: Sunday, October 08, 2017 08:18 - CONCLUSION: Left pleural effusion as described above. Garett Howell MD Head CT 10/07/17 1605 Signed Impressions: Service Date/Time: Saturday, October 07, 2017 16:36 - CONCLUSION: Stable appearance with no acute hemorrhage or mass effect. Haroon Lanier MD Assessment and Plan Assessment and Plan Possible Sepsis (fever, leucocytosis) with acute resp failure Acute resp failure on BiPAP with imminent intubation need. Pneumonia: aspiration pneumonia, new hospital acquired organisms possible. Acute renal failure: prerenal, sepsis, meds COPD exacerbation with hypoxemia. CHF Acute metabolic encephalopathy: sepsis, metabolic. Recs Continue Azactam IV for now Continue Flagyl IV for now Continue Levaquin IV DC Vanco IV (avoid nephrotoxins in view of ARF) Likely ongoing aspiration possible given altered mental status. Extensive d.w patients daughter in presence of RN Tameka, . She elected her mother to go hospice. to change code status on file. Critical thinking, decision making. d.w family and care providers. reviewed Nephro notes. I will sign off please call back if any change in clinical status or questions or change in code status or plans. Oneyda Mi MD Oct 11, 2017 13:42
--- NOTE | 2017-10-11 13:47 | HHI.PR ---
Subjective Remarks Called by RN patient on Bipap and 100% Fio2. tachypneic, c/o sob, denies cp Denies fevers or chills Patient's work of breathing got worst last night and patient was placed on BiPAP and transferred to the intensive care unit. Objective Vitals Vital Signs Date Time Temp Pulse Resp B/P (MAP) Pulse Ox O2 Delivery O2 Flow Rate FiO2 10/11/17 12:31 92 100 10/11/17 08:24 94 80 10/11/17 08:10 75 10/11/17 08:10 92 Bi-Pap 80 10/11/17 08:10 98.9 75 22 102/47 (65) 93 10/11/17 04:11 92 60 10/11/17 04:11 92 BiPAP 60 10/11/17 04:00 98.3 75 22 93/53 (66) 94 10/11/17 04:00 75 10/11/17 00:00 100.1 78 22 102/52 (69) 93 10/11/17 00:00 76 10/10/17 20:30 98 Bi-Pap 10/10/17 20:20 93 60 10/10/17 20:00 73 10/10/17 20:00 98.0 79 18 102/52 (69) 95 10/10/17 19:37 95 Non-Rebreather 15.00 10/10/17 19:36 97 15.00 100 10/10/17 19:30 Non-Rebreather 15.00 95 10/10/17 16:00 97.4 69 24 87/55 (66) 90 I/O 10/10/17 10/10/17 10/10/17 10/11/17 10/11/17 10/11/17 07:00 15:00 23:00 07:00 15:00 23:00 Intake Total 180 ml 720 ml 180 ml Output Total 600 ml Balance 180 ml 720 ml -420 ml Intake Oral 180 ml 720 ml 180 ml Output Urine Total 600 ml # Voids 3 3 # Bowel Movements 0 2 0 Result Diagram: 10/11/1731110/11/17311 Imaging Last Impressions Wrist X-Ray 10/10/17 0000 Signed Impressions: Service Date/Time: Tuesday, October 10, 2017 12:34 - CONCLUSION: 1. Fixation distal left radius. No complications identified. Henrry Martínez MD Chest X-Ray 10/10/17 0000 Signed Impressions: Service Date/Time: Tuesday, October 10, 2017 19:43 - CONCLUSION: No significant change. Left greater than right pulmonary opacity again seen. Adam Cleaning MD Thoracentesis Ultrasound 10/09/17 0000 Signed Impressions: Service Date/Time: September 09:59 - CONCLUSION: Uncomplicated ultrasound guided thoracentesis. Garett Howell MD Chest Ultrasound 10/08/17 0000 Signed Impressions: Service Date/Time: Sunday, October 08, 2017 08:18 - CONCLUSION: Left pleural effusion as described above. Garett Howell MD Head CT 10/07/17 1605 Signed Impressions: Service Date/Time: Saturday, October 07, 2017 16:36 - CONCLUSION: Stable appearance with no acute hemorrhage or mass effect. Haroon Lanier MD Objective Remarks GENERAL: Cachectic thin female. moderate respiratory distress. tachypneic SKIN: Warm and dry. HEAD: Normocephalic. EYES: No scleral icterus. No injection or drainage. NECK: Supple, trachea midline. No JVD or lymphadenopathy. CARDIOVASCULAR: Regular rate and rhythm without murmurs, gallops, or rubs. RESPIRATORY: Breath sounds equal bilaterally but decreased at the bases. No wheezing or rhonchi auscultated. GASTROINTESTINAL: Abdomen soft, non-tender, nondistended. MUSCULOSKELETAL: No cyanosis, or edema. BACK: Nontender without obvious deformity. No CVA tenderness. Procedures Ultrasound-guided thoracentesis of left-sided pleural effusion. Medications and IVs Current Medications Medications (Trade) Dose Ordered Sig/Herlinda Route Start Time Stop Time Status Last Admin (NS Flush) 2 ml UNSCH PRN IV FLUSH 10/07/17 16:15 (NS Flush) 2 ml UNSCH PRN IV FLUSH 10/07/17 18:00 (NS Flush) 2 ml BID IV FLUSH 10/07/17 21:00 10/11/17 10:27 (Tylenol) 650 mg Q4H PRN PO 10/07/17 18:00 10/11/17 01:45 (Zofran Inj) 4 mg Q6H PRN IVP 10/07/17 18:00 (Narcan Inj) 0.4 mg UNSCH PRN IV PUSH 10/07/17 18:00 (Milk Of Magnesia Liq) 30 ml Q12H PRN PO 10/07/17 18:00 (Senokot) 17.2 mg Q12H PRN PO 10/07/17 18:00 (Dulcolax Supp) 10 mg DAILY PRN RECTAL 10/07/17 18:00 (Lactulose Liq) 30 ml DAILY PRN PO 10/07/17 18:00 (Norvasc) 10 mg DAILY PO 10/08/17 09:00 Future Hold 10/09/17 08:10 (Buspar) 5 mg BID PO 10/08/17 09:00 10/11/17 10:22 (Vitamin B12) 1,000 mcg DAILY PO 10/08/17 09:00 10/11/17 11:54 (Folate) 1 mg DAILY PO 10/08/17 09:00 10/11/17 10:22 (Xalatan 0.005% Opth Soln) 1 drop HS EACH EYE 10/08/17 21:00 10/10/17 23:22 (KCl) 10 meq DAILY PO 10/08/17 09:00 10/11/17 10:22 (Xarelto) 20 mg DAILY PO 10/08/17 09:00 Future hold 10/11/17 11:54 (Remeron) 7.5 mg HS PO 10/09/17 21:00 10/10/17 23:21 (Pill Splitter) 1 ea UNSCH PRN OTHER 10/09/17 20:00 Levofloxacin/ Dextrose 150 ml @ 100 mls/hr Q48H IV 10/12/17 09:00 Metronidazole 100 ml @ 100 mls/hr Q8H IV 10/10/17 18:00 10/11/17 10:23 (Duoneb Neb) 1 ampule Q2HR NEB PRN NEB 10/10/17 20:00 Aztreonam 1000 mg/ Sodium Chloride 100 ml @ 200 mls/hr Q8H IV 10/11/17 20:00 (Morphine Inj) 2 mg Q3H PRN IV PUSH 10/11/17 14:00 UNV A/P Problem List: (1) Acute hypoxemic respiratory failure ICD Code: J96.01 - Acute respiratory failure with hypoxia Plan: The patient was admitted to the medical floor Chest x-ray on admission and reviewed by me showed diffuse increased interstitial markings likely related to edema. There was also some accompanying atelectasis or consolidation at the lung bases and lateral right upper lung. The patient was started on IV Levaquin. I will add IV Flagyl and IV vancomycin to cover for hospital-acquired pneumonia and possible aspiration pneumonia as well. Will check streptococcal pneumonia antigen and Legionella urine antigen if not previously done. The patient was evaluated by speech therapy. Patient initially placed nothing by mouth for question of aspiration at snf. The patient able to have a mechanical soft diet. 10/10 patient with moderate respiratory distress. Obtain chest x-ray which showed cardiomegaly, basilar airspace disease and bilateral effusions. Suspect changes seen in chest x-ray likely secondary to aspiration pneumonia and congestive heart failure. Patient had an echocardiogram 0n 09/16/17 which showed a low-normal ejection fraction estimated in the range of 50-55%. Trace MR and mild to moderate tricuspid valve regurgitation. I will order a dose of 40 minutes of IV Lasix and placed on standing Lasix for acute on chronic diastolic congestive heart failure. Discontinue IV fluids. 10/11 patient placed on BiPAP due to respiratory distress overnight. Patient was also given extra 20 mg IV of furosemide by covering PA. Patient today's on BiPAP on moderate respiratory distress with an Fio2 of 100%. Discussed the current situation with the patient's daughter and the ID physician Dr Mi. Explained to the patient's daughter that due to the patient's age, the patient status, comorbidities like congestive heart failure, the patient will likely would have difficulty coming off mechanical intubation and probably would need to have a trach and a Peg placed to the patient get better. Patient's daughter requested the patient to be placed on hospice. The patient himself stated that she did not want to be intubated. Admit the patient DO NOT RESUSCITATE and hospice consult was placed. (2) Pneumonia ICD Code: J18.9 - Pneumonia, unspecified organism Status: Acute Plan: Patient likely with aspiration pneumonia versus hospital-acquired pneumonia since the patient has been recently admitted to the hospital on . Continue supplemental oxygen to keep oxygen saturation more than 92%. Continue IV antibiotics as per ID recommendations. DC vancomycin and continue Levaquin and Flagyl. (3) JH (acute kidney injury) ICD Code: N17.9 - Acute kidney failure, unspecified Plan: Creatinine 2.14 on admission. Lasix held. Creatinine trending down to 1.76 on 10/08. Likely due to prerenal azotemia. Creatinine improving with IV fluids, continue with gentle IV fluids. Continue to monitor BUN and creatinine, strict I's and O 's and avoid nephrotoxins. 10/10 discontinue IV fluids given fluid overload seen on chest x-ray. 10/11 creatinine worsening at 1.8. (4) Metabolic encephalopathy ICD Code: G93.41 - Metabolic encephalopathy Plan: Likely related to sepsis due to pneumonia. Resolving. (5) Pleural effusion on left ICD Code: J90 - Pleural effusion, not elsewhere classified Status: Acute Plan: As shown on chest x-ray described above. The patient status post ultrasound-guided thoracentesis with extraction of 950 cc of anthony fluid. Likely related to parapneumonic effusion. Continue IV antibiotics as above. 10/10 patient now with bilateral pleural effusions. Likely related to fluid overload due to CHF. Continue IV diuretics for now. (6) A-fib ICD Code: I48.91 - Unspecified atrial fibrillation Status: Chronic Plan: Xarelto was held for procedure. Will resume Xarelto today. Rate is controlled. BP borderline low for antihypertensive medication. (7) Hypotension ICD Code: I95.9 - Hypotension, unspecified (8) Acute on chronic diastolic (congestive) heart failure ICD Code: I50.33 - Acute on chronic diastolic (congestive) heart failure Assessment and Plan DVT prophylaxis: SCDs, will resume Xarelto. Discharge Planning Pending hospice consultation. The patient will likely need to go to the care center. 45 minutes were dedicated to discussing CODE STATUS and coordinating care regarding aggressive treatment versus hospice. Problem Qualifiers (1) Pneumonia: (2) A-fib: Qualified Codes: I48.1 - Persistent atrial fibrillation (3) Hypotension: Qualified Codes: I95.9 - Hypotension, unspecified Darien Wiseman MD Oct 11, 2017 13:47
[2017-10-11] MEDS ORDERED: MORPHINE SULFATE 4 MG/ML INJ IV PUSH PRN (14:00)
[2017-10-11 14:45] LABS: AMYLASE BODY FLUID 8 U/L; AMYLASE BODY FLUID TYPE PLEURAL
[2017-10-11] MEDS: MORPHINE SULFATE 2 MG/ML INJ IV PUSH PRN ×2 (14:56→21:30)
[2017-10-11] MEDS ORDERED: LORazepam 2 MG/ML VIAL IV ONE (17:30)
[2017-10-11 18:36] LABS: BICARBONATE 25.2 MEQ/L (21.0-32.0); CALCIUM 7.9 MG/DL (8.5-10.1); CREATININE 1.9 MG/DL (0.50-1.00)
[2017-10-11 18:40] LABS: LACTIC ACID SEPSIS PROTOCOL 2.8 mmol/L (0.4-2.0)
[2017-10-11] MEDS ORDERED: AZTREONAM INJ 1,000 MG in SODIUM CHLORIDE 0.9% INJ 100 ML IV SCH (20:00)
[2017-10-11] MEDS: LATANOPROST 0.005% OPHT SOLN 2.5 ML BTL EACH EYE SCH (21:00)
[2017-10-11] MEDS: MIRTAZAPINE 15 MG TAB PO SCH (21:00)
[2017-10-12] MEDS ORDERED: LEVOFLOXACIN 750 MG PREMIX INJ 150 ML IV SCH (09:00)
[2017-10-12] MEDS ORDERED: RIVAROXABAN 15 MG TAB PO SCH (09:00)
== END 2017-10-11 22:50 | disposition hospice, inpatient (51) | DRG 871 ==
LOC: NEPE 15:22 → NEDA 17:58 → N04B 21:53 → HCVI 10-11 09:20
PROVIDERS: ADMIT Hospitalist; ATTEND Hospitalist
PROC: 0W9B3ZZ Drainage of Left Pleural Cavity, Percutaneous Approach (ICD-10-PCS; principal; 2017-10-09)
PROC: 5A09357 Assistance with Respiratory Ventilation, Less than 24 Consecutive Hours, Continuous Positive Airway Pressure (ICD-10-PCS; 2017-10-10)
DX: A41.9 Sepsis, unspecified organism (principal); J69.0 Pneumonitis due to inhalation of food and vomit; J96.01 Acute respiratory failure with hypoxia; E43 Unspecified severe protein-calorie malnutrition; G93.41 Metabolic encephalopathy; I50.33 Acute on chronic diastolic (congestive) heart failure; J90 Pleural effusion, not elsewhere classified; J18.9 Pneumonia, unspecified organism; N17.9 Acute kidney failure, unspecified; J44.1 Chronic obstructive pulmonary disease with (acute) exacerbation; E87.0 Hyperosmolality and hypernatremia; J98.11 Atelectasis; Z68.1 Body mass index [BMI] 19.9 or less, adult; R65.20 Severe sepsis without septic shock; I48.91 Unspecified atrial fibrillation; I11.0 Hypertensive heart disease with heart failure; D64.9 Anemia, unspecified; K21.9 Gastro-esophageal reflux disease without esophagitis; Z66 Do not resuscitate; Z96.643 Presence of artificial hip joint, bilateral; R23.3 Spontaneous ecchymoses; E83.39 Other disorders of phosphorus metabolism; Y95 Nosocomial condition; F32.9 Major depressive disorder, single episode, unspecified; I95.9 Hypotension, unspecified; F41.9 Anxiety disorder, unspecified; M19.90 Unspecified osteoarthritis, unspecified site; R13.10 Dysphagia, unspecified; Z87.01 Personal history of pneumonia (recurrent); Z85.828 Personal history of other malignant neoplasm of skin; Z87.891 Personal history of nicotine dependence; Z79.01 Long term (current) use of anticoagulants; S52.502D Unspecified fracture of the lower end of left radius, subsequent encounter for closed fracture with routine healing
CPT/HCPCS: 32555; 36600; 70450; 71045; 73110; 76604; 76937; 80048; 80053; 81001; 82140; 82150; 82550; 82805; 82945; 83605; 83615; 83735; 83880; 83986; 84100; 84157; 84484; 85025; 85610; 85730; 87015; 87040; 87070; 87086; 87102; 87106; 87116; 87205; 87206; 87449; 88112; 88305; 89051; 93005; 94002; 94003; 94664; C1729; J1644; J1940; J2270; J2543; J3010; J3370; J7030; J7040; J7050; J7613